=== PATIENT | female | born 1995 | race Hispanic/Latino ===

== ENCOUNTER 2018-02-14 15:29 | Emergency (ER) | payer SELFPAY ==
[2018-02-14 16:11] LABS: Absolute Lymphocytes (CBC) 3.5 K/uL (0.7-4.9); Absolute Monocytes 0.6 K/uL (0.1-1.3); Absolute Neutrophil 9.8 K/uL (1.8-8.0); Basophils % 0.4 % (0-1.3); Hematocrit 41.5 % (36.0-45.0); MCH 28.3 pg (27.0-35.0); MPV 9.9 fL (7.6-11.3); Monocytes % 4.5 % (3.3-12.3); RBC Red Blood Cell Count 4.88 M/uL (3.86-4.86)
[2018-02-14 16:25] LABS: Bicarbonate 25 mEq/L (21-31); Glucose Level 111 mg/dL (65-120); Lipase 24 U/L (22-51); Potassium 3.4 mEq/L (3.6-5.0); Sodium Level 140 mEq/L (135-145)
[2018-02-14 16:27] LABS: Urine Amorphous Sediment 1+ /HPF (NONE SEEN); Urine Bacteria 20-50 /HPF (<20); Urine Culture Reflex Order REFLEXED; Urine RBC <5 /HPF (NONE SEEN)
[2018-02-14 16:31] LABS: ALT/SGPT 18 IU/L (10-60); AST/SGOT 20 IU/L (10-42); Albumin 4.3 g/dL (3.2-5.5); Alkaline Phosphatase 89 IU/L (42-121); Amylase Level 62 U/L (28-100); BUN Blood Urea Nitrogen 16 mg/dL (6-20); Bilirubin Direct 0.1 mg/dL (0-0.2); Bilirubin Total 0.7 mg/dL (0.3-1.2)
[2018-02-14 16:32] LABS: Urine Blood NEGATIVE (NEG); Urine Glucose NEGATIVE (NEG); Urine Protein NEGATIVE (NEG); Urine Specific Gravity >1.030 (1.005-1.030); Urine pH 5.5 (5.0-7.0)
[2018-02-14] MEDS ORDERED: NA CHLORIDE 0.9% 1,000 ML ONE (16:32)
--- NOTE | 2018-02-14 17:04 | RAD REPORT ---
EXAM DESCRIPTION: US - Abdomen Exam Limited - 02/14/2018 4:55 pm CLINICAL HISTORY: Abdominal pain. COMPARISON: None. FINDINGS: The patient was not NPO. The gallbladder is mildly contracted. A 1.8 centimeter stone is present within the gallbladder neck. The gallbladder wall is mildly thicken ed measuring 3.2 millimeters. The biliary tree is normal caliber. IMPRESSION: Cholelithiasis. Mild gallbladder wall thickening may indicate cholecystitis or be secondary to the patient not being NPO resulting in mild contraction of the gallbladder
--- NOTE | 2018-02-14 17:04 | EDPHYS ---
Physician Documentation [facility] Name: Vira Silva Age: 22 yrs Sex: Female : 1995 Arrival Date: 02/14/2018 Time: 15:31 Bed 25 Private MD: ED Physician Sree Armando HPI: 02/14 16:09 This 22 yrs old Female presents to ER via EMS with complaints of Abdominal snw Pain. 16:09 The patient presents with abdominal pain in the right upper quadrant. Onset: The snw symptoms/episode began/occurred gradually, 2 month(s) ago, and became worse today, and became persistent. The symptoms do not radiate. Associated signs and symptoms: Pertinent positives: nausea. The symptoms are described as stabbing. Severity of pain: At its worst the pain was moderate. The patient has experienced similar episodes in the past. The patient has not recently seen a physician. 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 - Social history:: Smoking status: Patient uses tobacco products, smokes one-half pack cigarettes per day, Patient uses alcohol, occasionally. ROS: 16:06 Constitutional: Negative for fever, chills, and weight loss, Eyes: Negative for injury, snw pain, redness, and discharge, ENT: Negative for injury, pain, and discharge, Neck: Negative for injury, pain, and swelling, Cardiovascular: Negative for chest pain, palpitations, and edema, Respiratory: Negative for shortness of breath, cough, wheezing, and pleuritic chest pain, Abdomen/GI: Positive for abdominal pain, nausea, Negative for vomiting, diarrhea, and constipation, Back: Negative for injury and pain, : Negative for injury, bleeding, discharge, and swelling, MS/Extremity: Negative for injury and deformity, Skin: Negative for injury, rash, and discoloration, Neuro: Negative for headache, weakness, numbness, tingling, and seizure. Exam: 16:06 Constitutional: This is a well developed, well nourished patient who is awake, alert, snw and in no acute distress. Head/Face: Normocephalic, atraumatic. Eyes: Pupils equal round and reactive to light, extra-ocular motions intact. Lids and lashes normal. Conjunctiva and sclera are non-icteric and not injected. Cornea within normal limits. Periorbital areas with no swelling, redness, or edema. ENT: Nares patent. No nasal discharge, no septal abnormalities noted. Tympanic membranes are normal and external auditory canals are clear. Oropharynx with no redness, swelling, or masses, exudates, or evidence of obstruction, uvula midline. Mucous membranes moist. Neck: Trachea midline, no thyromegaly or masses palpated, and no cervical lymphadenopathy. Supple, full range of motion without nuchal rigidity, or vertebral point tenderness. No Meningismus. Chest/axilla: Normal chest wall appearance and motion. Nontender with no deformity. No lesions are appreciated. Cardiovascular: Regular rate and rhythm with a normal S1 and S2. No gallops, murmurs, or rubs. Normal PMI, no JVD. No pulse deficits. Respiratory: Lungs have equal breath sounds bilaterally, clear to auscultation and percussion. No rales, rhonchi or wheezes noted. No increased work of breathing, no retractions or nasal flaring. Abdomen/GI: Soft, mildly tender, with hyperactive bowel sounds. No distension or tympany. No guarding or rebound. No evidence of tenderness throughout. Minimal/mild + Sherman's Back: No spinal tenderness. No costovertebral tenderness. Full range of motion. Skin: Warm, dry with normal turgor. Normal color with no rashes, no lesions, and no evidence of cellulitis. MS/ Extremity: Pulses equal, no cyanosis. Neurovascular intact. Full, normal range of motion. Neuro: Awake and alert, GCS 15, oriented to person, place, time, and situation. Cranial nerves II-XII grossly intact. Motor strength 5/5 in all extremities. Sensory grossly intact. Cerebellar exam normal. Normal gait. Vital Signs: 15:34 BP 137 / 111; Pulse 100; Resp 19; Temp 98.4; Pulse Ox 99% on R/A; Weight 79.38 kg; aj Height 5 ft. 1 in. (154.94 cm); Pain 5/10; 16:50 BP 104 / 51; Pulse 91; Resp 16; Pulse Ox 100% on R/A; aj 17:22 BP 98 / 83; Pulse 85; Resp 17; Pulse Ox 99% on R/A; aj 15:34 Body Mass Index 33.07 (79.38 kg, 154.94 cm) aj MDM: 15:32 Patient medically screened. snw 17:09 Data reviewed: vital signs, nurses notes. Data interpreted: Pulse oximetry: on room air snw is 100 %. Interpretation: normal. Counseling: I had a detailed discussion with the patient and/or guardian regarding: the historical points, exam findings, and any diagnostic results supporting the discharge/admit diagnosis, lab results, radiology results, the need for outpatient follow up, to return to the emergency department if symptoms worsen or persist or if there are any questions or concerns that arise at home. Special discussion: Based on the patient's Hx, exam, and Dx evaluation, there is no indication for emergent surgery or inpatient Tx. It is understood by the patient/guardian that if the Sx's persist or worsen they need to return immediately for re-evaluation. Based on the history and exam findings, there is no indication for further emergent testing or inpatient evaluation. I discussed with the patient/guardian the need to see the general surgeon for further evaluation of the symptoms. I discussed with the patient/guardian the need to see the primary care provider for further evaluation of the symptoms. 02/14 15:33 Order name: [facility]rine [facility] 02/14 15:33 Order name: Urine Microscopic Only; Complete Time: 16:38 snw 02/14 15:43 Order name: Amylase, Serum; Complete Time: 16:38 snw 02/14 15:43 Order name: Basic Metabolic Panel; Complete Time: 16:38 snw 02/14 15:43 Order name: CBC with Diff; Complete Time: 16:38 snw 02/14 15:43 Order name: Creatinine for Radiology; Complete Time: 16:38 snw 02/14 15:43 Order name: Hepatic Function; Complete Time: 16:38 snw 02/14 15:43 Order name: Lipase; Complete Time: 16:38 snw 02/14 15:43 Order name: US Abdomen Limited; Complete Time: 17:10 snw 02/14 16:28 Order name: Urine Dipstick--Ancillary (enter results); Complete Time: 16:38 mi 02/14 16:28 Order name: Urine --Ancillary (enter results); Complete Time: 16:38 ms 02/14 15:33 Order name: Urine Test (obtain specimen); Complete Time: 16:17 snw 02/14 15:33 Order name: Urine Dipstick-Ancillary (obtain specimen); Complete Time: 16:17 snw 02/14 15:43 Order name: IV Saline Lock; Complete Time: 16:17 snw 02/14 15:43 Order name: Labs collected and sent; Complete Time: 16:17 snw Administered Medications: 16:12 Not Given (given per EMS prior to arrival): TORadol 30 mg IVP once snw 16:15 Drug: NS 0.9% 1000 ml Route: IV; Rate: 125 ml/hr; Site: right forearm; aj 17:22 Follow up: Response: No adverse reaction; IV Status: Order to discontinue infusion; IV aj Intake: 500ml 17:21 Drug: Mefoxin 1 grams Route: IVPB; Infused Over: 30 mins; Site: right antecubital; aj Disposition: 02/14/18 17:04 Discharged to Home. Impression: Cholelithiasis. - Condition is Stable. - Discharge Instructions: Fat and Cholesterol Restricted Diet, Cholelithiasis. - Prescriptions for cefdinir 300 mg Oral capsule - take 1 capsule by ORAL route every 12 hours; 20 capsule. Bentyl 20 mg Oral Tablet - take 2 tablet by ORAL route every 6 hours As needed; 40 tablet. Tylenol- Codeine #3 300-30 mg Oral Tablet - take 2 tablet by ORAL route every 6 hours As needed; 6 tablet. promethazine 25 mg Oral Tablet - take 1 tablet by ORAL route every 6 hours As needed; 20 tablet. - Work release form, Medication Reconciliation Form, Thank You Letter, Antibiotic Education, Prescription Opioid Use form. - Follow up: Jay Batista MD; When: Tomorrow; Reason: Recheck today's complaints, Continuance of care. Addendum: 03/20/2018 19:39 Co-signature as Attending Physician, Sree Armando MD I agree with the assessment and k dr plan of care. Signatures: Dispatcher [employer] Rylie Monahan RN RN aj Rittger, Kevin, MD MD kdr Therrien, Shelly, FERNANDA-C LIME TRIMMER-Csnw Corrections: (The following items were deleted from the chart) 02/14 17:24 17:04 02/14/2018 17:04 Discharged to Home. Impression: Cholelithiasis. Condition is aj Stable. Forms are Medication Reconciliation Form, Thank You Letter, Antibiotic Education, Prescription Opioid Use. Follow up: Jay Batista; When: Tomorrow; Reason: Recheck today's complaints, Continuance of care. snw
--- NOTE | 2018-02-14 17:04 | ER ---
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 Patient reports aj pain has been intermittent for 2 months and is worse after moving and eating. Patient reports eating just prior to pain starting today. Transition of care: patient was not received from another setting of care. Onset of symptoms was February 14, 2018. Care prior to arrival: Medication(s) given: Toradol 30 mg IV IV initiated. 20 GA, in the right antecubital area. 15:31 Method Of Arrival: EMS: [facility] aj 15:31 Acuity: SERGIO 3 aj Triage Assessment: 15:34 General: Appears in no apparent distress. uncomfortable, Behavior is calm, cooperative, aj appropriate for age. Pain: Complains of pain in epigastric area and right upper quadrant Pain currently is 5 out of 10 on a pain scale. Neuro: Level of Consciousness is awake, alert, obeys commands, Oriented to person, place, time, situation. Respiratory: Airway is patent Respiratory effort is even, unlabored, Respiratory pattern is regular, symmetrical. GI: Abdomen is non-distended, obese, Reports lower abdominal pain, nausea. Derm: Skin is intact, is healthy with good turgor, Skin is pink, warm \T\ dry. normal. 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 - Social history:: Smoking status: Patient uses tobacco products, smokes one-half pack cigarettes per day, Patient uses alcohol, occasionally. Screenin:40 Abuse screen: Denies threats or abuse. Denies injuries from another. Nutritional aj screening: No deficits noted. Tuberculosis screening: No symptoms or risk factors identified. Fall Risk None identified. Assessment: 15:40 Reassessment: See triage. aj 17:22 Reassessment: Patient appears in no apparent distress at this time. No changes from aj previously documented assessment. Patient and/or family updated on plan of care and expected duration. Pain level reassessed. Patient is alert, oriented x 3, equal unlabored respirations, skin warm/dry/pink. Patient states symptoms have improved. 17:24 GI: aj Vital Signs: 15:34 BP 137 / 111; Pulse 100; Resp 19; Temp 98.4; Pulse Ox 99% on R/A; Weight 79.38 kg; aj Height 5 ft. 1 in. (154.94 cm); Pain 5/10; 16:50 BP 104 / 51; Pulse 91; Resp 16; Pulse Ox 100% on R/A; aj 17:22 BP 98 / 83; Pulse 85; Resp 17; Pulse Ox 99% on R/A; aj 15:34 Body Mass Index 33.07 (79.38 kg, 154.94 cm) aj ED Course: 15:31 Patient arrived in ED. aj 15:32 Gladys Garza FNP-C is PHCP. snw 15:32 Sree Armando MD is Attending Physician. snw 15:34 Triage completed. aj 15:34 Arm band placed on left wrist. Patient placed in an exam room, on a stretcher. aj 15:41 Maintain EMS IV. Gauge \T\ site: 20 to Right AC. IV is patent. aj 15:42 Rylie Saunders, RN is Primary Nurse. aj 16:37 Ultrasound completed. Patient tolerated well. Notified CRIMINAL DEFENSE LAWYER/FARZANA atkinson. sg3 16:55 US Abdomen Limited In Process Unspecified. EDMS 17:03 Jay Batista MD is Referral Physician. snw 17:22 Patient has correct armband on for positive identification. aj 17:23 No provider procedures requiring assistance completed. IV discontinued, intact, aj bleeding controlled, No redness/swelling at site. Pressure dressing applied. Administered Medications: 16:12 Not Given (given per EMS prior to arrival): TORadol 30 mg IVP once snw 16:15 Drug: NS 0.9% 1000 ml Route: IV; Rate: 125 ml/hr; Site: right forearm; aj 17:22 Follow up: Response: No adverse reaction; IV Status: Order to discontinue infusion; IV aj Intake: 500ml 17:21 Drug: Mefoxin 1 grams Route: IVPB; Infused Over: 30 mins; Site: right antecubital; rajwinder Intake: 17:22 IV: 500ml; Total: 500ml. rajwinder Outcome: 17:04 Discharge ordered by . kishor 17:22 Discharged to home ambulatory, with family. rajwinder 17:22 Condition: good 17:22 Discharge instructions given to patient, Instructed on discharge instructions, follow up and referral plans. medication usage, Demonstrated understanding of instructions, follow-up care, medications, Prescriptions given X 4. 17:24 Patient left the ED. aj Addendum: 02/18/2018 19:15 Addendum: Culture Results: Positive urine culture. No further action required. Bacteria i w sensitive to prescribed antibiotic. Signatures: Dispatcher [employer] Rylie Monahan, RN RN Gladys Oneill, CIRCLE SHEAR OPERATOR-C CIRCLE SHEAR OPERATOR-Csnw Sabrina Almodovar RN RN iw Godinez, Sarah sg3
[2018-02-14] MEDS ORDERED: CEFOXITIN/SWI 1gm 1 GM/10 ML SYR ONE (17:26)
[2018-02-14 17:27] VITALS: TEMP 98.4
[2018-02-14 17:29] VITALS: BP 98/83; O2SAT 99
== END 2018-02-14 17:24 | disposition home or self-care (01) ==
LOC: ER 15:29
DX: K80.20 Calculus of gallbladder without cholecystitis without obstruction (principal)
CPT/HCPCS: 36415; 76705; 80048; 80076; 81003; 81015; 81025; 82150; 83690; 85025; 87077; 87086; 87088; 87186; 96361; 96374; 99284; J7030

== ENCOUNTER 2019-02-22 00:09 | Emergency (ER) | payer SELFPAY ==
--- NOTE | 2019-02-22 00:35 | ER ---
Nurse's Notes [facility] Name: Vira Silva Age: 23 yrs Sex: Female : 1995 Arrival Date: 02/22/2019 Time: 00:12 Bed 13 Private MD: Diagnosis: Otitis media, unspecified, left ear Presentation: 02/22 00:23 Presenting complaint: Patient states: cough X1 week and bilateral ear pain X1 day. ak1 Transition of care: patient was not received from another setting of care. Onset of symptoms was February 22, 2019. Risk Assessment: Do you want to hurt yourself or someone else? Patient reports no desire to harm self or others. Initial Sepsis Screen: Does the patient meet any 2 criteria? No. Patient's initial sepsis screen is negative. Does the patient have a suspected source of infection? No. Patient's initial sepsis screen is negative. Care prior to arrival: None. 00:23 Acuity: SERGIO 4 ak1 00:23 Method Of Arrival: Ambulatory ak1 Triage Assessment: 00:24 General: Appears in no apparent distress. Behavior is calm, cooperative. Pain: ak1 Complains of pain in right ear and left ear. 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 - Social history:: Smoking status: Patient uses tobacco products, smokes one-half pack cigarettes per day. - Ebola Screening: : No symptoms or risks identified at this time. Screenin:24 Abuse screen: Denies threats or abuse. Denies injuries from another. Nutritional ak1 screening: No deficits noted. Tuberculosis screening: No symptoms or risk factors identified. Fall Risk None identified. Assessment: 00:30 General: Appears in no apparent distress. comfortable, Behavior is calm, cooperative, aa1 appropriate for age. Pain: Complains of pain in left ear and right ear. Neuro: Level of Consciousness is awake, alert, obeys commands, Oriented to person, place, time, situation. Respiratory: Reports cough that is non-productive, Airway is patent Respiratory effort is even, unlabored, Respiratory pattern is regular, symmetrical, Breath sounds are clear bilaterally. GI: No signs and/or symptoms were reported involving the gastrointestinal system. : No signs and/or symptoms were reported regarding the genitourinary system. EENT: Reports pain in left ear and right ear. Derm: Skin is intact, is healthy with good turgor, Skin is pink, warm \T\ dry. Musculoskeletal: Circulation, motion, and sensation intact. Capillary refill < 3 seconds. 00:46 Reassessment: Patient appears in no apparent distress at this time. Patient is alert, aa1 oriented x 3, equal unlabored respirations, skin warm/dry/pink. Discussed d/c \T\ f/u instructions with pt; denies questions or concerns at this time. Vital Signs: 00:21 BP 113 / 72; Pulse 115; Resp 18; Temp 98.1; Pulse Ox 99% on R/A; Weight 90.72 kg (R); ak1 Height 5 ft. 1 in. (154.94 cm) (R); Pain 9/10; 00:46 BP 109 / 73; Pulse 92; Resp 18; Pulse Ox 98% on R/A; aa1 00:21 Body Mass Index 37.79 (90.72 kg, 154.94 cm) ak1 ED Course: 00:12 Patient arrived in ED. am2 00:15 [facility]C [facility] kb 00:15 Jerod Waller MD is Attending Physician. kb 00:21 Arm band placed on Patient placed in an exam room, on a stretcher, Patient notified of ak1 wait time. 00:23 Triage completed. ak1 00:24 Patient has correct armband on for positive identification. ak1 00:46 Mary Archuleta, SCOTTIE is Primary Nurse. aa1 00:46 No provider procedures requiring assistance completed. Patient did not have IV access aa1 during this emergency room visit. Administered Medications: No medications were administered Outcome: 00:34 Discharge ordered by . kb 00:46 Discharged to home ambulatory, with significant other. aa1 00:46 Condition: good 00:46 Discharge instructions given to patient, significant other, Instructed on discharge instructions, follow up and referral plans. medication usage, Demonstrated understanding of instructions, follow-up care, medications, Prescriptions given X 1. 00:53 Patient left the ED. aa1 Signatures: Malu Hansen, FERNANDA-C PLATEMAN-Ckb Mary Archuleta RN RN aa1 Savannah Gandhi RN RN ak1 Rylie Dickinson am2
--- NOTE | 2019-02-22 00:36 | EDPHYS ---
Physician Documentation [facility] Name: Vira Silva Age: 23 yrs Sex: Female : 1995 Arrival Date: 02/22/2019 Time: 00:12 Bed 13 Private MD: ED Physician Jerod Waller HPI: 02/22 00:33 This 23 yrs old Female presents to ER via Ambulatory with complaints of Ear kb Pain, Cough. 00:33 The patient presents with pain, moderate. The complaints affect the left ear. Onset: kb The symptoms/episode began/occurred 4 day(s) ago. Modifying factors: The symptoms are alleviated by nothing, the symptoms are aggravated by nothing. Associated signs and symptoms: Pertinent positives: cough, sinus trouble, Pertinent negatives: fever, lightheadedness, nausea, rhinorrhea, shortness of breath, sore throat, tinnitus, vertigo, vomiting. Severity of symptoms: At their worst the symptoms were moderate in the emergency department the symptoms are unchanged. The patient has not experienced similar symptoms in the past. The patient has not recently seen a physician. Pt reports cough and congestion for one week, ear pain for 3-4 days. 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 - Social history:: Smoking status: Patient uses tobacco products, smokes one-half pack cigarettes per day. - Ebola Screening: : No symptoms or risks identified at this time. ROS: 00:32 Constitutional: Negative for fever, chills, and weight loss, Neck: Negative for injury, kb pain, and swelling, Cardiovascular: Negative for chest pain, palpitations, and edema, Abdomen/GI: Negative for abdominal pain, nausea, vomiting, diarrhea, and constipation, Back: Negative for injury and pain, MS/Extremity: Negative for injury and deformity, Skin: Negative for injury, rash, and discoloration, Neuro: Negative for headache, weakness, numbness, tingling, and seizure. 00:32 ENT: Positive for ear pain, sinus congestion. 00:32 Respiratory: Positive for cough. Exam: 00:32 Constitutional: This is a well developed, well nourished patient who is awake, alert, kb and in no acute distress. Head/Face: Normocephalic, atraumatic. Neck: Trachea midline, no thyromegaly or masses palpated, and no cervical lymphadenopathy. Supple, full range of motion without nuchal rigidity, or vertebral point tenderness. No Meningismus. Chest/axilla: Normal chest wall appearance and motion. Nontender with no deformity. No lesions are appreciated. Cardiovascular: Regular rate and rhythm with a normal S1 and S2. No gallops, murmurs, or rubs. Normal PMI, no JVD. No pulse deficits. Respiratory: Lungs have equal breath sounds bilaterally, clear to auscultation and percussion. No rales, rhonchi or wheezes noted. No increased work of breathing, no retractions or nasal flaring. Abdomen/GI: Soft, non-tender, with normal bowel sounds. No distension or tympany. No guarding or rebound. No evidence of tenderness throughout. Skin: Warm, dry with normal turgor. Normal color with no rashes, no lesions, and no evidence of cellulitis. MS/ Extremity: Pulses equal, no cyanosis. Neurovascular intact. Full, normal range of motion. Neuro: Awake and alert, GCS 15, oriented to person, place, time, and situation. Cranial nerves II-XII grossly intact. Motor strength 5/5 in all extremities. Sensory grossly intact. Cerebellar exam normal. Normal gait. 00:32 ENT: External ear(s): are unremarkable, Ear canal(s): are normal, TM's: fluid levels, on the left, Nose: is normal, Mouth: is normal, Posterior pharynx: is normal. Vital Signs: 00:21 BP 113 / 72; Pulse 115; Resp 18; Temp 98.1; Pulse Ox 99% on R/A; Weight 90.72 kg (R); ak1 Height 5 ft. 1 in. (154.94 cm) (R); Pain 9/10; 00:46 BP 109 / 73; Pulse 92; Resp 18; Pulse Ox 98% on R/A; aa1 00:21 Body Mass Index 37.79 (90.72 kg, 154.94 cm) ak1 MDM: 00:23 Patient medically screened. kb 00:32 Data reviewed: vital signs, nurses notes. Data interpreted: Pulse oximetry: on room air kb is 99 %. Interpretation: normal. Counseling: I had a detailed discussion with the patient and/or guardian regarding: the historical points, exam findings, and any diagnostic results supporting the discharge/admit diagnosis, the need for outpatient follow up, a family practitioner, to return to the emergency department if symptoms worsen or persist or if there are any questions or concerns that arise at home. Administered Medications: No medications were administered Disposition: 02/22/19 00:34 Discharged to Home. Impression: Otitis media, unspecified, left ear. - Condition is Stable. - Discharge Instructions: Otitis Media, Adult, [id number]. - Prescriptions for Amoxicillin 875 mg Oral Tablet - take 1 tablet by ORAL route every 12 hours for 10 days; 20 tablet. - Medication Reconciliation Form, Thank You Letter, Antibiotic Education, Prescription Opioid Use form. - Follow up: Emergency Department; When: As needed; Reason: Worsening of condition. Follow up: Private Physician; When: 2 - 3 days; Reason: Recheck today's complaints, Continuance of care, Re-evaluation by your physician. Signatures: Malu Hansen, ROUTER OPERATOR PIN-C ROUTER OPERATOR PIN-Ckb Mary Archuleta, RN RN aa1 Savannah Gandhi RN RN ak1 Corrections: (The following items were deleted from the chart) 00:53 00:34 02/22/2019 00:34 Discharged to Home. Impression: Otitis media, unspecified, left aa1 ear. Condition is Stable. Forms are Medication Reconciliation Form, Thank You Letter, Antibiotic Education, Prescription Opioid Use. Follow up: Emergency Department; When: As needed; Reason: Worsening of condition. Follow up: Private Physician; When: 2 - 3 days; Reason: Recheck today's complaints, Continuance of care, Re-evaluation by your physician. kb
[2019-02-22 01:20] VITALS: TEMP 98.1
[2019-02-22 01:21] VITALS: BP 109/73; O2SAT 98
== END 2019-02-22 00:53 | disposition home or self-care (01) ==
LOC: ER 00:09
DX: H66.92 Otitis media, unspecified, left ear (principal); F17.210 Nicotine dependence, cigarettes, uncomplicated
CPT/HCPCS: 99282

== ENCOUNTER 2019-02-27 23:53 | Emergency (ER) | payer SELFPAY ==
--- NOTE | 2019-02-28 01:08 | EDPHYS ---
Physician Documentation [facility] Name: Vira Silva Age: 23 yrs Sex: Female : 1995 Arrival Date: 02/27/2019 Time: 23:54 Bed 20 Private MD: ED Physician Balijt Baig HPI: 02/28 00:26 This 23 yrs old Female presents to ER via Ambulatory with complaints of Breast jr8 Lump. 00:26 Onset: The symptoms/episode began/occurred gradually, 1 week(s) ago. Associated signs jr8 and symptoms: Pertinent positives: cough, earache, Pertinent negatives: chest pain, fever. Modifying factors: the patient symptoms are aggravated by pressure to site. The patient has not experienced similar symptoms in the past. The patient has been recently seen at the [facility] Emergency Department, this week, for unrelated complaints. Patient presents with the complaint of a small lump to her left breast that was noticed after her underwire was irritating it. She denies additional breast lumps, family history, any redness to the site or drainage, and fever. Reports she was seen last week in this ER for left ear pain and discharged home with an ear infection. Reports that she never got her antibiotic prescription filled. . 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 - Social history:: Smoking status: Patient uses tobacco products, one pack per week. - Ebola Screening: : Patient negative for fever greater than or equal to 101.5 degrees Fahrenheit, and additional compatible Ebola Virus Disease symptoms Patient denies exposure to infectious person Patient denies travel to an Ebola-affected area in the 21 days before illness onset No symptoms or risks identified at this time. ROS: 00:26 Constitutional: Negative for fever, chills, and weight loss, ENT: Negative for injury, jr8 pain, and discharge, Cardiovascular: Negative for chest pain, palpitations, and edema, Respiratory: Negative for shortness of breath, wheezing, and pleuritic chest pain. Positive for cough Abdomen/GI: Negative for abdominal pain, nausea, vomiting, diarrhea, and constipation, MS/Extremity: Negative for injury and deformity, Skin: Negative for injury, rash, and discoloration, Neuro: Negative for headache, weakness, numbness, tingling, and seizure. Exam: 00:30 Constitutional: This is a well developed, well nourished patient who is awake, alert, jr8 and in no acute distress. Cardiovascular: Regular rate and rhythm with a normal S1 and S2. No gallops, murmurs, or rubs. Normal PMI, no JVD. No pulse deficits. Respiratory: Lungs have equal breath sounds bilaterally, clear to auscultation and percussion. No rales, rhonchi or wheezes noted. No increased work of breathing, no retractions or nasal flaring. Abdomen/GI: Soft, non-tender, with normal bowel sounds. No distension or tympany. No guarding or rebound. No evidence of tenderness throughout. Skin: Warm, dry with normal turgor. Normal color with no rashes, no lesions, and no evidence of cellulitis. MS/ Extremity: Pulses equal, no cyanosis. Neurovascular intact. Full, normal range of motion. Neuro: Awake and alert, GCS 15, oriented to person, place, time, and situation. Cranial nerves II-XII grossly intact. Motor strength 5/5 in all extremities. Sensory grossly intact. Cerebellar exam normal. Normal gait. 00:30 ENT: External ear(s): are unremarkable, Ear canal(s): are normal, TM's: bulging, on the left, erythema, that is mild, on the left, Nose: is normal, Mouth: is normal, Posterior pharynx: is normal. 00:30 Chest/axilla: Inspection: normal, no abscess, no cellulitis, no rash, assymetry, is not appreciated, Palpation: 1 cm sized firm and moveable nodule noted to the medial aspect of the left breast that is tender to palpation, Axilla: are normal, no abscess, no cellulitis, no mass, no palpable nodes, no rash, no acute changes, Breasts: abscess, not appreciated, cellulitis, is not appreciated, mass(es), that is small, in the left breast, that is tender, that is freely movable, nipple discharge, is not appreciated, swelling, is not appreciated, tenderness, is not appreciated. Vital Signs: 00:17 BP 112 / 66; Pulse 110; Resp 20; Temp 98.3; Pulse Ox 100% on R/A; Weight 97.52 kg; ed1 Height 5 ft. 1 in. (154.94 cm); Pain 6/10; 01:00 BP 115 / 71; Pulse 93; Resp 19; Pulse Ox 100% on R/A; Pain 6/10; ed1 00:17 Body Mass Index 40.62 (97.52 kg, 154.94 cm) ed1 MDM: 00:58 Patient medically screened. jr8 01:02 Differential diagnosis: lymphadenopathy, breast fibroadenoma. Data reviewed: vital jr8 signs, nurses notes. Counseling: I had a detailed discussion with the patient and/or guardian regarding: the historical points, exam findings, and any diagnostic results supporting the discharge/admit diagnosis, the need for outpatient follow up, for definitive care, a family practitioner, to return to the emergency department if symptoms worsen or persist or if there are any questions or concerns that arise at home. ED course: Discussed with patient that her findings are consistent with lymphadenopathy, which may be related to a current viral illness or infection. Encouraged patient to fill her Rx for antibiotics that was provided last week, and follow up with her PCP for further evaluation if there is no improvement or a worsening of symptoms. Patient verbalized understanding. . Administered Medications: No medications were administered Disposition: 01:41 Co-signature as Attending Physician, Baljit Baig MD. rn Disposition: 02/28/19 01:08 Discharged to Home. Impression: Localized swelling, mass and lump, trunk - Left breast, lymphadenopathy. - Condition is Stable. - Discharge Instructions: Breast Tenderness, Lymphadenopathy. - Medication Reconciliation Form, Thank You Letter, Antibiotic Education, Prescription Opioid Use form. - Follow up: Private Physician; When: 7 - 10 days; Reason: Worsening of condition, Recheck today's complaints, Re-evaluation by your physician. - Problem is new. - Symptoms are unchanged. Signatures: Baljit Baig MD MD rn Riggs, Erika, RN RN ed1 Michael Fierro PA PA jr8 Corrections: (The following items were deleted from the chart) 01:27 01:08 02/28/2019 01:08 Discharged to Home. Impression: Localized swelling, mass and ed1 lump, trunk - Left breast; lymphadenopathy. Condition is Stable. Forms are Medication Reconciliation Form, Thank You Letter, Antibiotic Education, Prescription Opioid Use. Follow up: Private Physician; When: 7 - 10 days; Reason: Worsening of condition, Recheck today's complaints, Re-evaluation by your physician. Problem is new. Symptoms are unchanged. jr8
--- NOTE | 2019-02-28 01:08 | ER ---
Nurse's Notes [facility] Name: Vira Silva Age: 23 yrs Sex: Female : 1995 Arrival Date: 02/27/2019 Time: 23:54 Bed 20 Private MD: Diagnosis: Localized swelling, mass and lump, trunk-Left breast;lymphadenopathy Presentation: 02/28 00:14 Presenting complaint: Patient states: I noticed a lump on my left breast at the ed1 beginning of last week and if I am not wearing a bra and I lean over it hurts. It also hurts if I lay on my stomach. Transition of care: patient was not received from another setting of care. Onset of symptoms was February 21, 2019. Risk Assessment: Do you want to hurt yourself or someone else? Patient reports no desire to harm self or others. Initial Sepsis Screen: Does the patient meet any 2 criteria? No. Patient's initial sepsis screen is negative. Does the patient have a suspected source of infection? No. Patient's initial sepsis screen is negative. Care prior to arrival: None. 00:14 Method Of Arrival: Ambulatory ed1 00:14 Acuity: SERGIO 5 ed1 Triage Assessment: 00:17 General: Appears in no apparent distress. Behavior is calm, cooperative. Pain: ed1 Complains of pain in left breast Pain currently is 6 out of 10 on a pain scale. Quality of pain is described as aching, Pain began 7 days ago. EENT: No signs and/or symptoms were reported regarding the EENT system. Neuro: Level of Consciousness is awake, alert, obeys commands, Oriented to person, place, time, situation. Cardiovascular: Denies chest pain, Heart tones S1 S2 present. Respiratory: Airway is patent Respiratory effort is even, unlabored, Respiratory pattern is regular, symmetrical, Breath sounds are clear bilaterally. GI: No signs and/or symptoms were reported involving the gastrointestinal system. : No signs and/or symptoms were reported regarding the genitourinary system. Derm: Skin is intact, is healthy with good turgor, Skin is pink, warm \T\ dry. Musculoskeletal: Circulation, motion, and sensation intact. Range of motion: intact in all extremities. 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 - Social history:: Smoking status: Patient uses tobacco products, one pack per week. - Ebola Screening: : Patient negative for fever greater than or equal to 101.5 degrees Fahrenheit, and additional compatible Ebola Virus Disease symptoms Patient denies exposure to infectious person Patient denies travel to an Ebola-affected area in the 21 days before illness onset No symptoms or risks identified at this time. Screenin:19 Abuse screen: Denies threats or abuse. Denies injuries from another. Nutritional ed1 screening: No deficits noted. Tuberculosis screening: No symptoms or risk factors identified. Fall Risk None identified. Assessment: 00:19 General: See triage assessment. ed1 01:00 Reassessment: Patient appears in no apparent distress at this time. No changes from ed1 previously documented assessment. Patient and/or family updated on plan of care and expected duration. Pain level reassessed. Patient is alert, oriented x 3, equal unlabored respirations, skin warm/dry/pink. Vital Signs: 00:17 BP 112 / 66; Pulse 110; Resp 20; Temp 98.3; Pulse Ox 100% on R/A; Weight 97.52 kg; ed1 Height 5 ft. 1 in. (154.94 cm); Pain 6/10; 01:00 BP 115 / 71; Pulse 93; Resp 19; Pulse Ox 100% on R/A; Pain 6/10; ed1 00:17 Body Mass Index 40.62 (97.52 kg, 154.94 cm) ed1 ED Course: 02/27 23:54 Patient arrived in ED. do 02/28 00:06 Michael Fierro PA is PHCP. jr8 00:06 Baljit Baig MD is Attending Physician. jr8 00:14 Kim Quezada, SCOTTIE is Primary Nurse. ed1 00:16 Triage completed. ed1 00:17 Arm band placed on. ed1 00:19 Patient has correct armband on for positive identification. Placed in gown. Bed in low ed1 position. Call light in reach. Side rails up X 1. Pulse ox on. NIBP on. 01:26 No provider procedures requiring assistance completed. Patient did not have IV access ed1 during this emergency room visit. Administered Medications: No medications were administered Outcome: 01:08 Discharge ordered by MD. giraldo 01:26 Discharged to home ambulatory. ed1 01:26 Condition: good 01:26 Discharge instructions given to patient, Instructed on discharge instructions, follow up and referral plans. Demonstrated understanding of instructions, follow-up care. 01:27 Patient left the ED. ed1 Signatures: Kim Quezada RN RN ed1 Michael Fierro PA PA jr8 Virginia Licea do
[2019-02-28 03:21] VITALS: TEMP 98.3; O2SAT 100
[2019-02-28 03:25] VITALS: BP 115/71
== END 2019-02-28 01:27 | disposition home or self-care (01) ==
LOC: ER 23:53
DX: R59.0 Localized enlarged lymph nodes (principal); H92.02 Otalgia, left ear; Z72.0 Tobacco use
CPT/HCPCS: 99283

== ENCOUNTER 2019-03-01 23:27 | Emergency (ER) | payer SELFPAY ==
[2019-03-02 00:20] LABS: Absolute Lymphocytes (CBC) 3.1 K/uL (0.7-4.9); Absolute Monocytes 0.9 K/uL (0.1-1.3); Basophils % 0.3 % (0-1.3); Eosinophils % 3.9 % (0-4.4); Hematocrit 39.2 % (36.0-45.0); Lymphocytes % 18.6 % (15.3-44.8); MPV 9.4 fL (7.6-11.3); Monocytes % 5.2 % (3.3-12.3)
[2019-03-02] MEDS ORDERED: METHYLPREDNISOLONE 125 MG INJ ONE (00:21)
[2019-03-02] MEDS ORDERED: NA CHLORIDE 0.9% 500 ML ONE (00:22)
[2019-03-02] MEDS ORDERED: ALBUTEROL 2.5 MG/3 ML NEB SOL ONE (00:22)
[2019-03-02] MEDS ORDERED: ACETAMINOPHEN 500 MG TAB ONE (00:22)
[2019-03-02] MEDS ORDERED: IPRATROPIUM BROM 0.5MG/2.5ML ONE (00:22)
[2019-03-02 00:30] LABS: BUN Blood Urea Nitrogen 11 mg/dL (7-18); Bicarbonate 25 mmol/L (21-32); Glucose Level 92 mg/dL (74-106); Potassium 3.6 mmol/L (3.5-5.1); Sodium Level 141 mmol/L (136-145)
--- NOTE | 2019-03-02 00:45 | ER ---
Nurse's Notes [facility] Name: Vira Silva Age: 23 yrs Sex: Female : 1995 Arrival Date: 03/01/2019 Time: 23:28 Bed 6 Private MD: Diagnosis: Asthmatic bronchitis. Leukocytosis Presentation: 03/01 23:35 Presenting complaint: Patient states: chest tightness and sharp pain for 2 days non rr5 radiating. pain score 10/10. having some dry cough. they found out I have lump on my chest and I'm having left ear infection for 2 weeks. 23:35 Transition of care: patient was not received from another setting of care. Onset of rr5 symptoms was February 27, 2019. Risk Assessment: Do you want to hurt yourself or someone else? Patient reports no desire to harm self or others. Initial Sepsis Screen: Does the patient meet any 2 criteria? No. Patient's initial sepsis screen is negative. Does the patient have a suspected source of infection? No. Patient's initial sepsis screen is negative. Care prior to arrival: None. 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 - Social history:: Smoking status: Patient uses tobacco products, 4 sticks per day, Patient/guardian denies using alcohol, street drugs. - Ebola Screening: : Patient negative for fever greater than or equal to 101.5 degrees Fahrenheit, and additional compatible Ebola Virus Disease symptoms Patient denies exposure to infectious person Patient denies travel to an Ebola-affected area in the 21 days before illness onset. Screenin:05 Abuse screen: Denies threats or abuse. Denies injuries from another. Nutritional rr5 screening: No deficits noted. Tuberculosis screening: No symptoms or risk factors identified. Fall Risk IV access (20 points). Total Hill Fall Scale indicates No Risk (0-24 pts). Assessment: 03/01 23:40 General: Appears in no apparent distress. uncomfortable, Behavior is calm, cooperative, rr5 appropriate for age. Pain: Complains of pain in head and chest Pain does not radiate. Pain currently is 10 out of 10 on a pain scale. Quality of pain is described as sharp, Pain began 2-3 days ago. Is intermittent. Neuro: Level of Consciousness is awake, alert, obeys commands, Oriented to person, place, time, situation, Appropriate for age. Cardiovascular: Reports chest pain, Capillary refill < 3 seconds Patient's skin is warm and dry. Respiratory: Reports cough that is non-productive, dry, Airway is patent Respiratory effort is even, unlabored, Respiratory pattern is regular, symmetrical. 23:40 GI: No signs and/or symptoms were reported involving the gastrointestinal system. : rr5 No signs and/or symptoms were reported regarding the genitourinary system. EENT: Reports have ear infection for 2 weeks. Derm: Skin is intact, Skin temperature is warm. Musculoskeletal: Circulation, motion, and sensation intact. Range of motion: intact in all extremities. 03/02 00:20 Reassessment: Patient appears in no apparent distress at this time. Patient is alert, rr5 oriented x 3, equal unlabored respirations, skin warm/dry/pink. no complaints made awaiting for result. Patient states symptoms have improved. Reassessment: Patient appears in no apparent distress at this time. 01:10 Reassessment: Patient appears in no apparent distress at this time. Patient is alert, rr5 oriented x 3, equal unlabored respirations, skin warm/dry/pink. discharge instruction given and explained without complaints made. vitally stable. Patient denies pain at this time. Patient states feeling better. Patient states symptoms have improved. Vital Signs: 03/01 23:35 BP 134 / 68; Pulse 114; Resp 19; Temp 98.5; Pulse Ox 100% ; Weight 97.52 kg; Height 5 rr5 ft. 1 in. (154.94 cm); Pain 08/25; 03/02 00:30 BP 125 / 65; Pulse 105; Resp 20; Pulse Ox 99% on R/A; rr5 01:10 BP 126 / 60; Pulse 100; Resp 18; Temp 97.9; Pulse Ox 99% on R/A; Pain 0/10; rr5 03/01 23:35 Body Mass Index 40.62 (97.52 kg, 154.94 cm) rr5 ED Course: 03/01 23:28 Patient arrived in ED. am2 23:31 Huseyin Perdomo MD is Attending Physician. pkl 23:37 Brandyn Adams, SCOTTIE is Primary Nurse. rr5 23:40 Triage completed. rr5 23:50 Patient has correct armband on for positive identification. Placed in gown. Bed in low rr5 position. Call light in reach. Side rails up X2. booster assembler on. Pulse ox on. NIBP on. 03/02 00:00 Arm band placed on. EKG completed in triage. Results shown to MD. rr5 00:00 Inserted saline lock: 20 gauge in right forearm, using aseptic technique. Blood rr5 collected. 00:00 No provider procedures requiring assistance completed. Patient maintains SpO2 rr5 saturation greater than 95% on room air. 00:13 XRAY CXR (1 view) In Process Unspecified. EDMS 01:10 IV discontinued, intact, bleeding controlled, No redness/swelling at site. Pressure rr5 dressing applied. Administered Medications: 00:05 Drug: Albuterol - atroVENT (3:1) (2.5 mg - 0.5 mg) 3 ml Route: Nebulizer; rr5 01:19 Follow up: Response: No adverse reaction rr5 00:08 Drug: NS 0.9% 500 ml Route: IV; Rate: bolus; Site: right forearm; rr5 01:10 Follow up: Response: No adverse reaction; IV Status: Completed infusion; IV Intake: rr5 500ml 00:10 Drug: Tylenol 1000 mg Route: PO; rr5 01:20 Follow up: Response: No adverse reaction rr5 00:11 Drug: SOLU-Medrol 125 mg Route: IVP; Site: right forearm; rr5 01:19 Follow up: Response: No adverse reaction rr5 Intake: 01:10 IV: 500ml; Total: 500ml. rr5 Outcome: 00:45 Discharge ordered by . pkl 01:20 Discharged to home ambulatory. rr5 01:20 Condition: stable 01:20 Discharge instructions given to patient, Instructed on discharge instructions, follow up and referral plans. medication usage, Demonstrated understanding of instructions, follow-up care, medications, Prescriptions given X 3. 01:20 Patient left the ED. rr5 Signatures: Dispatcher [employer] EDHuseyin Santos MD MD pkl Moreno, Amanda am2 Roque, Raymond, RN RN rr5
--- NOTE | 2019-03-02 00:45 | EDPHYS ---
Physician Documentation [facility] Name: Vira Silva Age: 23 yrs Sex: Female : 1995 Arrival Date: 03/01/2019 Time: 23:28 Bed 6 Private MD: ED Physician Huseyin Perdomo HPI: 03/01 23:57 This 23 yrs old Female presents to ER via Ambulatory with complaints of Chest pkl Pain. 23:57 The patient or guardian reports chest pain that is located primarily in the substernal pkl area. The pain does not radiate. Associated signs and symptoms: Pertinent positives: cough, shortness of breath. The chest pain is described as sharp. 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 - Social history:: Smoking status: Patient uses tobacco products, 4 sticks per day, Patient/guardian denies using alcohol, street drugs. - Ebola Screening: : Patient negative for fever greater than or equal to 101.5 degrees Fahrenheit, and additional compatible Ebola Virus Disease symptoms Patient denies exposure to infectious person Patient denies travel to an Ebola-affected area in the 21 days before illness onset. ROS: 03/01 23:57 Eyes: Negative for injury, pain, redness, and discharge, ENT: Negative for injury, pkl pain, and discharge, Neck: Negative for injury, pain, and swelling. Cardiovascular: Positive for chest pain. Respiratory: Positive for cough, with no reported sputum, shortness of breath, wheezing. Abdomen/GI: Negative for abdominal pain, nausea, vomiting, and diarrhea. Back: Negative for acute changes. : Negative for urinary symptoms. MS/extremity: Negative for acute changes. Skin: Negative for rash. Neuro: Negative for altered mental status. Exam: 23:57 Head/Face: Normocephalic, atraumatic. Eyes: Pupils equal round and reactive to light, pkl extra-ocular motions intact. Lids and lashes normal. Conjunctiva and sclera are non-icteric and not injected. Cornea within normal limits. Periorbital areas with no swelling, redness, or edema. ENT: Nares patent. No nasal discharge, no septal abnormalities noted. Tympanic membranes are normal and external auditory canals are clear. Oropharynx with no redness, swelling, or masses, exudates, or evidence of obstruction, uvula midline. Mucous membranes moist. Neck: Trachea midline, no thyromegaly or masses palpated, and no cervical lymphadenopathy. Supple, full range of motion without nuchal rigidity, or vertebral point tenderness. No Meningismus. Chest/axilla: Normal chest wall appearance and motion. Nontender with no deformity. No lesions are appreciated. 23:57 Cardiovascular: Rate: tachycardic, actual rate is 114 bpm, Rhythm: regular. 23:57 Respiratory: the patient does not display signs of respiratory distress, Respirations: normal, Breath sounds: bronchial sounds, that are mild, are scattered. 23:57 Abdomen/GI: Exam negative for acute changes, Bowel sounds: normal, Palpation: abdomen is soft and non-tender, in all quadrants. 23:57 Back: Exam negative for acute changes. 23:57 : Exam negative for acute changes. 23:57 Musculoskeletal/extremity: Exam is negative for acute changes. 23:57 Skin: Exam negative for rash. 23:57 Neuro: Orientation: is normal, Mentation: is normal, Cranial nerves: grossly normal, Motor: is normal. Vital Signs: 23:35 BP 134 / 68; Pulse 114; Resp 19; Temp 98.5; Pulse Ox 100% ; Weight 97.52 kg; Height 5 rr5 ft. 1 in. (154.94 cm); Pain 10/10; 03/02 00:30 BP 125 / 65; Pulse 105; Resp 20; Pulse Ox 99% on R/A; rr5 01:10 BP 126 / 60; Pulse 100; Resp 18; Temp 97.9; Pulse Ox 99% on R/A; Pain 0/10; rr5 03/01 23:35 Body Mass Index 40.62 (97.52 kg, 154.94 cm) rr5 MDM: 03/01 23:31 Patient medically screened. pkl 03/02 00:43 Data reviewed: vital signs, nurses notes, lab test result(s), radiologic studies, plain pkl films. 03/01 23:55 Order name: CBC with Diff; Complete Time: 00:40 pkl 03/01 23:55 Order name: Chem 7; Complete Time: 00:40 pkl 03/01 23:55 Order name: D-Dimer; Complete Time: 00:40 pkl 03/01 23:56 Order name: XRAY CXR (1 view) pkl 03/02 00:02 Order name: Urine Dipstick--Ancillary (enter results) mw2 03/02 00:02 Order name: Urine --Ancillary (enter results) [facility] Administered Medications: 00:05 Drug: Albuterol - atroVENT (3:1) (2.5 mg - 0.5 mg) 3 ml Route: Nebulizer; rr5 01:19 Follow up: Response: No adverse reaction rr5 00:08 Drug: NS 0.9% 500 ml Route: IV; Rate: bolus; Site: right forearm; rr5 01:10 Follow up: Response: No adverse reaction; IV Status: Completed infusion; IV Intake: rr5 500ml 00:10 Drug: Tylenol 1000 mg Route: PO; rr5 01:20 Follow up: Response: No adverse reaction rr5 00:11 Drug: SOLU-Medrol 125 mg Route: IVP; Site: right forearm; rr5 01:19 Follow up: Response: No adverse reaction rr5 Disposition: 03/02/19 00:45 Discharged to Home. Impression: Asthmatic bronchitis. Leukocytosis. - Condition is Stable. - Prescriptions for Zithromax Z- Ramin 250 mg Oral Tablet - take 1 tablet by ORAL route as directed for 5 days Day 1 - take two (2) tablets one time. Day 2, 3, 4 , 5 take one (1) tablet once daily.; 6 tablet. Albuterol Sulfate 90 mcg/actuation - inhale 1-2 puff by INHALATION route every 4-6 hours; 1 Inhaler. Guaifenesin AC 10- 100 mg/5 mL Oral Liquid - take 10 milliliters by ORAL route every 8 hours As needed; 120 milliliter. - Medication Reconciliation Form, Thank You Letter, Antibiotic Education, Prescription Opioid Use form. - Follow up: Private Physician; When: 2 - 3 days; Reason: Re-evaluation by your physician. - Problem is new. - Symptoms have improved. Signatures: Dispatcher [employer] EDSC Huseyin Perdomo MD MD pkl Brandyn Adams RN RN rr5 Corrections: (The following items were deleted from the chart) 01:20 00:45 03/02/2019 00:45 Discharged to Home. Impression: Asthmatic bronchitis. rr5 Leukocytosis. Condition is Stable. Forms are Medication Reconciliation Form, Thank You Letter, Antibiotic Education, Prescription Opioid Use. Follow up: Private Physician; When: 2 - 3 days; Reason: Re-evaluation by your physician. Problem is new. Symptoms have improved. pkl
[2019-03-02 01:32] VITALS: O2SAT 99
[2019-03-02 01:32] LABS: Urine Blood NEGATIVE (NEG); Urine Glucose NEGATIVE (NEG); Urine Protein NEGATIVE (NEG); Urine Specific Gravity >1.030 (1.005-1.030); Urine pH 5.5 (5.0-7.0)
[2019-03-02 01:33] VITALS: BP 126/60; TEMP 97.9
--- NOTE | 2019-03-02 07:33 | EKG ---
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
--- NOTE | 2019-03-02 08:20 | RAD REPORT ---
EXAM DESCRIPTION: RAD - Chest Single View - 03/02/2019 12:10 am CLINICAL HISTORY: Chest pain;Cough Chest pain. COMPARISON: No comparisons FINDINGS: Portable technique limits examination quality. The lungs are underinflated but grossly clear. The heart is normal in size. No displaced fractures.
== END 2019-03-02 01:20 | disposition home or self-care (01) ==
LOC: ER 23:27
DX: J45.909 Unspecified asthma, uncomplicated (principal); D72.829 Elevated white blood cell count, unspecified; Z72.0 Tobacco use
CPT/HCPCS: 36415; 71045; 80048; 81003; 81025; 85025; 85379; 93005; 94640; 96361; 96374; 99285; J2930

== ENCOUNTER 2019-10-14 09:39 | Inpatient (IN) | payer SELFPAY ==
[2019-10-14] MEDS ORDERED: FENTANYL CITR 100 MCG/2 ML ONE (10:31)
[2019-10-14 10:36] LABS: Absolute Lymphocytes (CBC) 3.4 K/uL (0.7-4.9); Basophils % 0.4 % (0-1.3); Hematocrit 38.6 % (36.0-45.0); Lymphocytes % 22.6 % (15.3-44.8); MPV 9.4 fL (7.6-11.3); RBC Red Blood Cell Count 4.64 M/uL (3.86-4.86)
[2019-10-14 10:54] LABS: ALT/SGPT 22 U/L (12-78); AST/SGOT 13 U/L (15-37); Albumin 3.4 g/dL (3.4-5.0); Alkaline Phosphatase 85 U/L (45-117); BUN Blood Urea Nitrogen 15 mg/dL (7-18); Bicarbonate 25 mmol/L (21-32); Bilirubin Direct < 0.1 mg/dL (0-0.2); Bilirubin Total 0.2 mg/dL (0.2-1.0); Glucose Level 95 mg/dL (74-106); Lipase 92 U/L (73-393); Potassium 3.9 mmol/L (3.5-5.1); Protein, Total 7.4 g/dL (6.4-8.2); Sodium Level 142 mmol/L (136-145)
[2019-10-14 13:32] LABS: Urine Blood TRACE (NEG); Urine Glucose NEGATIVE (NEG); Urine Protein NEGATIVE (NEG); Urine Specific Gravity 1.025 (1.005-1.030); Urine pH 6.5 (5.0-7.0)
--- NOTE | 2019-10-14 13:49 | RAD REPORT ---
EXAM DESCRIPTION: CT - Abdomen Pelvis W Contrast - 10/14/2019 1:31 pm CLINICAL HISTORY: ABD PAIN, right upper quadrant pain, history of gallstones COMPARISON: None. TECHNIQUE: Biphasic, helical CT imaging of the abdomen and pelvis was performed following 100 ml non -ionic IV contrast. Oral contrast was given. All CT scans are performed using dose optimization technique as appropriate and may include automated exposure control or mA/KV adjustment according to patient size. FINDINGS: No suspicious findings in the lung bases. Liver is borderline to mildly fatty infiltrated. No focal liver lesions. Spleen and pancreas show no suspicious findings. Patient has at least 3 moderately large gallstones present 1 of which is positio ricarda at the neck of the gallbladder. Gallbladder wall appears slightly thickened and edematous. There is a trace amount of stranding in the pericholecystic fatty tissues. No duct stone or biliary tree di latation seen. Symmetric renal function is seen with no hydronephrosis or suspicious renal mass. No pyelonephritis o r acute parenchymal process. No bladder abnormalities. No acute adrenal finding. Uterus and ovaries s how no suspicious findings. Left ovary contains a 2.5 centimeter cyst. No cyst rupture or hemorrhage findings. No dilated bowel loops or bowel wall thickening. Appendicitis is not suspected. No acute GI process s een. No free air, free fluid or inflammatory stranding. No hernia, mass or bulky lymphadenopathy. No suspicious bony findings. IMPRESSION: Probable acute cholecystitis. Patient has several moderately large gallstones 1 of which is at the neck of the gallbladder. Gallbladder wall appears slightly thickened and edematous. Correlation can be made with clinical presentation. Sonography could be performed as clinical finding s warrant. No biliary tree dilatation. Borderline to mild fatty infiltration of the liver.
[2019-10-14] MEDS ORDERED: NA CHLORIDE 0.9% 50 ML IV ONE (14:32)
[2019-10-14] MEDS ORDERED: CEFOXITIN SODIUM 1 GM/VIAL ONE ×3 (14:32→22:40)
--- NOTE | 2019-10-14 16:07 | ER ---
Nurse's Notes [facility] Name: Vira Silva Age: 24 yrs Sex: Female : 1995 Arrival Date: 10/14/2019 Time: 09:40 Bed 24 Private MD: Diagnosis: Acute cholecystitis Presentation: 10/14 09:59 Presenting complaint: Patient states: RUQ pain that began today at 0900. Denies aa5 nausea/vomiting. Pt states "I know it's my gallbladder". Transition of care: patient was not received from another setting of care. Onset of symptoms was October 14, 2019. Risk Assessment: Do you want to hurt yourself or someone else? Patient reports no desire to harm self or others. Initial Sepsis Screen: Does the patient meet any 2 criteria? No. Patient's initial sepsis screen is negative. Does the patient have a suspected source of infection? No. Patient's initial sepsis screen is negative. Care prior to arrival: None. 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 - Social history:: Smoking status: Patient uses tobacco products, smokes one-half pack cigarettes per day. - Ebola Screening: : No symptoms or risks identified at this time. Screenin:18 Abuse screen: Denies threats or abuse. Denies injuries from another. Nutritional wh screening: No deficits noted. Tuberculosis screening: No symptoms or risk factors identified. Fall Risk None identified. Assessment: 10:20 General: Appears in no apparent distress. Behavior is calm, cooperative, appropriate wh for age. Pain: Complains of pain in right upper quadrant Pain does not radiate. Pain currently is 8 out of 10 on a pain scale. Quality of pain is described as burning, Pain began 2 hours ago. Neuro: Level of Consciousness is awake, alert, obeys commands, Oriented to person, place, time, situation, Appropriate for age. Cardiovascular: Heart tones S1 S2. Respiratory: Airway is patent Respiratory effort is even, unlabored, Respiratory pattern is regular, symmetrical. Respiratory: Breath sounds are clear bilaterally. GI: Abdomen is flat, non-distended, Bowel sounds present X 4 quads. Abd is soft Abdomen is tender to palpation in right upper quadrant. : No signs and/or symptoms were reported regarding the genitourinary system. EENT: No signs and/or symptoms were reported regarding the EENT system. Derm: Skin is intact, is healthy with good turgor, Skin is pink, warm \\T\\ dry. normal. Musculoskeletal: Circulation, motion, and sensation intact. 11:41 Reassessment: Patient appears in no apparent distress at this time. No changes from previously documented assessment. Patient and/or family updated on plan of care and expected duration. Pain level reassessed. Patient is alert, oriented x 3, equal unlabored respirations, skin warm/dry/pink. 13:08 Reassessment: Patient appears in no apparent distress at this time. No changes from previously documented assessment. Patient and/or family updated on plan of care and expected duration. Pain level reassessed. Patient is alert, oriented x 3, equal unlabored respirations, skin warm/dry/pink. Patient states feeling better. Patient states symptoms have improved. 13:36 Reassessment: Pt back from CT scan. 14:38 Reassessment: Patient appears in no apparent distress at this time. No changes from previously documented assessment. Patient and/or family updated on plan of care and expected duration. Pain level reassessed. Patient is alert, oriented x 3, equal unlabored respirations, skin warm/dry/pink. Patient denies pain at this time. 16:01 Reassessment: Patient appears in no apparent distress at this time. No changes from previously documented assessment. Patient and/or family updated on plan of care and expected duration. Pain level reassessed. Patient is alert, oriented x 3, equal unlabored respirations, skin warm/dry/pink. FF up with provider regarding POC Patient denies pain at this time. 16:10 Reassessment: Provider at bedside explaining POC need for admit. Vital Signs: 10:00 BP 106 / 71; Pulse 95; Resp 18 S; Temp 98.6(O); Pulse Ox 99% on R/A; Weight 99.79 kg aa5 (R); Height 5 ft. 1 in. (154.94 cm) (R); Pain 10/10; 11:42 BP 100 / 66; Pulse 75; Resp 18; Pulse Ox 98% on R/A; wh 13:09 BP 94 / 65; Pulse 77; Resp 16; Pulse Ox 100% ; wh 14:37 BP 104 / 57; Pulse 78; Resp 18; Pulse Ox 100% ; wh 16:02 BP 124 / 84; Pulse 81; Resp 18; Pulse Ox 99% ; wh 10:00 Body Mass Index 41.57 (99.79 kg, 154.94 cm) aa5 ED Course: 09:40 Patient arrived in ED. am2 09:46 Gladys Garza FNP-C is PHCP. snw 09:46 Sree Armando MD is Attending Physician. snw 10:00 Triage completed. aa5 10:00 Arm band placed on. aa5 10:05 Day Rasmussen is Primary Nurse. 10:30 Inserted saline lock: 20 gauge in right antecubital area, using aseptic technique. Blood collected. 11:01 Patient has correct armband on for positive identification. Placed in gown. Bed in low wh position. Call light in reach. Side rails up X 1. Pulse ox on. NIBP on. 16:06 Kam Mares MD is Hospitalizing Provider. snw 17:11 No provider procedures requiring assistance completed. Patient admitted, IV remains in place. Administered Medications: 10:32 Drug: fentaNYL (PF) 25 mcg {Note: RASS 0.} Route: IVP; Site: right antecubital; 11:42 Follow up: Response: No adverse reaction; Pain is decreased; RASS: Alert and Calm (0) 14:31 Drug: Mefoxin 1 grams Route: IVPB; Infused Over: 30 mins; Site: right antecubital; 17:12 Follow up: Response: No adverse reaction; IV Status: Completed infusion Outcome: 16:06 Decision to Hospitalize by Provider. snw 17:11 Admitted to Med/surg accompanied by tech, family with patient, via wheelchair, room wh 208, with chart, Report called to Ankit Moy RN 17:11 Condition: stable 17:11 Instructed on the need for admit. 17:13 Patient left the ED. Signatures: Gladys Garza FNP-C PUMP SERVICE SUPERVISOR-Csnw Yeni Frederick RN RN aa5 Rylie Dickinson am2 Day Rasmussen Corrections: (The following items were deleted from the chart) 10:02 10:00 Pulse 95bpm; Resp 18bpm; Spontaneous; Pulse Ox 99% RA; Temp 98.6F Oral; 99.79 kg aa5 Reported; Height 5 ft. 1 in. Reported; BMI: 41.5; Pain 08/25; aa5
--- NOTE | 2019-10-14 16:08 | EDPHYS ---
Physician Documentation [facility] Name: Vira Silva Age: 24 yrs Sex: Female : 1995 Arrival Date: 10/14/2019 Time: 09:40 Bed 24 Private MD: ED Physician Sree Armando HPI: 10/14 10:35 This 24 yrs old Female presents to ER via Ambulatory with complaints of snw gallbladder pain. 10:35 Onset: The symptoms/episode began/occurred suddenly, at 09:00. Associated signs and snw symptoms: Pertinent positives: nausea. The patient has experienced similar episodes in the past. The patient has not recently seen a physician. known cholelithiasis. 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 - Social history:: Smoking status: Patient uses tobacco products, smokes one-half pack cigarettes per day. - Ebola Screening: : No symptoms or risks identified at this time. ROS: 10:35 Constitutional: Negative for fever, chills, and weight loss, Eyes: Negative for injury, snw pain, redness, and discharge, ENT: Negative for injury, pain, and discharge, Neck: Negative for injury, pain, and swelling, Cardiovascular: Negative for chest pain, palpitations, and edema, Respiratory: Negative for shortness of breath, cough, wheezing, and pleuritic chest pain, : Negative for injury, bleeding, discharge, and swelling, MS/Extremity: Negative for injury and deformity, Skin: Negative for injury, rash, and discoloration, Neuro: Negative for headache, weakness, numbness, tingling, and seizure, Psych: Negative for depression, anxiety, suicide ideation, homicidal ideation, and hallucinations. 10:35 Abdomen/GI: Positive for abdominal pain. 10:35 Back: Positive for radiated pain. Exam: 10:32 Constitutional: This is a well developed, well nourished patient who is awake, alert, snw and in no acute distress. Head/Face: Normocephalic, atraumatic. Eyes: Pupils equal round and reactive to light, extra-ocular motions intact. Lids and lashes normal. Conjunctiva and sclera are non-icteric and not injected. Cornea within normal limits. Periorbital areas with no swelling, redness, or edema. ENT: Nares patent. No nasal discharge, no septal abnormalities noted. Tympanic membranes are normal and external auditory canals are clear. Oropharynx with no redness, swelling, or masses, exudates, or evidence of obstruction, uvula midline. Mucous membranes moist. Neck: Trachea midline, no thyromegaly or masses palpated, and no cervical lymphadenopathy. Supple, full range of motion without nuchal rigidity, or vertebral point tenderness. No Meningismus. Chest/axilla: Normal chest wall appearance and motion. Nontender with no deformity. No lesions are appreciated. Cardiovascular: Regular rate and rhythm with a normal S1 and S2. No gallops, murmurs, or rubs. Normal PMI, no JVD. No pulse deficits. Respiratory: Lungs have equal breath sounds bilaterally, clear to auscultation and percussion. No rales, rhonchi or wheezes noted. No increased work of breathing, no retractions or nasal flaring. Back: No spinal tenderness. No costovertebral tenderness. Full range of motion. Skin: Warm, dry with normal turgor. Normal color with no rashes, no lesions, and no evidence of cellulitis. MS/ Extremity: Pulses equal, no cyanosis. Neurovascular intact. Full, normal range of motion. Neuro: Awake and alert, GCS 15, oriented to person, place, time, and situation. Cranial nerves II-XII grossly intact. Motor strength 5/5 in all extremities. Sensory grossly intact. Cerebellar exam normal. Normal gait. Psych: Awake, alert, with orientation to person, place and time. Behavior, mood, and affect are within normal limits. 10:32 Abdomen/GI: Inspection: obese Bowel sounds: normal, Palpation: moderate abdominal tenderness, severe abdominal tenderness, in the right upper quadrant, Indicators: Sherman's sign is positive. Vital Signs: 10:00 BP 106 / 71; Pulse 95; Resp 18 S; Temp 98.6(O); Pulse Ox 99% on R/A; Weight 99.79 kg aa5 (R); Height 5 ft. 1 in. (154.94 cm) (R); Pain 10/10; 11:42 BP 100 / 66; Pulse 75; Resp 18; Pulse Ox 98% on R/A; wh 13:09 BP 94 / 65; Pulse 77; Resp 16; Pulse Ox 100% ; wh 14:37 BP 104 / 57; Pulse 78; Resp 18; Pulse Ox 100% ; wh 16:02 BP 124 / 84; Pulse 81; Resp 18; Pulse Ox 99% ; wh 10:00 Body Mass Index 41.57 (99.79 kg, 154.94 cm) aa5 MDM: 10:08 Patient medically screened. snw 15:28 Data reviewed: vital signs, nurses notes, lab test result(s), radiologic studies, CT snw scan. Data interpreted: Pulse oximetry: on room air is 100 %. Interpretation: normal. Counseling: I had a detailed discussion with the patient and/or guardian regarding: the historical points, exam findings, and any diagnostic results supporting the discharge/admit diagnosis, lab results, radiology results. Physician consultation: Sree Armando MD was called at 14:30, was contacted at 14:30, regarding consult, report to Dr. Mares. 16:04 Counseling: I had a detailed discussion with the patient and/or guardian regarding: snw admit to Dr. Mares, clear liquids until midnight and then NPO, abx, pain meds, nausea meds. 10/14 10:12 Order name: Basic Metabolic Panel [facility] 10/14 10:12 Order name: CBC with Diff [facility] 10/14 10:12 Order name: Creatinine for Radiology [facility] 10/14 10:12 Order name: Hepatic Function [facility] 10/14 10:12 Order name: Lipase [facility] 10/14 10:12 Order name: Urine Culture [facility] 10/14 10:12 Order name: Urine Microscopic Only [facility] 10/14 10:37 Order name: CBC with Automated Diff; Complete Time: 10:38 EDMS 10/14 10:53 Order name: Creatinine (Radiology Only); Complete Time: 10:53 EDMI 10/14 10:55 Order name: Basic Metabolic Panel; Complete Time: 10:55 EDMS 10/14 10:55 Order name: Liver (Hepatic) Function; Complete Time: 10:55 EDMS 10/14 10:55 Order name: Lipase; Complete Time: 10:55 EDMS 10/14 11:31 Order name: Urine Dipstick--Ancillary (enter results) 10/14 11:31 Order name: Urine --Ancillary (enter results) 10/14 10:12 Order name: IV Saline Lock; Complete Time: 10:31 snw 10/14 10:12 Order name: Labs collected and sent; Complete Time: 10:31 snw 10/14 10:12 Order name: Urine Test (obtain specimen); Complete Time: 11:30 snw 10/14 10:12 Order name: Urine Dipstick-Ancillary (obtain specimen); Complete Time: 11:30 snw 10/14 12:36 Order name: CT Abd/Pelvis - IV Contrast Only snw 10/14 13:32 Order name: Urine --Ancillary; Complete Time: 13:33 EDMS 10/14 13:32 Order name: Urine Dipstick-Ancillary; Complete Time: 13:33 EDMS 10/14 13:50 Order name: CT; Complete Time: 13:52 EDMI 10/14 16:08 Order name: Diet Clear Liquid; Complete Time: 16:08 snw Administered Medications: 10:32 Drug: fentaNYL (PF) 25 mcg {Note: RASS 0.} Route: IVP; Site: right antecubital; 11:42 Follow up: Response: No adverse reaction; Pain is decreased; RASS: Alert and Calm (0) 14:31 Drug: Mefoxin 1 grams Route: IVPB; Infused Over: 30 mins; Site: right antecubital; 17:12 Follow up: Response: No adverse reaction; IV Status: Completed infusion Disposition: 10/14/19 16:06 Hospitalization ordered by Kam Mares for Inpatient Admission. Preliminary diagnosis is Acute cholecystitis. - Bed requested for Telemetry/MedSurg (Inpatient). - Status is Inpatient Admission. - Condition is Stable. - Problem is an acute exacerbation. - Symptoms are unchanged. UTI on Admission? No Addendum: 10/17/2019 10:13 Co-signature as Attending Physician, Sree Armando MD I agree with the assessment and k dr plan of care. Signatures: Dispatcher [employer] Sree Rivera MD MD kdr Therrien, Shelly, MUSIC ENGRAVER-C MUSIC ENGRAVER-Csnw Yeni Frederick RN RN aa5 Day Rasmussen Ragini Braun Corrections: (The following items were deleted from the chart) 10/14 16:20 16:06 Hospitalization Ordered by Kam Mares MD for Inpatient Admission. Preliminary eb diagnosis is Acute cholecystitis. Bed requested for Telemetry/MedSurg (Inpatient). Status is Inpatient Admission. Condition is Stable. Problem is an acute exacerbation. Symptoms are unchanged. UTI on Admission? No. snw 16:51 16:20 10/14/2019 16:06 Hospitalization Ordered by Kam Mares MD for Inpatient eb Admission. Preliminary diagnosis is Acute cholecystitis. Bed requested for Telemetry/MedSurg (Inpatient). Status is Inpatient Admission. Condition is Stable. Problem is an acute exacerbation. Symptoms are unchanged. UTI on Admission? No. eb 17:13 16:51 10/14/2019 16:06 Hospitalization Ordered by Kam Mares MD for Inpatient Admission. Preliminary diagnosis is Acute cholecystitis. Bed requested for Telemetry/MedSurg (Inpatient). Status is Inpatient Admission. Condition is Stable. Problem is an acute exacerbation. Symptoms are unchanged. UTI on Admission? No. eb
[2019-10-14] MEDS ORDERED: MORPHINE 4 MG/ML SYR IV PRN (17:18)
[2019-10-14] MEDS ORDERED: ONDANSETRON 4 MG/2 ML VIAL IV PRN (17:18)
[2019-10-14] MEDS ORDERED: ACETAMINOPHEN 500 MG TAB PO PRN (17:18)
[2019-10-14 17:30] VITALS: BMI 41.3
[2019-10-14] MEDS: CEFOXITIN SODIUM 1 GM/VIAL IVPB SCH ×2 (18:00→23:30)
[2019-10-14] MEDS: D5 0.45 NS 1,000 ML IV SCH (18:01)
[2019-10-14] MEDS ORDERED: CEFOXITIN/SWI 1gm 1 GM/10 ML SYR ONE (18:41)
[2019-10-15] MEDS: D5 0.45 NS 1,000 ML IV SCH ×4 (02:02→21:29)
[2019-10-15] MEDS: CEFOXITIN SODIUM 1 GM/VIAL IVPB SCH (05:13)
[2019-10-15 05:51] LABS: Absolute Lymphocytes (CBC) 3.9 K/uL (0.7-4.9); Basophils % 0.5 % (0-1.3); Hematocrit 36.5 % (36.0-45.0); Lymphocytes % 27.9 % (15.3-44.8); MPV 9.8 fL (7.6-11.3); RBC Red Blood Cell Count 4.34 M/uL (3.86-4.86)
[2019-10-15 05:57] LABS: BUN Blood Urea Nitrogen 7 mg/dL (7-18); Bicarbonate 27 mmol/L (21-32); Glucose Level 81 mg/dL (74-106); Potassium 3.2 mmol/L (3.5-5.1); Sodium Level 138 mmol/L (136-145)
[2019-10-15] MEDS ORDERED: BUPIVACAINE 0.5% PF 10 ML VIAL ONE (08:54)
[2019-10-15] MEDS ORDERED: Ringers Lactate 1,000 ML IV ONE (09:36)
[2019-10-15] MEDS ORDERED: SUCCINYLCHOLINE 20 MG/ML (10 ML) IV ONE (09:55)
[2019-10-15] MEDS ORDERED: FENTANYL CITR 100 MCG/2 ML ONE ×3 (09:58→11:09)
[2019-10-15] MEDS ORDERED: ROCURONIUM 50 MG/5 ML VIAL IV ONE (09:58)
[2019-10-15] MEDS ORDERED: MIDAZOLAM HCL 2 MG/2 ML INJ ONE (09:58)
[2019-10-15] MEDS ORDERED: PROPOFOL 200 MG/20 ML VIAL IV ONE (09:58)
[2019-10-15] MEDS ORDERED: NEOSTIGMINE 1 MG/ML -10 ML VIAL ONE (10:53)
[2019-10-15] MEDS ORDERED: GLYCOPYRROLATE 0.2 MG/ML SYR ONE (10:54)
--- NOTE | 2019-10-15 11:01 | P.OP ---
Car Wash Attendant Automatic: Loren HUNTER Preoperative diagnosis: Acute Cholecystitis and Cholelithiasis Postoperative diagnosis: same Primary procedure: Lap Gilda Anesthesia: General Estimated blood loss: min Specimen: gb Findings: as above Complications: None Transferred to: Recovery Room Condition: Good
[2019-10-15] MEDS ORDERED: ONDANSETRON 4 MG/2 ML VIAL IV PRN (11:03)
[2019-10-15] MEDS ORDERED: KETOROLAC 30 MG/ML INJ ONE (11:13)
[2019-10-15] MEDS: MORPHINE 4 MG/ML SYR ONE ×2 (11:23→11:28)
[2019-10-15] MEDS: MEPERIDINE HCL 25 MG/0.5 ML ONE ×2 (11:35→11:40)
[2019-10-15] MEDS ORDERED: PROMETHAZINE 25 MG/ML VIAL ONE (11:47)
--- NOTE | 2019-10-15 12:30 | PREOPHP ---
Date of Admission: 10/14/2019 Chief Complaint: Abdominal pain. History Of Present Illness: The patient is a 24-year-old female, who has had recurrent episodes of b iliary colic over the last year to 2, came to the emergency room with acute onset of epigastric right upper quadrant pain associated with nausea, vomiting, bloating, belching, and heartburn. No diarrhe a or constipation. No blood in her stool. No dysuria or hematuria. No sore throat, runny nose, cou gh, headaches, or dizziness. No chest pain. Review of Systems: Otherwise unremarkable. Past Medical History: Negative. Past Surgical History: Ankle surgery. Allergies: NO ALLERGIES. Social History: Patient does smoke and drink, has been counseled. Family History: Significant for heart disease and diabetes. Physical Examination: Vital Signs: Stable. She is afebrile. General: She is awake, alert, and oriented x3. Head and Neck: Cranial nerves 2 through 12 are grossly within normal limits. No neck masses. No JV D. Throat clear. Neck supple. Chest: Clear. Heart: S1, S2. Abdomen: Soft, nondistended. Positive bowel sounds. Positive right upper quadrant tenderness with minimal rebound. No rigidity or guarding. Extremities: Adequately perfused. Nontender. Neuro: Nonfocal. Diagnostic Data: CT of the abdomen and pelvis reviewed, shows probable acute cholecystitis, several moderately large gallstones, one of which is at the neck of the gallbladder. Gallbladder wall appear s slightly thickened and edematous. Laboratory Data: Reviewed. Her white count on admission was 15,000; today is 14,000. LFTs were nor mal on admission. Lipase was normal. Assessment: Acute cholecystitis and cholelithiasis. Plan: Admit n.p.o., IV fluid, IV antibiotic, to the OR for lap shira, possible open. Patient unders tands the risks, benefits, and alternatives, and agrees to procedure. PEE/SHAYY Voice ID: [id number]
[2019-10-15] MEDS: HYDROMORPHONE HCL 1 MG/ML INJ IV PRN ×2 (13:32→21:30)
[2019-10-15] MEDS: CEFOXITIN/SWI 1gm 1 GM/10 ML SYR IVP SCH ×3 (13:34→23:26)
[2019-10-15] MEDS ORDERED: POTASSIUM 25 MEQ EFFERV TAB PO ONE (17:00)
[2019-10-15] MEDS: HYDROCODONE/APAP 7.5/325 MG TAB PO PRN (17:15)
--- NOTE | 2019-10-15 22:02 | OP ---
Date of Procedure: 10/15/2019 Surgeon: Kam Mares MD Program Management Specialist: DALE Natarajan Preoperative Diagnosis: Acute cholecystitis and cholelithiasis. Postoperative Diagnosis: Acute cholecystitis and cholelithiasis. Procedure: Laparoscopic cholecystectomy. Estimated Blood Loss: Minimal. Specimen: Gallbladder. Findings: As above. Anesthesia: General. Complications: None. Disposition: The patient tolerated the procedure in stable condition, taken to Recovery in good gene ral condition. Procedure In Detail: Patient was brought to the OR and placed in supine position. General anesthesi a was begun. Patient was prepped and draped in usual sterile fashion. Marcaine 0.5% was infiltrated locally. A 15-blade was used to make a 1 cm infraumbilical midline incision. Subcutaneous tissue d ivided. The fascia was identified and divided. A #1 Vicryl stay suture was placed. Peritoneal cavi ty was entered with a sharp and blunt dissection. A 12 mm trocar was placed into the peritoneal cavi ty under direct vision. Pneumoperitoneum was established and then three 5 mm trocars were placed, 1 in the epigastrium to just right of midline and 2 in the right subcostal region. Laparoscopy reveale d inflamed gallbladder. Fundus retracted superiorly. Infundibulum was identified and retracted infe rolaterally. Cystic duct and cystic artery were clearly identified with blunt dissection. Clips mendoza margaret. Both structures were divided. Cautery was used to remove the gallbladder from the liver bed. Bleeding on the liver bed was controlled with cautery. The gallbladder was retrieved through the umb ilicus via an EndoCatch bag. Right upper quadrant was irrigated. Effluent was clear. No evidence o f bleeding or bile leakage appreciated. Subsequently, all trocars were removed under direct vision. Stay sutures were tied to each other to reapproximate the fascial defect. Subcutaneous wounds were irrigated. Bleeding controlled with cautery. A 3-0 chromic used for subcutaneous tissue and christina were used to close the skin. Sterile dressing was applied. Patient was awakened and taken to [facility] in good general condition. /MODL Voice ID: [id number] Report ID: [id number]
[2019-10-15 23:53] LABS: Potassium 3.9 mmol/L (3.5-5.1)
[2019-10-16] MEDS: D5 0.45 NS 1,000 ML IV SCH ×3 (00:30→08:25)
[2019-10-16] MEDS: HYDROCODONE/APAP 7.5/325 MG TAB PO PRN ×2 (00:46→08:23)
[2019-10-16] MEDS: HYDROMORPHONE HCL 1 MG/ML INJ IV PRN ×2 (02:08→05:05)
[2019-10-16] MEDS: CEFOXITIN/SWI 1gm 1 GM/10 ML SYR IVP SCH (05:05)
[2019-10-16 06:55] LABS: Phosphorus 3.1 mg/dL (2.5-4.9); Potassium 3.8 mmol/L (3.5-5.1)
[2019-10-16] MEDS ORDERED: POTASSIUM CL SA 10 MEQ TAB PO ONE ×2 (06:58→09:00)
[2019-10-16 09:15] VITALS: O2SAT 98
[2019-10-16 10:53] VITALS: BP 122/78; TEMP 98
--- NOTE | 2019-10-17 06:07 | DS ---
Date of Discharge: 10/16/2019 Admitting Diagnosis: Acute cholecystitis and cholelithiasis. Discharge Diagnosis: Acute cholecystitis and cholelithiasis. Procedure Performed: Laparoscopic cholecystectomy. Hospital Course: Patient is a 24-year-old female who underwent a laparoscopic cholecystectomy yester day. Postoperatively, she is tolerating that, ambulating, pain controlled on p.o. pain medication, a febrile. Therefore, patient will be discharged to home. Disposition: Home. Condition: Stable. Discharge Instructions: Resume home medications and diet. Activity as tolerated. No heavy lifting. Remove outer dressing in 2 days. Shower. Keep wound clean and dry. Follow up in my office in 1 w [place]. Call for appointment. Tylenol No. 3 one tablet p.o. q.4 p.r.n. pain. /MODL Voice ID: [id number] Report ID: [id number]
== END 2019-10-16 11:03 | disposition home or self-care (01) | DRG 419 ==
LOC: ER 09:39 → ERHOLD 16:19 → 2ND 17:08
PROVIDERS: ADMIT Surgery; ATTEND Surgery
PROC: 0FT44ZZ Resection of Gallbladder, Percutaneous Endoscopic Approach (ICD-10-PCS; principal; 2019-10-15 09:00)
DX: K80.00 Calculus of gallbladder with acute cholecystitis without obstruction (principal); F17.210 Nicotine dependence, cigarettes, uncomplicated
CPT/HCPCS: 36415; 74177; 80048; 80076; 81003; 81025; 83690; 83735; 84100; 84132; 85025; 88304; 96365; 96366; 96375; 99285; J0330; J0694; J1170; J2175; J2250; J2550; J2704; J2710; J3010; J7120; J7799; Q9967

== ENCOUNTER 2020-05-11 04:37 | Emergency (ER) | payer OTHER, SELFPAY ==
[2020-05-11 05:04] LABS: Urine Blood 2+ (NEG); Urine Glucose NEGATIVE (NEG); Urine Protein NEGATIVE (NEG); Urine Specific Gravity >1.030 (1.005-1.030)
[2020-05-11 05:37] LABS: Urine Bacteria >50 /HPF (<20); Urine Culture Reflex Order REFLEXED; Urine Mucus 1+ /HPF (NONE SEEN); Urine RBC 20-50 /HPF (NONE SEEN)
--- NOTE | 2020-05-11 05:54 | ER ---
Nurse's Notes 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 Coronavirus screen: Proceed with normal triage. Ebola Screen: No symptoms or risks identified at this time. Initial Sepsis Screen: Does the patient meet any 2 criteria? No. Patient's initial sepsis screen is negative. Does the patient have a suspected source of infection? No. Patient's initial sepsis screen is negative. Risk Assessment: Do you want to hurt yourself or someone else? Patient reports no desire to harm self or others. Onset of symptoms was May 11, 2020. 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 - Social history:: Smoking status: Patient reports the use of cigarette tobacco products, smokes two packs cigarettes per day. Screenin:50 Abuse screen: Denies threats or abuse. Denies injuries from another. Nutritional lp1 screening: No deficits noted. Tuberculosis screening: No symptoms or risk factors identified. Fall Risk None identified. Assessment: 05:13 General: Appears comfortable, Behavior is calm, cooperative. Pain: Complains of pain in rv abdomen. Neuro: Level of Consciousness is awake, alert, obeys commands, Oriented to person, place, time, situation. Cardiovascular: Patient's skin is warm and dry. Respiratory: Airway is patent. GI: Abdomen is round non-distended, Reports lower abdominal pain. : Urine is clear, Reports vaginal bleeding that is heavy flow. Derm: Skin is intact. Vital Signs: 04:48 BP 117 / 71; Pulse 100; Resp 18; Temp 98.6; Pulse Ox 100% on R/A; Weight 97.52 kg (R); lp1 Height 5 ft. 1 in. (154.94 cm); 06:11 BP 101 / 78; Pulse 91; Resp 17; Temp 98.5(O); Pulse Ox 99% ; rv 04:48 Body Mass Index 40.62 (97.52 kg, 154.94 cm) lp1 ED Course: 04:39 Patient arrived in ED. cl3 04:40 Jack Loza, RN is Primary Nurse. rv 04:42 Steve Wasserman MD is Attending Physician. tw4 04:50 Triage completed. lp1 04:50 Arm band placed on. lp1 04:51 Patient has correct armband on for positive identification. lp1 04:55 Inserted saline lock: 20 gauge in right antecubital area, using aseptic technique. rv Blood collected. 04:55 Initial lab(s) drawn, by ok, sent to lab. rv 06:11 No provider procedures requiring assistance completed. IV discontinued, intact, rv bleeding controlled, No redness/swelling at site. Pressure dressing applied. Administered Medications: No medications were administered Outcome: 05:54 Discharge ordered by . tw4 06:11 Discharged to home ambulatory. rv 06:11 Condition: good 06:11 Discharge instructions given to patient, Instructed on discharge instructions, follow up and referral plans. Demonstrated understanding of instructions, follow-up care. 06:12 Patient left the ED. rv Signatures: Una Lizarraga RN RN lp1 Steve Wasserman MD MD tw4 Jack Loza, SCOTTIE RN rv Ellyn Griffith cl3 Corrections: (The following items were deleted from the chart) 05:05 04:51 LMP 03/16/2020, Verified, EDC 12/21/2020, Gestational age from LMP: 8 weeks lp1 0 days lp1
--- NOTE | 2020-05-11 05:55 | EDPHYS ---
Physician Documentation [facility] Name: Vira Silva Age: 24 yrs Sex: Female : 1995 Arrival Date: 05/11/2020 Time: 04:39 Bed 5 Private MD: ED Physician Steve Wasserman HPI: 05/11 05:52 This 24 yrs old Female presents to ER via Ambulatory with complaints of tw4 Vaginal Bleeding. 05:52 The patient presents with vaginal bleeding that is. Onset: The symptoms/episode tw4 began/occurred 4 hour(s) ago. Modifying factors: The symptoms are alleviated by nothing, the symptoms are aggravated by nothing. Associated signs and symptoms: Pertinent positives: cramping. The patient has not experienced similar symptoms in the past. 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 - Social history:: Smoking status: Patient reports the use of cigarette tobacco products, smokes two packs cigarettes per day. ROS: 05:52 Constitutional: Negative for fever, chills, and weight loss, Eyes: Negative for injury, tw4 pain, redness, and discharge, Cardiovascular: Negative for chest pain, palpitations, and edema, Respiratory: Negative for shortness of breath, cough, wheezing, and pleuritic chest pain, Abdomen/GI: Negative for abdominal pain, nausea, vomiting, diarrhea, and constipation, Back: Negative for injury and pain. 05:52 MS/Extremity: Negative for injury and deformity, Skin: Negative for injury, rash, and discoloration, Neuro: Negative for headache, weakness, numbness, tingling, and seizure. 05:52 : Positive for vaginal bleeding. Exam: 05:52 Constitutional: This is a well developed, well nourished patient who is awake, alert, tw4 and in no acute distress. Head/Face: Normocephalic, atraumatic. Chest/axilla: Normal chest wall appearance and motion. Nontender with no deformity. No lesions are appreciated. Cardiovascular: Regular rate and rhythm with a normal S1 and S2. No gallops, murmurs, or rubs. Normal PMI, no JVD. No pulse deficits. Respiratory: Lungs have equal breath sounds bilaterally, clear to auscultation and percussion. No rales, rhonchi or wheezes noted. No increased work of breathing, no retractions or nasal flaring. Abdomen/GI: Soft, non-tender, with normal bowel sounds. No distension or tympany. No guarding or rebound. No evidence of tenderness throughout. MS/ Extremity: Pulses equal, no cyanosis. Neurovascular intact. Full, normal range of motion. Neuro: Awake and alert, GCS 15, oriented to person, place, time, and situation. Cranial nerves II-XII grossly intact. Motor strength 5/5 in all extremities. Sensory grossly intact. Cerebellar exam normal. Normal gait. Vital Signs: 04:48 BP 117 / 71; Pulse 100; Resp 18; Temp 98.6; Pulse Ox 100% on R/A; Weight 97.52 kg (R); lp1 Height 5 ft. 1 in. (154.94 cm); 06:11 BP 101 / 78; Pulse 91; Resp 17; Temp 98.5(O); Pulse Ox 99% ; rv 04:48 Body Mass Index 40.62 (97.52 kg, 154.94 cm) lp1 MDM: 04:42 Patient medically screened. 05/11 05:01 Order name: Urine Dipstick--Ancillary (enter results) ok 05/11 05:01 Order name: Urine --Ancillary (enter results) ok 05/11 04:45 Order name: Urine Test (obtain specimen); Complete Time: 05:03 05/11 04:45 Order name: IV Saline Lock; Complete Time: 05:12 05/11 04:45 Order name: Labs collected and sent; Complete Time: 05:12 05/11 04:45 Order name: NPO; Complete Time: 05:13 05/11 04:45 Order name: Urine Dipstick-Ancillary (obtain specimen); Complete Time: 05:01 [facility] 05/11 05:05 Order name: Urine Microscopic Only [facility] 05/11 05:39 Order name: Urine Culture EDMS Administered Medications: No medications were administered Disposition: 05/11/20 05:54 Discharged to Home. Impression: Dysmenorrhea, unspecified. - Condition is Stable. - Discharge Instructions: Dysmenorrhea, Menorrhagia. - Medication Reconciliation Form, Thank You Letter, Antibiotic Education, Prescription Opioid Use form. - Follow up: Private Physician; When: Upon discharge from the Emergency Department; Reason: Recheck today's complaints, Continuance of care, Re-evaluation by your physician. - Problem is new. - Symptoms have improved. Signatures: Dispatcher [employer] EDAK Una Lizarraga, RN RN lp1 Steve Wasserman MD MD tw4 Jack Loza RN RN rv Corrections: (The following items were deleted from the chart) 04:51 04:45 Urine Dipstick-Ancillary ordered. tw4 lp1 05:04 04:45 QUANTITATIVE HCG+C.LAB.BRZ ordered. EDAK EDAK 05:04 04:45 ABO/RH TYPING+BB.LAB.BRZ ordered. EDAK EDAK 05:04 04:45 BASIC METABOLIC PANEL+C.LAB.BRZ ordered. EDAK EDMS 05:04 04:45 CBC+H.LAB.BRZ ordered. EDAK EDMS 05:38 05:05 URINALYSIS+U.LAB.BRZ ordered. [facility] EDAK 06:12 05:54 05/11/2020 05:54 Discharged to Home. Impression: Dysmenorrhea, unspecified. rv Condition is Stable. Forms are Medication Reconciliation Form, Thank You Letter, Antibiotic Education, Prescription Opioid Use. Follow up: Private Physician; When: Upon discharge from the Emergency Department; Reason: Recheck today's complaints, Continuance of care, Re-evaluation by your physician. Problem is new. Symptoms have improved. tw4
[2020-05-11 06:26] VITALS: BP 101/78; TEMP 98.5; O2SAT 99
== END 2020-05-11 06:12 | disposition home or self-care (01) ==
LOC: ER 04:37
DX: N94.6 Dysmenorrhea, unspecified (principal); F17.210 Nicotine dependence, cigarettes, uncomplicated
CPT/HCPCS: 81003; 81015; 81025; 87086; 87088; 99283

== ENCOUNTER 2020-08-02 12:43 | Emergency (ER) | payer OTHER, SELFPAY ==
[2020-08-02 14:29] LABS: Absolute Lymphocytes (CBC) 3.1 K/uL (0.7-4.9); Basophils % 0.5 % (0-1.3); Lymphocytes % 20.1 % (15.3-44.8); MPV 10.1 fL (7.6-11.3); RBC Red Blood Cell Count 4.59 M/uL (3.86-4.86)
[2020-08-02 14:46] LABS: BUN Blood Urea Nitrogen 15 mg/dL (7-18); Bicarbonate 26 mmol/L (21-32); Glucose Level 84 mg/dL (74-106); HCG, Quantitative 388 mIU/mL (1-3); Sodium Level 140 mmol/L (136-145)
[2020-08-02 15:28] LABS: Urine Blood NEGATIVE (NEG); Urine Glucose NEGATIVE (NEG); Urine Protein NEGATIVE (NEG); Urine Specific Gravity >1.030 (1.005-1.030)
--- NOTE | 2020-08-02 15:48 | ER ---
Nurse's Notes [facility] Name: Vira Silva Age: 24 yrs Sex: Female : 1995 Arrival Date: 08/02/2020 Time: 12:47 Bed 24 Private MD: Diagnosis: state;Lower abdominal pain, unspecified Presentation: 08/02 12:56 Chief complaint: Patient states: c/o adrian. lower abd pain that started today, described em as cramping, took a test and is 4 weeks , denies vaginal bleeding, N/V. Coronavirus screen: Client denies travel out of the [place] in the last 14 days. Ebola Screen: Patient negative for fever greater than or equal to 101.5 degrees Fahrenheit, and additional compatible Ebola Virus Disease symptoms Patient denies exposure to infectious person. Patient denies travel to an Ebola-affected area in the 21 days before illness onset. No symptoms or risks identified at this time. Initial Sepsis Screen: Does the patient meet any 2 criteria? No. Patient's initial sepsis screen is negative. Does the patient have a suspected source of infection? No. Patient's initial sepsis screen is negative. Risk Assessment: Do you want to hurt yourself or someone else? Patient reports no desire to harm self or others. Onset of symptoms was August 02, 2020. 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 - Social history:: Smoking status: Patient denies any tobacco usage or history of. Screenin:14 Abuse screen: Denies threats or abuse. Nutritional screening: No deficits noted. tw2 Tuberculosis screening: No symptoms or risk factors identified. Fall Risk None identified. Assessment: 14:20 General: Appears in no apparent distress. slender, well groomed, Behavior is calm, tw2 cooperative, appropriate for age. Pain: Denies pain. Neuro: Level of Consciousness is awake, alert, obeys commands, Oriented to person, place, time, situation. Cardiovascular: Heart tones S1 S2 Patient's skin is warm and dry. Respiratory: Airway is patent Respiratory effort is even, unlabored, Respiratory pattern is regular, symmetrical, Breath sounds are clear bilaterally. GI: No signs and/or symptoms were reported involving the gastrointestinal system. Abdomen is round non-distended, obese, Bowel sounds present X 4 quads. Abd is soft X 4 quads Reports "i was having pain during a heated family discussion but i dont have pain now". : No signs and/or symptoms were reported regarding the genitourinary system. EENT: No signs and/or symptoms were reported regarding the EENT system. Derm: No signs and/or symptoms reported regarding the dermatologic system. Musculoskeletal: Circulation, motion, and sensation intact. Range of motion: intact in all extremities. 15:03 Reassessment: Patient appears in no apparent distress at this time. No changes from tw2 previously documented assessment. Patient and/or family updated on plan of care and expected duration. Pain level reassessed. Patient is alert, oriented x 3, equal unlabored respirations, skin warm/dry/pink. 15:34 Reassessment: US at bedside at this time. tw2 15:53 Reassessment: Patient appears in no apparent distress at this time. No changes from tw2 previously documented assessment. Patient and/or family updated on plan of care and expected duration. Pain level reassessed. Patient is alert, oriented x 3, equal unlabored respirations, skin warm/dry/pink. Vital Signs: 12:56 BP 114 / 71; Pulse 78; Resp 17; Temp 98.5(O); Pulse Ox 99% on R/A; Weight 95.25 kg; em Height 5 ft. 1 in. (154.94 cm); Pain 6/10; 14:14 BP 130 / 81; Pulse 88; Resp 17; Pulse Ox 100% on R/A; tw2 15:03 BP 131 / 84; Pulse 74; Resp 17; Pulse Ox 100% on R/A; tw2 15:53 BP 131 / 86; Pulse 76; Resp 17; Pulse Ox 100% on R/A; tw2 12:56 Body Mass Index 39.68 (95.25 kg, 154.94 cm) em ED Course: 12:47 Patient arrived in ED. mr 12:54 [facility]C [facility] kb 12:54 Sree Armando MD is Attending Physician. kb 12:59 Triage completed. em 12:59 Arm band placed on. em 13:58 Ritu Blair, RN is Primary Nurse. tw2 14:00 Placed in gown. Bed in low position. tw2 14:13 Inserted saline lock: 20 gauge in right antecubital area, using aseptic technique. tw2 Blood collected. 14:20 Pulse ox on. NIBP on. tw2 15:55 No provider procedures requiring assistance completed. IV discontinued, intact, tw2 bleeding controlled, No redness/swelling at site. Pressure dressing applied. 15:56 US Transvaginal Ob In Process Unspecified. EDMS Administered Medications: No medications were administered Outcome: 15:47 Discharge ordered by . kb 15:55 Discharged to home ambulatory. tw2 15:55 Condition: stable 15:55 Discharge instructions given to patient, Instructed on discharge instructions, follow up and referral plans. Demonstrated understanding of instructions, follow-up care, medications. 15:56 Patient left the ED. tw2 Signatures: Dispatcher [employer] EDMS Malu Hansen FNP-C FNP-Ralph TarunJil mr QuinonesSantino, RN RN em Ritu Blair, RN RN tw2
--- NOTE | 2020-08-02 15:48 | EDPHYS ---
Physician Documentation [facility] Name: Vira Silva Age: 24 yrs Sex: Female : 1995 Arrival Date: 08/02/2020 Time: 12:47 Bed 24 Private MD: ED Physician Sree Armnado HPI: 08/02 14:14 This 24 yrs old Female presents to ER via Ambulatory with complaints of 4 wks kb , Abdominal Pain. 14:14 The patient presents to the emergency department with abdominal pain. The estimated kb gestational age is 4 weeks. course: care: none, Leakage of Fluid: none appreciated, Ultrasound: the patient has not had an ultrasound, Risk/complications: no obvious risks or complications are appreciated. Previous pregnancies: in previous pregnancies patient has had. Associated signs and symptoms: Pertinent positives: abdominal pain. The patient has not experienced similar symptoms in the past. The patient has not recently seen a physician. PT reports she was arguing with her family and started having lower abd pain. States the pain lasted more than an hour so she was concerned . 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 - Social history:: Smoking status: Patient denies any tobacco usage or history of. ROS: 14:14 Constitutional: Negative for fever, chills, and weight loss, Cardiovascular: Negative kb for chest pain, palpitations, and edema, Respiratory: Negative for shortness of breath, cough, wheezing, and pleuritic chest pain, Back: Negative for injury and pain, : Negative for injury, bleeding, discharge, and swelling, MS/Extremity: Negative for injury and deformity, Skin: Negative for injury, rash, and discoloration, Neuro: Negative for headache, weakness, numbness, tingling, and seizure. 14:14 Abdomen/GI: Positive for abdominal pain, Negative for nausea, vomiting, and diarrhea. Exam: 14:14 Constitutional: This is a well developed, well nourished patient who is awake, alert, kb and in no acute distress. Head/Face: Normocephalic, atraumatic. Neck: Trachea midline, no thyromegaly or masses palpated, and no cervical lymphadenopathy. Supple, full range of motion without nuchal rigidity, or vertebral point tenderness. No Meningismus. Chest/axilla: Normal chest wall appearance and motion. Nontender with no deformity. No lesions are appreciated. Cardiovascular: Regular rate and rhythm with a normal S1 and S2. No gallops, murmurs, or rubs. Normal PMI, no JVD. No pulse deficits. Respiratory: Lungs have equal breath sounds bilaterally, clear to auscultation and percussion. No rales, rhonchi or wheezes noted. No increased work of breathing, no retractions or nasal flaring. Abdomen/GI: Soft, non-tender, with normal bowel sounds. No distension or tympany. No guarding or rebound. No evidence of tenderness throughout. Skin: Warm, dry with normal turgor. Normal color with no rashes, no lesions, and no evidence of cellulitis. MS/ Extremity: Pulses equal, no cyanosis. Neurovascular intact. Full, normal range of motion. Neuro: Awake and alert, GCS 15, oriented to person, place, time, and situation. Cranial nerves II-XII grossly intact. Motor strength 5/5 in all extremities. Sensory grossly intact. Cerebellar exam normal. Normal gait. Vital Signs: 12:56 BP 114 / 71; Pulse 78; Resp 17; Temp 98.5(O); Pulse Ox 99% on R/A; Weight 95.25 kg; em Height 5 ft. 1 in. (154.94 cm); Pain 6/10; 14:14 BP 130 / 81; Pulse 88; Resp 17; Pulse Ox 100% on R/A; tw2 15:03 BP 131 / 84; Pulse 74; Resp 17; Pulse Ox 100% on R/A; tw2 15:53 BP 131 / 86; Pulse 76; Resp 17; Pulse Ox 100% on R/A; tw2 12:56 Body Mass Index 39.68 (95.25 kg, 154.94 cm) em MDM: 13:52 Patient medically screened. kb 14:14 Data reviewed: vital signs, nurses notes. Data interpreted: Pulse oximetry: on room air kb is 99 %. Interpretation: normal. 15:46 Counseling: I had a detailed discussion with the patient and/or guardian regarding: the kb historical points, exam findings, and any diagnostic results supporting the discharge/admit diagnosis, lab results, radiology results, the need for outpatient follow up, an OB/Gyne specialist, to return to the emergency department if symptoms worsen or persist or if there are any questions or concerns that arise at home. 08/02 12:54 Order name: Quantitative Hcg; Complete Time: 14:47 kb 08/02 12:54 Order name: Abo/rh Typing; Complete Time: 15:06 kb 08/02 12:54 Order name: Basic Metabolic Panel; Complete Time: 14:47 kb 08/02 12:54 Order name: CBC with Diff; Complete Time: 14:33 kb 08/02 14:48 Order name: Urine Dipstick--Ancillary (enter results); Complete Time: 15:31 em1 08/02 14:48 Order name: Urine --Ancillary (enter results); Complete Time: 15:31 em1 08/02 12:54 Order name: Urine Test (obtain specimen); Complete Time: 15:12 kb 08/02 12:54 Order name: IV Saline Lock; Complete Time: 14:13 kb 08/02 12:54 Order name: Labs collected and sent; Complete Time: 14:13 kb 08/02 12:54 Order name: NPO; Complete Time: 15:09 kb 08/02 12:54 Order name: Urine Dipstick-Ancillary (obtain specimen); Complete Time: 15:09 kb 08/02 14:48 Order name: US Transvaginal Ob kb Administered Medications: No medications were administered Disposition: 08/03 14:02 Co-signature as Attending Physician, Sree Armando MD I agree with the assessment and kdr plan of care. Disposition: 08/02/20 15:47 Discharged to Home. Impression: state, Lower abdominal pain, unspecified. - Condition is Stable. - Discharge Instructions: First Trimester of , [id number], Abdominal Pain During , Erwd-fo-Fobz. - Medication Reconciliation Form, Thank You Letter, Antibiotic Education, Prescription Opioid Use, Work release form form. - Follow up: Emergency Department; When: As needed; Reason: Worsening of condition. Follow up: Private Physician; When: 2 - 3 days; Reason: Recheck today's complaints, Continuance of care, Re-evaluation by your physician. Signatures: Dispatcher [employer] Malu Jones, ANALYSIS LEAD-C ANALYSIS LEAD-CkSree Alcaraz MD MD kdr Munoz, Edgar, SCOTTIE RN Ritu Mondragon RN RN tw2 Corrections: (The following items were deleted from the chart) 08/02 15:56 15:47 08/02/2020 15:47 Discharged to Home. Impression: state; Lower abdominal tw2 pain, unspecified. Condition is Stable. Forms are Work release form, Medication Reconciliation Form, Thank You Letter, Antibiotic Education, Prescription Opioid Use. Follow up: Emergency Department; When: As needed; Reason: Worsening of condition. Follow up: Private Physician; When: 2 - 3 days; Reason: Recheck today's complaints, Continuance of care, Re-evaluation by your physician. kb
[2020-08-02 16:31] VITALS: TEMP 98.5
--- NOTE | 2020-08-02 16:31 | RAD REPORT ---
EXAM DESCRIPTION: US - Transvaginal OB - 08/02/2020 3:55 pm CLINICAL HISTORY: ABD CRAMPING, COMPARISON: OB Complete dated 10/02/2016; Abdomen Pelvis W Contrast dated 10/14/2019 FINDINGS: Endometrial stripe is approximately 4-5 mm. No gestational sac or sac remnant identifiable . No hematoma, mass or other finding in the endometrial cavity. No myometrial mass. Uterus is normal size. Right ovary and right adnexa are unremarkable. Left ovary is unremarkable. There is an 18 millimeter cyst adjacent to the left ovary that could be a paraovarian cyst or exophytic ovarian cyst. This is n ot suspected to be ectopic . No blood or fluid in the cul de sac. IMPRESSION: No intrauterine gestational sac or sac remnant. No endometrial cavity abnormality. Small 18 millimeter exophytic ovarian cyst or paraovarian cyst. No evidence for an adnexal ectopic .
[2020-08-02 16:32] VITALS: O2SAT 100
[2020-08-02 16:34] VITALS: BP 131/86
== END 2020-08-02 15:56 | disposition home or self-care (01) ==
LOC: ER 12:43
DX: O26.891 Other specified pregnancy related conditions, first trimester (principal); Z3A.01 Less than 8 weeks gestation of pregnancy
CPT/HCPCS: 36415; 76817; 80048; 81003; 81025; 84702; 85025; 86900; 86901; 99284

== ENCOUNTER 2021-02-28 20:00 | Emergency (ER) | payer OTHER ==
--- OUTSIDE RECORDS SUMMARY | 2021-02-28 20:03 | XMS REPORT | Continuity of Care Document ---
:1995 Author Organization [facility] t Address [address] [place] [address] Care Team Providers Name Role Phone Terence Urrutia Attending Clinician Problems This patient has no known problems. Allergies, Adverse Reactions, Alerts This patient has no known allergies or adverse reactions. Medications This patient has no known medications. Procedures This patient has no known procedures. 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
[2021-02-28 22:59] LABS: Absolute Lymphocytes (CBC) 2.4 K/uL (0.7-4.9); Basophils % 0.2 % (0-1.3); Hematocrit 34.5 % (36.0-45.0); Lymphocytes % 17.4 % (15.3-44.8); MPV 9.9 fL (7.6-11.3); RBC Red Blood Cell Count 4.28 M/uL (3.86-4.86)
[2021-02-28 23:11] LABS: ALT/SGPT 17 U/L (12-78); AST/SGOT 10 U/L (15-37); Albumin 2.7 g/dL (3.4-5.0); Alkaline Phosphatase 135 U/L (45-117); BUN Blood Urea Nitrogen 6 mg/dL (7-18); Bicarbonate 22 mmol/L (21-32); Bilirubin Direct 0.1 mg/dL (0-0.2); Bilirubin Total 0.3 mg/dL (0.2-1.0); Glucose Level 75 mg/dL (74-106); Lipase 79 U/L (73-393); Potassium 3.8 mmol/L (3.5-5.1); Sodium Level 138 mmol/L (136-145)
--- NOTE | 2021-02-28 23:55 | EDPHYS ---
Physician Documentation [facility] Name: Vira Silva Age: 25 yrs Sex: Female : 1995 Arrival Date: 02/28/2021 Time: 20:01 Bed 6 Private MD: ED Physician Baljit Baig HPI: 02/28 23:49 This 25 yrs old Female presents to ER via Ambulatory with complaints of abd rn pain, diarrhea. 23:49 The patient presents with abdominal pain in the right upper quadrant. Onset: The rn symptoms/episode began/occurred 2 week(s) ago. The symptoms do not radiate. Associated signs and symptoms: Pertinent positives: diarrhea, nausea, Pertinent negatives: blood in stools, chest pain, dysuria, fever, shortness of breath, vaginal discharge. The symptoms are described as achy. Modifying factors: The symptoms are alleviated by nothing, the symptoms are aggravated by deep breath. Severity of pain: At its worst the pain was moderate in the emergency department the pain has improved. The patient has experienced similar episodes in the past. Reports 2 weeks of right upper quadrant pain, states feels similar to tamiko had gallstones but had gallbladder removed last year. No fever, no cough/sob. Reports abdomen hurts more with deep breath. No hx of dvt/pe. No trauma. + diarrhea. No blood in stool. No related complaints. . 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 - Social history:: Smoking status: Patient denies any tobacco usage or history of. - Family history:: not pertinent. - Hospitalizations: : No recent hospitalization is reported. ROS: 23:49 Constitutional: Negative for fever, chills, and weight loss, Eyes: Negative for injury, rn pain, redness, and discharge, Neck: Negative for injury, pain, and swelling, Cardiovascular: Negative for chest pain, palpitations, and edema, Respiratory: Negative for shortness of breath, cough, wheezing Abdomen/GI: + RUQ pain and nausea, + diarrhea Back: Negative for injury and pain, : Negative for injury, bleeding, discharge, and swelling, MS/Extremity: Negative for injury and deformity, Skin: Negative for injury, rash, and discoloration, Neuro: Negative for headache, weakness, numbness, tingling, and seizure. Exam: 23:49 Constitutional: This is a well developed, well nourished patient who is awake, alert, rn and in no acute distress. Head/Face: Normocephalic, atraumatic. Cardiovascular: Regular rate and rhythm. No pulse deficits. Respiratory: No increased work of breathing, no retractions or nasal flaring. Speaking full sentences. No pain with deep inspiration. Abdomen/GI: soft, non-tender, neg forbes, no masses, + gravid uterus up to epigastric region. Skin: Warm, dry with normal turgor. Normal color with no rashes, no lesions, and no evidence of cellulitis. MS/ Extremity: Pulses equal, no cyanosis. Neurovascular intact. Full, normal range of motion. Equal circumference. Neuro: Awake and alert, GCS 15, oriented to person, place, time, and situation. Cranial nerves II-XII grossly intact. Motor strength 5/5 in all extremities. Sensory grossly intact. Cerebellar exam normal. Normal gait. Vital Signs: 20:20 BP 117 / 73; Pulse 97; Resp 18; Temp 98.7; Pulse Ox 95% ; Weight 104.33 kg; Height 5 ll1 ft. 1 in. (154.94 cm); Pain 8/10; 03/01 00:11 BP 110 / 68; Pulse 80; Resp 18; Temp 98; Pulse Ox 100% on R/A; mg2 02/28 20:20 Body Mass Index 43.46 (104.33 kg, 154.94 cm) ll1 MDM: 02/28 21:58 Patient medically screened. rn 22:27 ED course: Pt refused xray chest, and states "not my chest", so xray chest and ddimer rn canceled as she refuses subsequent imaging. . 23:49 Differential diagnosis: gastritis, gastroesophageal reflux disease, Hepatitis, rn non-specific abd pain, pancreatitis, Peptic Ulcer Disease. Data reviewed: vital signs, nurses notes, lab test result(s), radiologic studies, ultrasound, and as a result, I will discharge patient. Counseling: I had a detailed discussion with the patient and/or guardian regarding: the historical points, exam findings, and any diagnostic results supporting the discharge/admit diagnosis, lab results, radiology results, the need for outpatient follow up, to return to the emergency department if symptoms worsen or persist or if there are any questions or concerns that arise at home. Special discussion: I discussed with the patient/guardian in detail that at this point there is no indication for admission to the hospital. It is understood, however, that if the symptoms persist or worsen the patient needs to return immediately for re-evaluation. Based on the history and exam findings, there is no indication for further emergent testing or inpatient evaluation. I discussed with the patient/guardian the need to see the laboratory animal caretaker for further evaluation of the symptoms. I discussed with the patient/guardian the need to see the OB Gyne specialist for further evaluation of the symptoms. ED course: U/S without acute abnormality, has already had gallbladder removed, afebrile, pain for 2 weeks and 34 weeks . No signs of retained stones on ultrasound. May be related pain vs viral illness with diarrhea vs gastritis given late in . Will dc home with OB f/u and GI f/u. Pt insists no pain in chest or sob.. 02/28 22:06 Order name: Basic Metabolic Panel 02/28 22:06 Order name: CBC with Diff rn 02/28 22:06 Order name: Hepatic Function 02/28 22:06 Order name: Lipase rn 02/28 23:09 Order name: CBC with Automated Diff; Complete Time: 23:46 EDMS 02/28 22:06 Order name: US Abdomen Limited 02/28 22:06 Order name: IV Saline Lock; Complete Time: 22:40 rn 02/28 22:06 Order name: Labs collected and sent; Complete Time: 22:40 rn 02/28 22:07 Order name: XRAY Chest (1 view) rn 02/28 23:11 Order name: Basic Metabolic Panel; Complete Time: 23:46 EDMS 02/28 23:11 Order name: Liver (Hepatic) Function; Complete Time: 23:46 EDMS 02/28 23:11 Order name: Lipase; Complete Time: 23:46 EDMS Administered Medications: No medications were administered Disposition: 02/28/21 23:54 Discharged to Home. Impression: Upper abdominal pain, unspecified. - Condition is Stable. - Discharge Instructions: Abdominal Pain, Adult, Abdominal Pain During , Pain Without a Known Cause. - Medication Reconciliation Form, Thank You Letter, Antibiotic Education, Prescription Opioid Use form. - Follow up: Private Physician; When: As needed; Reason: Recheck today's complaints, Re-evaluation by your physician. - Problem is an ongoing problem. - Symptoms have improved. Signatures: Dispatcher [employer] EDMS Baljit Baig MD MD rn Nir Moreno RN RN mg2 Mark Griffith RN RN ll1 Corrections: (The following items were deleted from the chart) 03/01 00:12 02/28 23:54 02/28/2021 23:54 Discharged to Home. Impression: Upper abdominal pain, mg2 unspecified. Condition is Stable. Forms are Medication Reconciliation Form, Thank You Letter, Antibiotic Education, Prescription Opioid Use. Follow up: Private Physician; When: As needed; Reason: Recheck today's complaints, Re-evaluation by your physician. Problem is an ongoing problem. Symptoms have improved. rn
--- NOTE | 2021-02-28 23:55 | ER ---
Nurse's Notes [facility] Name: Vira Silva Age: 25 yrs Sex: Female : 1995 Arrival Date: 02/28/2021 Time: 20:01 Bed 6 Private MD: Diagnosis: Upper abdominal pain, unspecified Presentation: 02/28 20:20 Chief complaint: Patient states: RUQ abd pain for 1 week with slight diarrhea. No ll1 fever. 37 weeks . G3, P2. No vaginal bleeding, + movement. Coronavirus screen: Client denies travel out of the [place] in the last 14 days. At this time, the client does not indicate any symptoms associated with coronavirus-19. Ebola Screen: Patient denies travel to an Ebola-affected area in the 21 days before illness onset. Initial Sepsis Screen: Does the patient meet any 2 criteria? HR > 90 bpm. No. Patient's initial sepsis screen is negative. Does the patient have a suspected source of infection? Yes: Acute abdominal pain. Risk Assessment: Do you want to hurt yourself or someone else? Patient reports no desire to harm self or others. Onset of symptoms was February 21, 2021. 20:20 Method Of Arrival: Ambulatory ll1 20:20 Acuity: SERGIO 3 ll1 Triage Assessment: 23:23 General: Behavior is calm. General: Appears in no apparent distress. comfortable. mg2 Respiratory: Reports shortness of breath the patient has mild shortness of breath. Respiratory: Onset: The symptoms/episode began/occurred gradually. 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 - Social history:: Smoking status: Patient denies any tobacco usage or history of. - Family history:: not pertinent. - Hospitalizations: : No recent hospitalization is reported. Screenin:22 Abuse screen: Denies threats or abuse. Denies injuries from another. Nutritional mg2 screening: No deficits noted. Tuberculosis screening: No symptoms or risk factors identified. Fall Risk IV access (20 points). Assessment: 22:40 General: Appears in no apparent distress. comfortable. mg2 22:40 Pain: Complains of pain in abdomen Pain radiates to back. mg2 22:40 Neuro: Level of Consciousness is awake, alert, obeys commands, Oriented to person, mg2 place, time, situation. 22:40 Cardiovascular: Capillary refill < 3 seconds. Respiratory: Airway is patent Respiratory mg2 effort is even, unlabored, Respiratory pattern is regular, symmetrical. GI: No signs and/or symptoms were reported involving the gastrointestinal system. : No signs and/or symptoms were reported regarding the genitourinary system. EENT: No signs and/or symptoms were reported regarding the EENT system. Derm: Skin is intact, is healthy with good turgor, Skin is pink, warm \T\ dry. normal. Musculoskeletal: Circulation, motion, and sensation intact. Capillary refill < 3 seconds. 23:24 Cardiovascular: Rhythm is regular. Respiratory: Breath sounds are clear. mg2 03/01 00:12 Reassessment: Patient appears in no apparent distress at this time. Patient and/or mg2 family updated on plan of care and expected duration. Pain level reassessed. Vital Signs: 02/28 20:20 BP 117 / 73; Pulse 97; Resp 18; Temp 98.7; Pulse Ox 95% ; Weight 104.33 kg; Height 5 ll1 ft. 1 in. (154.94 cm); Pain 8/10; 03/01 00:11 BP 110 / 68; Pulse 80; Resp 18; Temp 98; Pulse Ox 100% on R/A; mg2 02/28 20:20 Body Mass Index 43.46 (104.33 kg, 154.94 cm) ll1 ED Course: 02/28 20:01 Patient arrived in ED. cl3 20:22 Triage completed. ll1 20:23 Arm band placed on. ll1 21:58 Baljit Baig MD is Attending Physician. rn 22:13 Kevyn Garza, RN is Primary Nurse. jb4 22:38 Nir Moreno, SCOTTIE is Primary Nurse. mg2 22:40 No provider procedures requiring assistance completed. Inserted saline lock: 20 gauge mg2 in right antecubital area, using aseptic technique. Blood collected. 23:23 Patient has correct armband on for positive identification. Pulse ox on. NIBP on. mg2 03/01 00:12 IV discontinued, intact, bleeding controlled, No redness/swelling at site. Pressure mg2 dressing applied. Administered Medications: No medications were administered Outcome: 02/28 23:54 Discharge ordered by . rn 03/01 00:12 Discharged to home ambulatory. mg2 Condition: stable Discharge instructions given to patient, Instructed on discharge instructions, follow up and referral plans. Demonstrated understanding of instructions, follow-up care. 00:12 Patient left the ED. mg2 Signatures: Baljit Baig MD MD rn Bryson, James RN RN jb4 Nir Moreno RN RN mg2 Ellyn Griffith cl3 Mark Griffith RN RN ll1 Corrections: (The following items were deleted from the chart) 02/28 20:23 20:20 Chief complaint: Patient states: RUQ abd pain for 1 week with slight diarrhea. No ll1 fever. ll1 23:22 23:20 General: Appears in no apparent distress. comfortable, mg2 mg2
[2021-03-01 01:02] VITALS: BP 110/68; TEMP 98; O2SAT 100
--- NOTE | 2021-03-01 08:23 | RAD REPORT ---
EXAM DESCRIPTION: US - Abdomen Exam Limited - 02/28/2021 10:23 pm CLINICAL HISTORY: eval biliary ducts, s/p cholecystectomy 1 year ago Abdominal pain COMPARISON: Abdomen Exam Limited dated 02/14/2018 FINDINGS: The gallbladder is surgically absent. The common bile duct is normal measuring 4 mm. The liver demonstrates no findings of intrahepatic biliary dilatation. IMPRESSION: Cholecystectomy. No pathologic biliary dilatation.
== END 2021-03-01 00:12 | disposition home or self-care (01) ==
LOC: ER 20:00
DX: O26.893 Other specified pregnancy related conditions, third trimester (principal); Z3A.34 34 weeks gestation of pregnancy
CPT/HCPCS: 36415; 76705; 80048; 80076; 83690; 85025; 99283

== ENCOUNTER 2021-04-25 12:52 | Emergency (ER) | payer OTHER ==
--- OUTSIDE RECORDS SUMMARY | 2021-04-25 12:56 | XMS REPORT | Continuity of Care Document ---
:[address] [facility] t Address [address] [place] [address] Care Team Providers Name Role Phone Terence Urrutia Attending Clinician Problems This patient has no known problems. Allergies, Adverse Reactions, Alerts This patient has no known allergies or adverse reactions. Medications This patient has no known medications. Procedures This patient has no known procedures. Encounters Start End Encounter Admission Attending Care Care Encounter Source Date/Time Date/Time Type Type Clinicians Facility Department ID 2021-03-29 2021-03-29 Routine CHARLENE Bacon [id number] 12:56:20 13:26:57 [employer]ER [id number] Visit REGIONAL [id number] MATERNAL [id number] & CHILD [address] [facility] [place] 2021-03-15 2021-03-15 Routine CHARLENE Bacon [id number] 0000 13:06:32 13:45:27 [employer] [id number] Visit REGIONAL [id number] MATERNAL [id number] & CHILD 107 [facility] [place] 2021-03-15 2021-03-15 Telephone CHARLENE Bacon [id number] 00:00:00 00:00:00 [employer] [id number] REGIONAL [id number] MATERNAL [id number] & CHILD 107 [facility] [place] Results This patient has no known results.
[2021-04-25 13:38] LABS: Urine Blood 2+ (Negative); Urine Glucose Negative (Negative); Urine Protein Trace (Negative); Urine Specific Gravity 1.025 (1.005-1.030); Urine pH 5.5 (5.0-7.0)
[2021-04-25 14:29] LABS: Urine Specific Gravity/Preg 1.025 (1.005-1.030)
[2021-04-25 14:45] LABS: Absolute Lymphocytes (CBC) 2.4 K/uL (0.7-4.9); Basophils % 0.6 % (0-1.3); Hematocrit 36.2 % (36.0-45.0); Lymphocytes % 19.8 % (15.3-44.8); MPV 9.7 fL (7.6-11.3); RBC Red Blood Cell Count 4.47 M/uL (3.86-4.86)
--- NOTE | 2021-04-25 15:13 | RAD REPORT ---
EXAM DESCRIPTION: CT - Abdomen Pelvis W Contrast - 04/25/2021 2:39 pm CLINICAL HISTORY: Abdominal pain COMPARISON: 2019 TECHNIQUE Computed axial tomography of the abdomen pelvis was obtained. 100 cc Isovue-300 was admini stered intravenously. Oral contrast was not requested which limits evaluation of bowel. All CT scans are performed using dose optimization technique as appropriate and may include automated exposure control or mA/KV adjustment according to patient size. FINDINGS: The liver, spleen, pancreas, adrenal and kidneys appear unremarkable. Normal appendix. No evidence of diverticulitis. A 4 centimeter low-density mass left adnexa with small amount of ill-defined fluid extending superior ly and stranding within the adjacent fat. Couple of air bubbles are present within the vagina and cervix IMPRESSION: 4 centimeter low-density left adnexal mass suspicious for a tubo-ovarian abscess. This s hould be correlated clinically and with appropriate lab values Couple of air bubbles within the vagina and cervix may infection
[2021-04-25] MEDS ORDERED: PIPER/TAZO/NS 3.375gm 3.375 GM/100 ML BAG ONE (15:45)
[2021-04-25] MEDS ORDERED: ONDANSETRON 4 MG/2 ML VIAL ONE ×3 (15:45→18:59)
[2021-04-25] MEDS ORDERED: MORPHINE 4 MG/ML SYR ONE ×3 (15:45→18:59)
[2021-04-25 16:06] LABS: Urine Bacteria <20 /HPF (<20)
[2021-04-25 16:23] LABS: ALT/SGPT 24 U/L (12-78); AST/SGOT 15 U/L (15-37); Albumin 3.2 g/dL (3.4-5.0); Alkaline Phosphatase 113 U/L (45-117); BUN Blood Urea Nitrogen 12 mg/dL (7-18); Bicarbonate 28 mmol/L (21-32); Bilirubin Direct 0.1 mg/dL (0-0.2); Bilirubin Total 0.4 mg/dL (0.2-1.0); Glucose Level 86 mg/dL (74-106); Lipase 73 U/L (73-393); Protein, Total 8.4 g/dL (6.4-8.2); Sodium Level 138 mmol/L (136-145)
--- NOTE | 2021-04-25 16:26 | RAD REPORT ---
EXAM DESCRIPTION: US - Transvaginal Study Probe - 04/25/2021 4:02 pm CLINICAL HISTORY: Pelvic COMPARISON: April 25, 2021 CT FINDINGS: The uterus measures 9 x 5 x 7cm. A fibroid is not seen. The endometrial stripe is normal t hickness. The right ovary is normal in size and echotexture. Left ovary appears normal in size and echotexture. Within the left adnexa is a 4 centimeter hypoechoic mass. Right adnexal unremarkable. No significant free fluid is seen. IMPRESSION: A 4 centimeter hypoechoic mass left adnexal suspicious for a tubo-ovarian abscess
--- NOTE | 2021-04-25 17:15 | ER ---
Nurse's Notes [facility] Name: Vira Silva Age: 25 yrs Sex: Female : 1995 Arrival Date: 04/25/2021 Time: 12:57 Bed 18 Private MD: out of town, doctor Diagnosis: Tubo Ovarian Abscess Presentation: 04/25 13:16 Chief complaint: Patient states: i went into labor the 06 of april, i had a uterus tw2 infection but they sent me home, i was on antibiotics. i have had pain on my LEFT side and if feels like a cramp, like a meera horse. i went to [facility] and said i have an infection so they prescribed my antibiotics. my whole vaginal area hurts and i am having a yellow mucous draining, and pain with urination, last night i felt chills and cold but i havent had a fever. Coronavirus screen: At this time, the client does not indicate any symptoms associated with coronavirus-19. Ebola Screen: Patient denies travel to an Ebola-affected area in the 21 days before illness onset. Initial Sepsis Screen: Does the patient meet any 2 criteria? HR > 90 bpm. Does the patient have a suspected source of infection? No. Patient's initial sepsis screen is negative. Risk Assessment: Do you want to hurt yourself or someone else? Patient reports no desire to harm self or others. Onset of symptoms was April 25, 2021. 13:16 Method Of Arrival: Ambulatory tw2 13:16 Acuity: SERGIO 3 tw2 Triage Assessment: 13:20 General: Appears uncomfortable, Behavior is calm, cooperative, appropriate for age. tw2 Pain: Complains of pain in pelvis. GI: Reports lower abdominal pain, cramping. : Reports burning with urination. 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 - Social history:: Smoking status: . Screenin:48 Abuse screen: Denies threats or abuse. Denies injuries from another. Nutritional kg screening: No deficits noted. Tuberculosis screening: No symptoms or risk factors identified. Fall Risk None identified. No fall in past 12 months (0 pts). No secondary diagnosis (0 pts). No IV (0 pts). Ambulatory Aid- None/Bed Rest/Nurse Assist (0 pts). Gait- Normal/Bed Rest/Wheelchair (0 pts) Mental Status- Oriented to own ability (0 pts). Total Hill Fall Scale indicates No Risk (0-24 pts). Assessment: 13:38 General: Appears uncomfortable, Behavior is calm, cooperative, appropriate for age, kg quiet. Pain: Complains of pain in left lower quadrant Pain radiates to left low back and left mid back Pain currently is 9 out of 10 on a pain scale. at worst was 10 out of 10 on a pain scale. level that patient reports is acceptable is 3 out of 10 on a pain scale. Quality of pain is described as aching, crampy, sharp, stabbing, Pain began gradually, "since I left the hospital in March after having my baby". Is continuous. Neuro: No deficits noted. Neuro: Level of Consciousness is awake, alert, obeys commands, Oriented to person, place, time, situation, Appropriate for age. Cardiovascular: No deficits noted. Respiratory: No deficits noted. GI: Bowel sounds present X 4 quads. Abd is soft X 4 quads Abdomen is tender to palpation in suprapubic area, left upper quadrant and left lower quadrant Reports cramping, Pain is 8 out of 10 on a pain scale. : Reports pain in left in suprapubic area lower quadrant(s). EENT: No deficits noted. Derm: No deficits noted. Musculoskeletal: No deficits noted. Vital Signs: 13:16 BP 120 / 74; Pulse 106; Resp 17; Temp 98.6(TE); Pulse Ox 98% on R/A; Weight 90.72 kg tw2 (R); Pain 8/10; 14:30 BP 107 / 78; Pulse 98; Resp 20; Pulse Ox 98% ; kg 15:30 BP 115 / 78; Pulse 99; Resp 20; Pulse Ox 98% on R/A; kg 16:30 BP 111 / 67; Pulse 99; Resp 20; Pulse Ox 98% on R/A; kg 17:45 BP 112 / 75; Pulse 105; Resp 20; Pulse Ox 98% on R/A; kg ED Course: 12:57 Patient arrived in ED. hh 12:57 out of town, doctor is Private Physician. hh 13:19 Triage completed. tw2 13:20 Arm band placed on. tw2 13:23 Ritu Blair RN is Primary Nurse. tw2 13:28 Michael Fierro PA is PHCP. jr8 13:28 Sree Armando MD is Attending Physician. jr8 13:49 Patient has correct armband on for positive identification. Bed in low position. Call kg light in reach. Side rails up X 1. 13:55 Inserted saline lock: 20 gauge in right antecubital area, using aseptic technique. kg 14:10 Inserted saline lock: 20 gauge in left antecubital area, using aseptic technique. kg 14:39 CT Abd/Pelvis - IV Contrast Only In Process Unspecified. EDMS 15:52 US Transvaginal Study (Probe) In Process Unspecified. EDMS 18:47 No provider procedures requiring assistance completed. kg 18:48 Patient transferred, IV remains in place. kg Administered Medications: 15:15 Drug: morphine 4 mg Route: IVP; Site: left antecubital; kg 16:15 Follow up: Response: No adverse reaction; Marked relief of symptoms; Pain is decreased kg 15:15 Drug: Zofran (Ondansetron) 4 mg Route: IVP; Site: left antecubital; kg 17:00 Follow up: Response: No adverse reaction; Marked relief of symptoms; Pain is decreased kg 16:11 Drug: Zosyn (piperacillin-tazobactam) 3.375 grams Route: IVPB; Infused Over: 60 mins; kg Site: left antecubital; 16:15 Follow up: IV Status: Completed infusion; IV Intake: 100ml kg 18:52 Follow up: Response: No adverse reaction kg 16:41 Drug: morphine 4 mg Route: IVP; Site: right antecubital; kg 18:51 Follow up: Response: No adverse reaction; Marked relief of symptoms; Pain is decreased kg 16:41 Drug: Zofran (Ondansetron) 4 mg Route: IVP; Site: right antecubital; kg 18:51 Follow up: Response: No adverse reaction; Marked relief of symptoms kg 18:40 Drug: morphine 4 mg Route: IVP; Site: left antecubital; kg 18:53 Follow up: Response: No adverse reaction; Marked relief of symptoms kg 18:40 Drug: Zofran (Ondansetron) 4 mg Route: IVP; Site: left antecubital; kg 18:52 Follow up: Response: No adverse reaction; Marked relief of symptoms kg Intake: 16:15 IV: 100ml; Total: 100ml. kg Outcome: 17:14 ER care complete, transfer ordered by MD. giraldo 18:47 Transferred by ground EMS to [facility], Transfer form kg completed. 18:47 Condition: stable 18:47 Instructed on the need for transfer, Demonstrated understanding of instructions. 18:53 Patient left the ED. kg Signatures: Dispatcher [employer] EDMS Michael Fierro PA PA jr8 Ritu Blair RN RN tw2 Maria G Xiong RN RN kg [facility]
--- NOTE | 2021-04-25 17:15 | EDPHYS ---
Physician Documentation [facility] Name: Vira Silva Age: 25 yrs Sex: Female : 1995 Arrival Date: 04/25/2021 Time: 12:57 Bed 18 Private MD: out of town, doctor ED Physician Sree Armando HPI: 04/25 15:29 This 25 yrs old Female presents to ER via Ambulatory with complaints of jr8 Abdominal Pain. 15:29 The patient presents with abdominal pain in the left lower quadrant. Onset: The jr8 symptoms/episode began/occurred gradually, 2 week(s) ago. The symptoms radiate to the left flank. Associated signs and symptoms: none. The symptoms are described as stabbing. Modifying factors: The symptoms are alleviated by nothing, the symptoms are aggravated by movement. Severity of pain: At its worst the pain was moderate in the emergency department the pain is unchanged. The patient has not experienced similar symptoms in the past. The patient has been recently seen by a physician:. Patient stated that she had vaginal delivery about 2 weeks ago. Stated that she had some complications involving infection of uterus and possibly bladder. Stated that she is pending cultures right now but continues to have pain that is now getting worse . 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 - Social history:: Smoking status: . ROS: 15:43 Eyes: Negative for injury, pain, redness, and discharge, ENT: Negative for injury, jr8 pain, and discharge, Neck: Negative for injury, pain, and swelling, Cardiovascular: Negative for chest pain, palpitations, and edema, Respiratory: Negative for shortness of breath, cough, wheezing, and pleuritic chest pain, Back: Negative for injury and pain, MS/Extremity: Negative for injury and deformity, Skin: Negative for injury, rash, and discoloration, Neuro: Negative for headache, weakness, numbness, tingling, and seizure. 15:43 Abdomen/GI: Positive for abdominal pain, nausea, Negative for vomiting, diarrhea, constipation, abdominal cramps, abdominal distension. Exam: 15:43 Cardiovascular: Regular rate and rhythm with a normal S1 and S2. No gallops, murmurs, jr8 or rubs. Normal PMI, no JVD. No pulse deficits. Respiratory: Lungs have equal breath sounds bilaterally, clear to auscultation and percussion. No rales, rhonchi or wheezes noted. No increased work of breathing, no retractions or nasal flaring. Back: No spinal tenderness. No costovertebral tenderness. Full range of motion. Skin: Warm, dry with normal turgor. Normal color with no rashes, no lesions, and no evidence of cellulitis. MS/ Extremity: Pulses equal, no cyanosis. Neurovascular intact. Full, normal range of motion. Neuro: Awake and alert, GCS 15, oriented to person, place, time, and situation. Motor strength 5/5 in all extremities. Sensory grossly intact. 15:43 Constitutional: The patient appears alert, awake, uncomfortable. 15:43 Abdomen/GI: Inspection: obese Bowel sounds: active, all quadrants, Palpation: soft, in all quadrants, moderate abdominal tenderness, in the anterior aspect of left lateral abdomen and left lower quadrant, voluntary guarding, is not appreciated, involuntary guarding, is elicited in the left lower quadrant, no appreciated organomegaly, Indicators: McBurney's point is not tender, Sherman's sign is negative, Liver: tenderness, is not appreciated. Vital Signs: 13:16 BP 120 / 74; Pulse 106; Resp 17; Temp 98.6(TE); Pulse Ox 98% on R/A; Weight 90.72 kg tw2 (R); Pain 8/10; 14:30 BP 107 / 78; Pulse 98; Resp 20; Pulse Ox 98% ; kg 15:30 BP 115 / 78; Pulse 99; Resp 20; Pulse Ox 98% on R/A; kg 16:30 BP 111 / 67; Pulse 99; Resp 20; Pulse Ox 98% on R/A; kg 17:45 BP 112 / 75; Pulse 105; Resp 20; Pulse Ox 98% on R/A; kg MDM: 13:29 Patient medically screened. jr8 17:12 Data reviewed: vital signs, nurses notes, lab test result(s), radiologic studies, [facility] scan, ultrasound. Data interpreted: Pulse oximetry: on room air is 98 %. Interpretation: normal. Counseling: I had a detailed discussion with the patient and/or guardian regarding: the historical points, exam findings, and any diagnostic results supporting the discharge/admit diagnosis, lab results, radiology results, the need to transfer to another facility, [facility] does not immediately have the required specialist. 04/25 13:38 Order name: Urine Dipstick-Ancillary; Complete Time: 13:42 [facility] 04/25 13:43 Order name: Urine Microscopic Only; Complete Time: 16:24 [facility] 04/25 13:48 Order name: Basic Metabolic Panel; Complete Time: 16:25 [facility] 04/25 13:48 Order name: CBC with Diff; Complete Time: 15:15 [facility] 04/25 13:48 Order name: Hepatic Function; Complete Time: 16:25 [facility] 04/25 13:48 Order name: Lipase; Complete Time: 16:25 [facility] 04/25 13:48 Order name: Blood Culture Adult (2) [facility] 04/25 13:48 Order name: CT Abd/Pelvis - IV Contrast Only; Complete Time: 15:15 [facility] 04/25 13:49 Order name: Urine --Ancillary (enter results); Complete Time: 15:15 04/25 14:48 Order name: CREATININE WHOLE BLOOD; Complete Time: 15:15 [facility] 04/25 15:16 Order name: US Transvaginal Study (Probe); Complete Time: 16:28 [facility] 04/25 16:07 Order name: Urine Culture [facility] 04/25 17:39 Order name: SARS-COV-2 RT PCR; Complete Time: 17:39 [facility] 04/25 13:48 Order name: IV Saline Lock; Complete Time: 15:51 [facility] 04/25 13:48 Order name: Labs collected and sent; Complete Time: 15:51 [facility] Administered Medications: 15:15 Drug: morphine 4 mg Route: IVP; Site: left antecubital; kg 16:15 Follow up: Response: No adverse reaction; Marked relief of symptoms; Pain is decreased kg 15:15 Drug: Zofran (Ondansetron) 4 mg Route: IVP; Site: left antecubital; kg 17:00 Follow up: Response: No adverse reaction; Marked relief of symptoms; Pain is decreased kg 16:11 Drug: Zosyn (piperacillin-tazobactam) 3.375 grams Route: IVPB; Infused Over: 60 mins; kg Site: left antecubital; 16:15 Follow up: IV Status: Completed infusion; IV Intake: 100ml kg 18:52 Follow up: Response: No adverse reaction kg 16:41 Drug: morphine 4 mg Route: IVP; Site: right antecubital; kg 18:51 Follow up: Response: No adverse reaction; Marked relief of symptoms; Pain is decreased kg 16:41 Drug: Zofran (Ondansetron) 4 mg Route: IVP; Site: right antecubital; kg 18:51 Follow up: Response: No adverse reaction; Marked relief of symptoms kg 18:40 Drug: morphine 4 mg Route: IVP; Site: left antecubital; kg 18:53 Follow up: Response: No adverse reaction; Marked relief of symptoms kg 18:40 Drug: Zofran (Ondansetron) 4 mg Route: IVP; Site: left antecubital; kg 18:52 Follow up: Response: No adverse reaction; Marked relief of symptoms kg Disposition: 04/26 07:02 Co-signature as Attending Physician, Sree Armando MD I agree with the assessment and kdr plan of care. Disposition: 04/25/21 17:14 Transfer ordered to [facility]. Diagnosis is Tubo Ovarian Abscess . - Reason for transfer: Higher level of care. - Accepting physician is Dr. Mcwilliams . - Condition is Stable. - Problem is new. - Symptoms have improved. Signatures: Dispatcher [employer] EDVA Sree Armando MD MD [facility] Michael Fierro PA PA jr8 Ritu Blair RN RN tw2 Maria G Xiong RN RN kg Corrections: (The following items were deleted from the chart) 04/25 15:21 15:17 Transvaginal Study (Probe)+US.RAD.BRZ ordered. EDVA EDMS 15:44 15:29 Patient stated that she had vaginal delivery . jr8 jr8 16:42 16:11 CORONAVIRUS+MR.LAB.BRZ ordered. EDMS EDMS 18:53 17:14 04/25/2021 17:14 Transfer ordered to [facility]. Diagnosis is Tubo Ovarian kg Abscess . Reason for transfer: Higher level of care. Accepting physician is Dr. Mcwilliams . Condition is Stable. Problem is new. Symptoms have improved. jr8
[2021-04-25 19:17] VITALS: TEMP 98.6; O2SAT 98
[2021-04-25 19:34] VITALS: BP 112/75
== END 2021-04-25 18:53 | disposition short-term general hospital (02) ==
LOC: ER 12:52
DX: N70.93 Salpingitis and oophoritis, unspecified (principal); Z20.822 Contact with and (suspected) exposure to COVID-19
CPT/HCPCS: 87040 ×2; 87088; 85025; 87086; 80048; 36415; 81025; 82565; 80076; 83690; 74177; 76830; 99285; U0003; Q9967; J2543; J2405 ×3; 81003; 81015

== ENCOUNTER 2021-05-19 23:03 | Emergency (ER) | payer OTHER ==
--- OUTSIDE RECORDS SUMMARY | 2021-05-19 23:10 | XMS REPORT | Continuity of Care Document ---
:1995 Author Organization [facility] t Address [address] [place] [address] Care Team Providers Name Role Phone Doctor Unassigned, Name Attending Clinician Unavailable Cathy Leonard Attending Clinician Doug RUBIN, L Attending Clinician Unavailable Mathew Martins MD Attending Clinician Marshall DURAN M Attending Clinician AkinsiTerence Sloan Attending Clinician Marshall DURAN, M Admitting Clinician Problems This patient has no known problems. Allergies, Adverse Reactions, Alerts This patient has no known allergies or adverse reactions. Medications This patient has no known medications. Procedures This patient has no known procedures. Encounters Start End Encounter Admission Attending Care Care Encounter Source Date/Time Date/Time Type Type Clinicians Facility Department ID 2021-05-15 2021-05-15 Orders Doctor FER [id number] 00:00:00 00:00:00 Only UnassignedSUZY [id number] [place] [facility] [id number] 2021-05-08 2021-05-08 Routine CHARLENE Green [id number] 15:10:42 15:39:26 Roshundalon R DEVELOPMENT SYSTEM EFFICIENCY MANAGER [id number] Visit REGIONAL [id number] MATERNAL [id number] & CHILD 107 [facility] 2021-05-06 2021-05-06 Transition Royal Camacho [id number] 00:00:00 00:00:00 of Care Supriya Mckeon [id number] [place] [id number] 2021-04-25 2021-05-03 [facility] MartinsDrake REPLACED BY [facility] [id number] 20:06:00 10:30:00 Encounter Maria Isabel Olivares [id number]686 [id number] 2021-03-29 2021-03-29 Routine Akinsipe, [facility] [id number] 12:56:20 13:26:57 Libertad C DEVELOPMENT SYSTEM EFFICIENCY MANAGER [id number] Visit REGIONAL [id number] MATERNAL [id number] & CHILD 107 [facility] 2021-03-15 2021-03-15 Routine Akinsipe, [facility] [id number] 13:06:32 13:45:27 Libertad C DEVELOPMENT SYSTEM EFFICIENCY MANAGER [id number] Visit REGIONAL [id number] MATERNAL [id number] & CHILD 107 [facility] 2021-03-15 2021-03-15 Telephone Akinsipe, [facility] [id number] 00:00:00 00:00:00 Libertad C DEVELOPMENT SYSTEM EFFICIENCY MANAGER [id number] REGIONAL [id number] MATERNAL [id number] & CHILD 107 [facility] Results This patient has no known results.
[2021-05-19 23:36] LABS: Urine Blood 3+ (Negative); Urine Glucose Negative (Negative); Urine Protein 1+ (Negative); Urine Specific Gravity >=1.030 (1.005-1.030)
[2021-05-19 23:41] LABS: Urine Specific Gravity/Preg >1.030 (1.005-1.030)
[2021-05-20 01:36] LABS: Absolute Lymphocytes (CBC) 3.2 K/uL (0.7-4.9); Basophils % 0.5 % (0-1.3); Hematocrit 32.4 % (36.0-45.0); Lymphocytes % 33.2 % (15.3-44.8); MPV 9.5 fL (7.6-11.3); RBC Red Blood Cell Count 3.93 M/uL (3.86-4.86)
[2021-05-20 01:45] LABS: ALT/SGPT 24 U/L (12-78); AST/SGOT 13 U/L (15-37); Albumin 3.4 g/dL (3.4-5.0); Alkaline Phosphatase 94 U/L (45-117); BUN Blood Urea Nitrogen 18 mg/dL (7-18); Bicarbonate 27 mmol/L (21-32); Bilirubin Direct < 0.1 mg/dL (0-0.2); Bilirubin Total 0.3 mg/dL (0.2-1.0); Glucose Level 87 mg/dL (74-106); Lipase 104 U/L (73-393); Protein, Total 7.4 g/dL (6.4-8.2); Sodium Level 146 mmol/L (136-145)
[2021-05-20] MEDS ORDERED: ONDANSETRON 4 MG/2 ML VIAL ONE (01:59)
[2021-05-20] MEDS ORDERED: MORPHINE 4 MG/ML SYR ONE (01:59)
[2021-05-20] MEDS ORDERED: NA CHLORIDE 0.9% 1,000 ML ONE (02:00)
--- NOTE | 2021-05-20 02:49 | EDPHYS ---
Physician Documentation [facility] Name: Vira Silva Age: 25 yrs Sex: Female : 1995 Arrival Date: 05/19/2021 Time: 23:08 Bed 20 Private MD: ED Physician Huseyin Perdomo HPI: 05/20 01:45 This 25 yrs old Female presents to ER via Ambulatory with complaints of pkl Abdominal Pain, Abscess. 01:45 The patient presents with abdominal pain in the lower abdomen. Patient had ovarian tube pkl abscess drained on 05/02/21 at [facility]. Now still having lower pain. 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 - Social history:: Smoking status: Patient denies any tobacco usage or history of. ROS: 05/20 01:45 Eyes: Negative for injury, pain, redness, and discharge, ENT: Negative for injury, pkl pain, and discharge, Neck: Negative for injury, pain, and swelling, Cardiovascular: Negative for chest pain, palpitations, and edema, Respiratory: Negative for shortness of breath, cough, wheezing, and pleuritic chest pain. Abdomen/GI: Positive for abdominal pain, of the right lower quadrant and left lower quadrant. Back: Negative for acute changes. : Negative for urinary symptoms. MS/extremity: Negative for acute changes. Skin: Negative for rash. Neuro: Negative for altered mental status, loss of consciousness. Exam: 01:45 Head/Face: Normocephalic, atraumatic. Eyes: Pupils equal round and reactive to light, pkl extra-ocular motions intact. Lids and lashes normal. Conjunctiva and sclera are non-icteric and not injected. Cornea within normal limits. Periorbital areas with no swelling, redness, or edema. ENT: Nares patent. No nasal discharge, no septal abnormalities noted. Tympanic membranes are normal and external auditory canals are clear. Oropharynx with no redness, swelling, or masses, exudates, or evidence of obstruction, uvula midline. Mucous membranes moist. Neck: Trachea midline, no thyromegaly or masses palpated, and no cervical lymphadenopathy. Supple, full range of motion without nuchal rigidity, or vertebral point tenderness. No Meningismus. Chest/axilla: Normal chest wall appearance and motion. Nontender with no deformity. No lesions are appreciated. Cardiovascular: Regular rate and rhythm with a normal S1 and S2. No gallops, murmurs, or rubs. Normal PMI, no JVD. No pulse deficits. Respiratory: Lungs have equal breath sounds bilaterally, clear to auscultation and percussion. No rales, rhonchi or wheezes noted. No increased work of breathing, no retractions or nasal flaring. 01:45 Abdomen/GI: Bowel sounds: normal, Palpation: soft, moderate abdominal tenderness, in the right lower quadrant and left lower quadrant. 01:45 Back: Exam negative for acute changes. 01:45 Musculoskeletal/extremity: Exam is negative for acute changes. 01:45 Skin: Exam negative for rash. 01:45 Neuro: Orientation: is normal, Mentation: is normal, Cranial nerves: grossly normal, Motor: is normal. Vital Signs: 05/19 23:17 BP 109 / 71; Pulse 73; Resp 18; Temp 97.3; Pulse Ox 99% on R/A; Weight 94.35 kg; Height ca1 5 ft. 1 in. (154.94 cm); Pain 6/10; 05/20 01:00 BP 116 / 68; Pulse 74; Resp 16; Pulse Ox 98% on R/A; ak2 02:34 BP 123 / 64; Pulse 68; Resp 16; Pulse Ox 100% on R/A; ak2 05/19 23:17 Body Mass Index 39.30 (94.35 kg, 154.94 cm) ca1 MDM: 05/19 23:31 Patient medically screened. pkl 05/20 02:44 Data reviewed: vital signs, nurses notes, lab test result(s), radiologic studies, CT pkl scan. ED course: Patient feeling better. Discussed lab and CT Scan results with patient. Advised to follow up with Section Hand in 2 to 3 days, Patient understood instructions. 02:49 Patient medically screened. pkl 05/19 23:36 Order name: Urine Dipstick-Ancillary; Complete Time: 02:01 EDMS 05/19 23:37 Order name: Urine --Ancillary (enter results); Complete Time: 02:01 tt3 05/20 01:10 Order name: Basic Metabolic Panel; Complete Time: 02:01 pkl 05/20 01:10 Order name: CBC with Diff; Complete Time: 02:01 pkl 05/20 01:10 Order name: Hepatic Function; Complete Time: 02:01 pkl 05/20 01:10 Order name: Lipase; Complete Time: 02:01 pkl 05/19 23:37 Order name: Urine Test (obtain specimen); Complete Time: 23:37 tt3 05/20 01:10 Order name: IV Saline Lock pkl 05/20 01:10 Order name: Labs collected and sent pkl 05/20 01:10 Order name: CT Abd/Pelvis - IV Contrast Only pkl Administered Medications: 01:42 Drug: morphine 4 mg Route: IVP; Site: right antecubital; ak2 01:42 Drug: Zofran (Ondansetron) 4 mg Route: IVP; Site: right antecubital; ak2 01:43 Drug: NS 0.9% 1000 ml Route: IV; Rate: 1000 ml; Site: right antecubital; ak2 Disposition Summary: 05/20/21 02:49 Discharge Ordered Location: Home pkl Problem: new pkl Symptoms: have improved pkl Condition: Stable pkl Diagnosis - Pelvic pain. S/P Tubo - Ovarian abscess Drainage, Left ovarian cyst pkl Followup: pkl - With: Nancy Wade MD - When: 2 - 3 days - Reason: Re-evaluation by your physician Discharge Instructions: - Discharge Summary Sheet pkl Forms: - Medication Reconciliation Form pkl - Thank You Letter pkl - Antibiotic Education pkl - Prescription Opioid Use pkl Prescriptions: - Ultram 50 mg Oral Tablet - take 1 tablet by ORAL route every 6 hours As needed; 12 tablet; Refills: 0, pkl Product Selection Permitted Signatures: Dispatcher [employer] Huseyin Dangelo MD MD pkl Celine Kunz RN RN ca1 Christopher Medina tt3 Russ Erickson2
--- NOTE | 2021-05-20 02:49 | ER ---
Nurse's Notes [facility] Name: Vira Silva Age: 25 yrs Sex: Female : 1995 Arrival Date: 05/19/2021 Time: 23:08 Bed 20 Private MD: Diagnosis: Pelvic pain. S/P Tubo - Ovarian abscess Drainage, Left ovarian cyst Presentation: 05/19 23:17 Chief complaint: Patient states: was transferred to [facility] and had an ovarian ca1 tube abscess drained on 05/02, had some pain but was able to manage, yesterday noticed pain came back, also heavy vaginal bleeding since yesterday, denies N/V or fever. Coronavirus screen: Client denies travel out of the [place] in the last 14 days. Ebola Screen: Patient negative for fever greater than or equal to 101.5 degrees Fahrenheit, and additional compatible Ebola Virus Disease symptoms Patient denies exposure to infectious person. Patient denies travel to an Ebola-affected area in the 21 days before illness onset. No symptoms or risks identified at this time. Initial Sepsis Screen: Does the patient meet any 2 criteria? No. Patient's initial sepsis screen is negative. Does the patient have a suspected source of infection? No. Patient's initial sepsis screen is negative. Risk Assessment: Do you want to hurt yourself or someone else? Patient reports no desire to harm self or others. Onset of symptoms was May 19, 2021. 23:17 Method Of Arrival: Ambulatory ca1 23:17 Acuity: SERGIO 3 ca1 Triage Assessment: 23:37 General: Appears in no apparent distress. Behavior is calm, cooperative. Pain: Denies ak2 pain. GI: No deficits noted. 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 - Social history:: Smoking status: Patient denies any tobacco usage or history of. Screenin:26 Abuse screen: Denies threats or abuse. Nutritional screening: No deficits noted. ea Tuberculosis screening: No symptoms or risk factors identified. Fall Risk None identified. Assessment: 23:37 General: Appears in no apparent distress. Neuro: No deficits noted. Cardiovascular: No ak2 deficits noted. Respiratory: No deficits noted. 05/20 01:08 Reassessment: Patient and/or family updated on plan of care and expected duration. Pain ea level reassessed. Provider at bedside updating pt on plan of care. 02:34 Reassessment: Patient and/or family updated on plan of care and expected duration. Pain ak2 level reassessed. Vital Signs: 05/19 23:17 BP 109 / 71; Pulse 73; Resp 18; Temp 97.3; Pulse Ox 99% on R/A; Weight 94.35 kg; Height ca1 5 ft. 1 in. (154.94 cm); Pain 6/10; 05/20 01:00 BP 116 / 68; Pulse 74; Resp 16; Pulse Ox 98% on R/A; ak2 02:34 BP 123 / 64; Pulse 68; Resp 16; Pulse Ox 100% on R/A; ak2 05/19 23:17 Body Mass Index 39.30 (94.35 kg, 154.94 cm) ca1 ED Course: 05/19 23:08 Patient arrived in ED. bp1 23:20 Triage completed. ca1 23:21 Arm band placed on. ca1 23:26 Patient has correct armband on for positive identification. Bed in low position. Call ea light in reach. Side rails up X 1. 23:31 Huseyin Perdomo MD is Attending Physician. pkl 23:32 Russ Erickson is Primary Nurse. ak2 05/20 01:55 CT Abd/Pelvis - IV Contrast Only In Process Unspecified. EDMS 02:46 Nancy Wade MD is Referral Physician. pkl Administered Medications: 01:42 Drug: morphine 4 mg Route: IVP; Site: right antecubital; ak2 01:42 Drug: Zofran (Ondansetron) 4 mg Route: IVP; Site: right antecubital; ak2 01:43 Drug: NS 0.9% 1000 ml Route: IV; Rate: 1000 ml; Site: right antecubital; ak2 Outcome: 02:49 Discharge ordered by . pkl 02:54 Discharged to home ambulatory. ak2 02:54 Condition: good 02:54 Discharge instructions given to patient. 02:54 Patient left the ED. ak2 Signatures: Dispatcher [employer] EDMS Huseyin Perdomo, MD MD pkl Rocha, Court, RN RN kush Kunz, SCOTTIE Berger RN Lisa Catherine Anthony ak2
[2021-05-20 03:09] VITALS: TEMP 97.3
[2021-05-20 03:21] VITALS: BP 123/64; O2SAT 100
--- NOTE | 2021-05-20 12:08 | RAD REPORT ---
EXAM DESCRIPTION: CT - Abdomen Pelvis W Contrast - 05/20/2021 2:42 am CLINICAL HISTORY: The patient is 25 years old and is Female; ABD PAIN TECHNIQUE: Axial computed tomography images of the abdomen and pelvis with intravenous contrast. S agittal and coronal reformatted images were created and reviewed. This CT exam was performed using one or more of the following dose reduction techniques: automated exposure control, adjustment of t he mA and/or kV according to patient size, and/or use of iterative reconstruction technique. COMPARISON: CT abdomen and pelvis April 25, 2021. FINDINGS: Lung bases: Unremarkable. No mass. No consolidation. ABDOMEN: Liver: Unremarkable. No mass. Gallbladder and bile ducts: The gallbladder is surgically absent. No ductal dilation. Pancreas: Unremarkable. No mass. No ductal dilation. Spleen: Unremarkable. No splenomegaly. Adrenals: Unremarkable. No mass. Kidneys and ureters: Unremarkable. No solid mass. No hydronephrosis. Stomach and bowel: Scattered colonic diverticula. No obstruction. No mucosal thickening. PELVIS: Appendix: No findings to suggest acute appendicitis. Bladder: Unremarkable. No mass. Reproductive: The irregular 4 cm low density left adnexal mass seen on the prior exam is no long er visualized. There is some residual fat stranding in the left adnexal region and left paracolic gut ter. There is a 4.2 x 3.2 x 4.2 cm simple left ovarian/adnexal cyst which is new compared to the prior exam. ABDOMEN and PELVIS: Intraperitoneal space: Unremarkable. No free air. No significant fluid collection. Bones/joints: No acute fracture. No dislocation. Soft tissues: Unremarkable. Vasculature: Unremarkable. No abdominal aortic aneurysm. Lymph nodes: Unremarkable. No enlarged lymph nodes. IMPRESSION: 1. The irregular 4 cm low density left adnexal mass seen on the prior exam is no longe r visualized. There is some residual fat stranding in the left adnexal region and left paracolic gutt er. 2. There is a 4.2 x 3.2 x 4.2 cm simple left ovarian/adnexal cyst which is new compared to the prio r exam. Electronically signed by: Pablo Dudley MD 05/20/2021 2:34 AM CDT Due to temporary technical issues with the PACS/Fluency reporting system, reports are being signed by the in house radiologist without review as a courtesy to ensure prompt reporting. The interpreting r adiologist is fully responsible for the content of the report.
== END 2021-05-20 02:54 | disposition home or self-care (01) ==
LOC: ER 23:03
DX: R10.2 Pelvic and perineal pain (principal); Z98.890 Other specified postprocedural states
CPT/HCPCS: 85025; 80048; 36415; 81025; 80076; 81003; 83690; 74177; 96375; 96374; 99283; Q9967; J7030; J2405

== ENCOUNTER 2022-07-23 21:01 | Emergency (ER) | payer OTHER ==
--- OUTSIDE RECORDS SUMMARY | 2022-07-23 21:05 | XMS REPORT | Continuity of Care Document ---
:1995 Author Organization [facility] t Address [address] [place] [address] Care Team Providers Name Role Phone LIBERTAD ANDERSON Primary Care Physician Unavailable JAN YATES Attending Clinician Unavailable KO KELLEY Attending Clinician Unavailable Jan Yates MD Attending Clinician Doctor Unassigned, [place] Attending Clinician Unavailable Uziel Leonard Attending Clinician Doug RUBIN, Supriya Mayes Attending Clinician Unavailable Drake Martins MD Attending Clinician Maria Isabel Olivares MD Attending Clinician Libertad Urrutia Attending Clinician [phone] Maria Isabel Olivares MD Admitting Clinician Payers Payer Name Policy Type Policy Number Effective Date Expiration Date [facility] [id number] 2016 CHOICE MEDICAID 00:00:00 Problems Condition Condition Condition Status Onset Resolution Last Treating Co mments Source Name Details Category Date Date Treatment Clinician Date Morbid Morbid Disease Active Univers obesity obesity 6-15 ity of with [place] mass index 00 Me dical of of [place] 40.0-49.9 40.0-49.9 Rubella Rubella Disease Active 2019-11 Overview: Univ ers non-immune non-immune 0-30 Formattin ity of status, status, 00:00: g of this [place] antepartum antepartum 00 note Me dical might be Branch different from the original. Address pp Maternal Maternal Disease Active 2019-11 Overview: Un fortunato varicella, varicella, 0-30 Formattin ity of non-immune non-immune 00:00: g of this [place] 00 note Medical might be Branch different from the original. Address pp Multiparit Multiparit Disease Active 2019-11 U nivers y y 0-29 ity of 00:00: [address] Allergies, Adverse Reactions, Alerts Allergy Allergy Status Severity Reaction(s) Onset Inactive Treating Comm ents Source Name Type Date Date Clinician NO KNOWN Drug Active Univers ALLERGIE Class ity of S [facility] Social History Social Habit Start Date Stop Date Quantity Comments Source Alcohol intake 2021-09-20 2021-09-20 Current [facility] 00:00:00 00:00:00 non-drinker of [facility] alcohol Hope (finding) Tobacco use and 2015-05-16 2015-05-16 Never used Universit y of exposure 00:00:00 00:00:00 [facility] Sex Assigned At [birth year] Universit y of 00:00:00 00:00:00 [facility] Smoking Status Start Date Stop Date Source Never smoker [facility] Medications Ordered Filled Start Stop Current Ordering Indication Dosage Frequency Signature Comments Components Source Medication Medication Date Date Medication? Clinician (SIG) Name Name &lt 0 No 500 06-21 00:00: 00 TAKE 1 0 No 500 TABLET BY 8- MOUTH TWICE 00:00: DAILY 00 &lt 2021-0 No 8-06 00:00: 00 &lt 2021-0 No 150 8- 00:00: 00 TAKE 1 2021-0 No 150 TABLET BY 8-06 MOUTH ON 00:00: DAY ONE 00 THEN REPEAT DOSE IN 3 DAYS Diflucan 2020-11 No 1mg 150 mg 2-13 tablet 00:00: 00 metronidazo 2020-11 No 1mg le 500 mg 2-13 tablet 00:00: 00 Augmentin 2020-11 No 1mg 875 mg-125 1-11 mg tablet 00:00: 00 No known 2020-11 No Univers medications 11-20 ity of 09:05: [address] Nexplanon 0 No 1mg 68 mg 7-23 subdermal 00:00: implant 00 Flagyl 500 2020-0 No 1mg mg tablet 04-24 00:00: 00 Augmentin 2020-0 No 1mg 875 mg-125 6-04 mg tablet 00:00: 00 pantoprazol 2017-0 No 1mg e 40 mg 9-12 tablet,rocael 00:00: yed release 00 dicyclomine 2017-0 No 1mg 10 mg 9-12 capsule 00:00: 00 Immunizations Ordered Filled Immunization Date Status Comments Sourc e Immunization Name Name TDAP 2021-01-25 Completed [facility] 00:00:00 [facility] Td 2013-06-16 Completed [facility] 00:00:00 [facility] Vital Signs Vital Name Observation Time Observation Value Comments Source Systolic blood 2021-09-20 13:32:00 98 mm[Hg] Univer sity [facility] Diastolic blood 2021-09-20 13:32:00 67 [facility]Hg[facility] rate 2021-09-20 13:32:00 92 /min [facility] Respiratory rate 2021-09-20 13:32:00 18 /min [facility] Body height 2021-09-20 13:32:[address] [facility] Body weight 2021-09-20 13:32:[address] [facility] BMI 2021-09-20 13:32:00 42.76 kg/m2 [facility] BP Systolic 2022-06-21 11:47:00 117 mm[Hg] BP Diastolic 2022-06-21 11:47:00 79 mm[Hg] Weight Measured 2022-06-21 11:47:00 215.40 pounds Height Measured 2022-06-21 11:47:00 61.00 inches Body Temperature 2022-06-21 11:47:00 98.70 degrees Heart Rate 2022-06-21 11:47:00 81.00 /min Respiratory Rate 2022-06-21 11:47:00 21.00 /min BP Systolic 2021-11-13 09:39:00 BP Diastolic 2021-11-13 09:39:00 Weight Measured 2021-11-13 09:39:00 230.00 pounds Height Measured 2021-11-13 09:39:00 61.00 inches Body Temperature 2021-11-13 09:39:00 Heart Rate 2021-11-13 09:39:00 Respiratory Rate 2021-11-13 09:39:00 BP Systolic 2021-10-28 09:35:00 107 mm[Hg] BP Diastolic 2021-10-28 09:35:00 67 mm[Hg] Weight Measured 2021-10-28 09:35:00 218.60 pounds Height Measured 2021-10-28 09:35:00 61.00 inches Body Temperature 2021-10-28 09:35:00 98.20 degrees Heart Rate 2021-10-28 09:35:00 87.00 /min Respiratory Rate 2021-10-28 09:35:00 21.00 /min BP Systolic 2021-06-14 14:07:00 115 mm[Hg] BP Diastolic 2021-06-14 14:07:00 75 mm[Hg] Weight Measured 2021-06-14 14:07:00 211.80 pounds Height Measured 2021-06-14 14:07:00 61.00 inches Body Temperature 2021-06-14 14:07:00 98.20 degrees Heart Rate 2021-06-14 14:07:00 90.00 /min Respiratory Rate 2021-06-14 14:07:00 BP Systolic 2021-06-07 14:30:00 107 mm[Hg] BP Diastolic 2021-06-07 14:30:00 69 mm[Hg] Weight Measured 2021-06-07 14:30:00 211.60 pounds Height Measured 2021-06-07 14:30:00 61.00 inches Body Temperature 2021-06-07 14:30:00 98.10 degrees Heart Rate 2021-06-07 14:30:00 94.00 /min Respiratory Rate 2021-06-07 14:30:00 BP Systolic 2021-05-21 15:46:00 107 mm[Hg] BP Diastolic 2021-05-21 15:46:00 72 mm[Hg] Weight Measured 2021-05-21 15:46:00 213.60 pounds Height Measured 2021-05-21 15:46:00 61.00 inches Body Temperature 2021-05-21 15:46:00 98.40 degrees Heart Rate 2021-05-21 15:46:00 72.00 /min Respiratory Rate 2021-05-21 15:46:00 16.00 /min BP Systolic 2021-04-19 15:18:00 106 mm[Hg] BP Diastolic 2021-04-19 15:18:00 64 mm[Hg] Weight Measured 2021-04-19 15:18:00 208.20 pounds Height Measured 2021-04-19 15:18:00 61.00 inches Body Temperature 2021-04-19 15:18:00 98.90 degrees Heart Rate 2021-04-19 15:18:00 74.00 /min Respiratory Rate 2021-04-19 15:18:00 18.00 /min BP Systolic 2020-03-08 13:01:00 119 mm[Hg] BP Diastolic 2020-03-08 13:01:00 82 mm[Hg] Weight Measured 2020-03-08 13:01:00 221.80 pounds Height Measured 2020-03-08 13:01:00 61.00 inches Body Temperature 2020-03-08 13:01:00 98.10 degrees Heart Rate 2020-03-08 13:01:00 102.00 /min Respiratory Rate 2020-03-08 13:01:00 17.00 /min BP Systolic 2020-03-07 13:17:00 142 mm[Hg] BP Diastolic 2020-03-07 13:17:00 85 mm[Hg] Weight Measured 2020-03-07 13:17:00 223.20 pounds Height Measured 2020-03-07 13:17:00 61.00 inches Body Temperature 2020-03-07 13:17:00 98.40 degrees Heart Rate 2020-03-07 13:17:00 101.00 /min Respiratory Rate 2020-03-07 13:17:00 17.00 /min Height Measured 2018-07-28 14:47:00 61.00 inches Body Temperature 2018-07-28 14:47:00 98.40 degrees Heart Rate 2018-07-28 14:47:00 100.00 /min Respiratory Rate 2018-07-28 14:47:00 16.00 /min BP Systolic 2018-07-28 14:47:00 115 mm[Hg] BP Diastolic 2018-07-28 14:47:00 75 mm[Hg] Weight Measured 2018-07-28 14:47:00 209.60 pounds Procedures This patient has no known procedures. Plan of Care Planned Activity Planned Date Details Comments Source Goal Plan of Care Note [code = 48340-0] Goal Plan of Care Note [code = 94552-2] Goal Plan of Care Note [code = 37143-5] Goal Plan of Care Note [code = 70458-0] Goal Plan of Care Note [code = 61968-8] Goal Plan of Care Note [code = 17704-1] Goal Plan of Care Note [code = 13058-4] Goal Plan of Care Note [code = 58292-1] Goal Plan of Care Note [code = 03642-4] Goal Plan of Care Note [code = 01440-4] Goal Plan of Care Note [code = 94070-7] Goal Plan of Care Note [code = 13322-7] Goal Plan of Care Note [code = 10607-5] Goal Plan of Care Note [code = 29789-6] Goal Plan of Care Note [code = 15033-7] Goal Plan of Care Note [code = 93067-4] Goal Plan of Care Note [code = 03830-9] Goal Plan of Care Note [code = 84854-1] Goal Plan of Care Note [code = 04198-5] Goal Plan of Care Note [code = 31596-2] Goal Plan of Care Note [code = 27832-8] Goal Plan of Care Note [code = 34773-2] Goal Plan of Care Note [code = 46616-0] Goal Plan of Care Note [code = 87823-6] Goal Plan of Care Note [code = 45881-8] Goal Plan of Care Note [code = 34046-1] Goal Plan of Care Note [code = 31182-3] Goal Plan of Care Note [code = 43592-3] Goal Plan of Care Note [code = 35875-4] Goal Plan of Care Note [code = 07249-6] Goal Plan of Care Note [code = 80142-5] Goal Plan of Care Note [code = 51344-6] Goal Plan of Care Note [code = 18214-6] Encounters Start End Encounter Admission Attending Care Care Encounter Source Date/Time Date/Time Type Type Clinicians Facility Department ID 2022-06-21 2022-06-21 Outpatient [id number] 00:00:00 00:00:00 Visit [id number] 2022-03-21 2022-03-21 Outpatient JAN MCLEAN [facility] [id number] Univers 09:30:00 09:30:00 ity [facility] 2021-12-11 2021-12-11 Outpatient R ALLIE [facility] [id number] Univers 10:45:00 10:45:00 KO [id number] ity o f [facility] 2021-12-11 2021-12-11 Outpatient Cathy KELLEY [facility] [id number] Univers 10:45:00 10:45:00 KO ity o f [facility] 2021-09-20 2021-09-20 Outpatient R JAN YATES [facility] [id number] Univers 08:30:00 09:07:04 ity [facility] 2021-09-20 2021-09-20 Office Jan Yates [facility] [id number] Univers 08:23:27 09:07:04 Visit Orion QURESHI 350.1.13.10 it y of WOMEN'S 4.2.7.2.686 [facility] [id number] [place] [address] [place] 2021-05-15 2021-05-15 Orders Doctor FER [id number] 00:00:00 00:00:00 Only Unassigned, SUZY 350.1.13.10 [place] [facility] 4.2.7.2.686 [id number] 2021-05-08 2021-05-08 [facility] [id number] 15:10:42 15:39:26 Roshunda R JUKEBOX ROUTEMAN 350.1.13.10 Visit [facility] 4.2.7.2.686 MATERNAL [id number] & CHILD 107 [facility] 2021-05-06 2021-05-06 Transition Royal Camacho [id number] 00:00:00 00:00:00 of Care Supriya Mckeon 350.1.13.10 [place] 4.2.7.2.686 [id number] 2021-04-25 2021-05-03 [facility] MaritnsDrake FER 1.2.8 [id number] 20:06:00 10:30:00 Encounter Maria Isabel Olivares 350[address].13.[address] [id number] 2021-03-29 2021-03-29 Routine [place], [facility] [id number] 12:56:20 13:26:57 Libertad C [employer] 350.1.13.10 Visit [facility] 4.2.7.2.686 MATERNAL [id number] & CHILD 107 [facility] 2021-03-15 2021-03-15 Routine [place], [facility] [id number] 0000 13:06:32 13:45:27 Libertad C [employer] ROUTEMAN 350.1.13.10 Visit [facility] 4.2.7.2.686 MATERNAL [id number] & CHILD 107 [facility] 2021-03-15 2021-03-15 Telephone [place], [facility] 1.2.840.114 [id number] 00:00:00 00:00:00 Libertad C [employer] ROUTEMAN 350.1.13.10 [facility] 4.2.7.2.686 MATERNAL [id number] & CHILD 107 [facility] Results Test Description Test Time Test Comments Results Result Comments Source CT/NG, NAAT, URINE 2022-06-24 12:53:39 Test Item Value Reference Range Interpretation Comme nts GONORRHEA, NAAT NEGATIVE NEGATIVE IMPORTA NT NOTICE: SEE ANNOUNCEMENT AT (test code = [email or web address] Note: 97767) Assay methodolo gy is nucleic acid amplification by transcriptio n mediated amplification (TMA) utilizing the A ptima Combo 2 Assay. CHLAMYDIA, NAAT NEGATIVE NEGATIVE IMPORTA NT NOTICE: SEE ANNOUNCEMENT AT (test code = [email or web address]/RocheCobasUrineKit Note: 11293) Assay methodolo gy is nucleic acid amplification by transcriptio n mediated amplification (TMA) utilizing the A ptima Combo 2 Assay. UNLESS OTHERWISE INDIC ATED, ALL TESTING PERFORMED [facility] PATH [facility] CITYPrime [employer] Services, [employer] [address] [place] [address] SOFTWARE VALIDATION TECHNICIAN: ELLE HERNANDEZ M.D. [place] NUMBER [id number] [place] [id number] CULTURE, [id number] 11:51:43SPECIMEN NUMBER: [id number] CULTURE, URINE SPECIMEN NUMBER: [id number] SPECIMEN COMMENT: URINE SOURCE:URINE REPORT STATUS: FINAL ISOLATE NUMBER 1: ORGANISM: 06/23/2022 >100,000 CFU/ML GRAM NEGATIVE BA CILLI IDENTIFICATION: 06/24/2022 ESCHERICHIA COLI E. COLI AMOXICILLIN/CA SENSITIVE <=8/4AMPICILLIN SENSITIVE <=8CEFAZOLIN SENSITIVE <=2CEFTRIAXONE SENSITIVE <=1CIPROFLOXACIN SENSITIVE <=1LEVOFLOXACIN SENSITIVE <=2NITROFURANTOIN SENSITIVE <=32PIP/TAZOBAC SENSITIVE <=16TETRACYCLINE SENSITIVE <=4TOBRAMYCIN SENSITIVE <=4TRIMETH/SULFA SENSITIVE <=2/38 NOTE: NUMBERS DISPLAYED REPRESENT MINIMUM INHIBITORY CONCENTRATION (ALEXA) WHICH IS EXPRESSED IN MCG/ML. SARS-CoV-2 (COVID-19), RT-PCR/[id number] 16:30:16 Test Item Value Reference Interpretation Comments Range SARS-CoV-2 POSITIVE SEE NOTE A SARS-CoV-2 RNA INTERPRETATION DETECTEDPosit oscar results (test code = [place] indicative of the [address]) presence of FRANKIE S-CoV-2 RNA;clinical co rrelation with patient hi story and other diagnosticinfor mation is necessary to de termine patient infecti on status.Positive results do not rule out bacterial infec tion or co-infectionwit h other viruses. Positi ve and negative predic tive values oftestin g are highly dependen t on prevalence. SOURCE (test code NASOPHARYNGEAL Note: M ethodology is = 22277) Jessica Michael [place] l-Time RT-PCR. The exp ected result or refer ence range is NEGATI VE (Not Detected). For more information reg arding COVID-19 testin g to include clinicalinforma tion, methodology det ail, intended use, F DA authorization andrecommended fact sheets for greta ents or healthcare prov iders, see [employer] Announcement: S ARS-CoV-2 (COVID-19) by N AAT at URL below (note ,fact sheets are prov ided by method given in report:https:// www.IdenIvecom/clinicia ns/client -communications / Alternatively, see downloadable PD F fact sheet at:https://www. SwipeToSpin om/MIVGM-80-ST- PCR UNLESS OTHERWIS E INDICATED, ALL TESTING PERFORMED [facility]ENTERMob[facility] Communications Ltd, INC[employer] [address] [place] [address] 4 LABORATORY DIRE CTOR: ELLE HERNANDEZ M.D. CLIA NUMBER [id number] [place] [id number] SARS-CoV-2 (COVID-19) by RT-PCR (HIGH RISK)2021-11-24 00:00:00 Test Item Value Reference Range Interpretation Comments SARS-CoV-2 INTERPRETATION POSITIVE (test code = 42291) SOURCE (test code = 83040) NASOPHARYNGEAL [id number] 00:00:00 Test Item Value Reference Range Interpretation Comments RPR RESULT (test code = NON-REACTIVE 3501) RPR TITER (test code = 3500) NOT INDIC. TITER ACUTE HEPATITIS [id number] 00:00:00 Test Item Value Reference Range Interpretation Comments HEPATITIS A IgM (test code = NON-REACTIVE 25494) HEPATITIS B CORE IgM (test code NON-REACTIVE = 4944) HEPATITIS B SURF AG (test code = NON-REACTIVE 6779) HEPATITIS C ANTIBODY (test code NON-REACTIVE = 0878) INTERPRETATION HEPATITIS A: (NOTE) (test code = 2552) INTERPRETATION HEPATITIS B: (NOTE) (test code = 82038) INTERPRETATION HEPATITIS C: (NOTE) (test code = 28610) VAGINAL PATHOGENS DNA [id number] 00:00:00 Test Item Value Reference Range Interpretation Comments THALIA SPECIES (test code = ) POSITIVE G. VAGINALIS (test code = ) POSITIVE T. VAGINALIS (test code = ) NEGATIVE GC AND CHLAMYDIA, AMPLIFIED, [id number] 00:00:00 Test Item Value Reference Range Interpretation Comments GONORRHEA, NAAT (test code = 71240) NEGATIVE CHLAMYDIA, NAAT (test code = 83643) NEGATIVE HIV AB/AG COMBO RFLX [id number] 00:00:00 Test Item Value Reference Range Interpretation Comments HIV 1/2 4TH GEN, RFLX CONF (test NON-REACTIVE code = 3514) [id number] 00:00:00 Test Item Value Reference Range Interpretation Comments RPR RESULT (test code = NON-REACTIVE 3501) RPR TITER (test code = 3500) NOT INDIC. TITER CULTURE, [id number] 00:00:00 Test Item Value Reference Range Interpretation Comments CULTURE, URINE (test SPECIMEN NUMBER: code = 14722) [id number] VAGINAL PATHOGENS DNA [id number] 00:00:00 Test Item Value Reference Range Interpretation Comments THALIA SPECIES (test code = ) NEGATIVE G. VAGINALIS (test code = ) POSITIVE T. VAGINALIS (test code = ) NEGATIVE CULTURE, [id number] 00:00:00 Test Item Value Reference Range Interpretation Comments CULTURE, URINE (test SPECIMEN NUMBER: code = 06000) [id number] COMPREHENSIVE METABOLIC [id number] 00:00:00 Test Item Value Reference Range Interpretation Comments GLUCOSE (test code = 2217) 93 MG/DL BUN (test code = 2208) 21 MG/DL CREATININE (test code = 2214) 0.78 MG/DL eGFR AMER. (test code 123 ML/MIN/1.73 = 38585) eGFR NON- AMER. (test 106 ML/MIN/1.73 code = 21098) CALC BUN/CREAT (test code = 27 RATIO 2235) SODIUM (test code = 2231) 144 MEQ/L POTASSIUM (test code = 2228) 4.4 MEQ/L CHLORIDE (test code = 2215) 104 MEQ/L CARBON DIOXIDE (test code = 24 MEQ/L 2205) CALCIUM (test code = 2209) 9.6 MG/DL PROTEIN, TOTAL (test code = 8.2 G/DL 2228) ALBUMIN (test code = 2201) 4.4 G/DL CALC GLOBULIN (test code = 3.8 G/DL 0) CALC A/G RATIO (test code = 1.2 RATIO 2233) BILIRUBIN, TOTAL (test code = 0.3 MG/DL 2206) ALKALINE PHOSPHATASE (test 130 U/L code = 2204) AST (test code = 2218) 17 U/L ALT (test code = 2219) 21 U/L CBC W/AUTO [id number] 00:00:00 Test Item Value Reference Range Interpretation Comments WBC (test code = 1001) 12.5 K/UL RBC (test code = 1002) 5.10 M/UL HEMOGLOBIN (test code = 1003) 13.6 G/DL HEMATOCRIT (test code = 1004) 41.5 % MCV (test code = 1005) 81.4 fL MCH (test code = 1006) 26.7 PG MCHC (test code = 1007) 32.8 G/DL RDW (test code = 1038) 13.1 % NEUTROPHILS (test code = 1008) 72.8 % LYMPHOCYTES (test code = 1010) 22.2 % MONOCYTES (test code = 1011) 3.3 % EOSINOPHILS (test code = 1012) 1.0 % BASOPHILS (test code = 1013) 0.3 % IMMATURE GRANULOCYTES (test 0.4 % code = 1036) NUCLEATED RBCS (test code = 0.0 /100WBC'S 1065) PLATELET COUNT (test code = 450 K/UL 1015) ABSOLUTE NEUTROPHILS (test code 9.13 K/UL = 1066) ABSOLUTE LYMPHOCYTES (test code 2.78 K/UL = 1067) ABSOLUTE MONOCYTES (test code = 0.41 K/UL 1068) ABSOLUTE EOSINOPHILS (test code 0.13 K/UL = 1040) ABSOLUTE BASOPHILS (test code = 0.04 K/UL 1069) ABS IMMATURE GRANULOCYTES (test 0.05 K/UL code = 1020) ABS NUCLEATED RBCS (test code = 0.00 K/UL 51258) CBC W/AUTO [id number] 00:00:00 Test Item Value Reference Range Interpretation Comments WBC (test code = 1001) 12.5 K/UL RBC (test code = 1002) 5.10 M/UL HEMOGLOBIN (test code = 1003) 13.6 G/DL HEMATOCRIT (test code = 1004) 41.5 % MCV (test code = 1005) 81.4 fL MCH (test code = 1006) 26.7 PG MCHC (test code = 1007) 32.8 G/DL RDW (test code = 1038) 13.1 % NEUTROPHILS (test code = 1008) 72.8 % LYMPHOCYTES (test code = 1010) 22.2 % MONOCYTES (test code = 1011) 3.3 % EOSINOPHILS (test code = 1012) 1.0 % BASOPHILS (test code = 1013) 0.3 % IMMATURE GRANULOCYTES (test 0.4 % code = 1036) NUCLEATED RBCS (test code = 0.0 /100WBC'S 1065) PLATELET COUNT (test code = 450 K/UL 1015) ABSOLUTE NEUTROPHILS (test code 9.13 K/UL = 1066) ABSOLUTE LYMPHOCYTES (test code 2.78 K/UL = 1067) ABSOLUTE MONOCYTES (test code = 0.41 K/UL 1068) ABSOLUTE EOSINOPHILS (test code 0.13 K/UL = 1040) ABSOLUTE BASOPHILS (test code = 0.04 K/UL 1069) ABS IMMATURE GRANULOCYTES (test 0.05 K/UL code = 1020) ABS NUCLEATED RBCS (test code = 0.00 K/UL 92190) [id number] 00:00:00 Test Item Value Reference Range Interpretation Comments LIPASE (test code = 8) 21 U/L [id number] 00:00:00 Test Item Value Reference Range Interpretation Comments LIPASE (test code = 2058) 21 U/L [id number] 00:00:00 Test Item Value Reference Range Interpretation Comments AMYLASE (test code = 2205) 53 U/L COMPREHENSIVE METABOLIC [id number] 00:00:00 Test Item Value Reference Range Interpretation Comments GLUCOSE (test code = 2217) 75 MG/DL BUN (test code = 2208) 12 MG/DL CREATININE (test code = 2214) 0.56 MG/DL eGFR AMER. (test code 154 ML/MIN/1.73 = 26280) eGFR NON- AMER. (test 133 ML/MIN/1.73 code = 67554) CALC BUN/CREAT (test code = 21 RATIO 2235) SODIUM (test code = 2231) 141 MEQ/L POTASSIUM (test code = 2228) 4.3 MEQ/L CHLORIDE (test code = 2215) 103 MEQ/L CARBON DIOXIDE (test code = 23 MEQ/L 2205) CALCIUM (test code = 2209) 10.1 MG/DL PROTEIN, TOTAL (test code = 7.9 G/DL 2228) ALBUMIN (test code = 220) 4.6 G/DL CALC GLOBULIN (test code = 3.3 G/DL 2239) CALC A/G RATIO (test code = 1.4 RATIO 2233) BILIRUBIN, TOTAL (test code = 0.4 MG/DL 2206) ALKALINE PHOSPHATASE (test 92 U/L code = 2204) AST (test code = 2218) 15 U/L ALT (test code = 2219) 14 U/L LIPID [id number] 00:00:00 Test Item Value Reference Range Interpretation Comments CHOLESTEROL (test code = 2210) 152 MG/DL TRIGLYCERIDES (test code = 2232) 86 MG/DL HDL CHOLESTEROL (test code = 2220) 37 MG/DL CALC LDL CHOL (test code = 2237) 98 MG/DL RISK RATIO LDL/HDL (test code = 2.64 RATIO 2238)
--- NOTE | 2022-07-24 00:46 | EDPHYS ---
Physician Documentation [facility] Name: Vira Silva Age: 26 yrs Sex: Female : 1995 Arrival Date: 07/23/2022 Time: 21:04 Bed 9 Private MD: ED Physician Baljit Baig HPI: 07/24 00:44 This 26 yrs old Female presents to ER via Ambulatory with complaints of pm1 Headache, Congestion, Nausea. 00:44 The patient or guardian reports cough, flu symptoms. Onset: The symptoms/episode pm1 began/occurred today. Severity of symptoms: in the emergency department the symptoms are unchanged. Modifying factors: The symptoms are alleviated by nothing, the symptoms are aggravated by nothing. Associated signs and symptoms: Pertinent positives: fever, rhinorrhea, sore throat, Pertinent negatives: chest pain, ear ache, shortness of breath. The patient has not experienced similar symptoms in the past. The patient has not recently seen a physician. her children with similar symptoms for the past week. They tested negative for covid, flu and strep. 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 - Social history:: Smoking status: Reported history of juuling and/or vaping. ROS: 07/24 00:44 Eyes: Negative for injury, pain, redness, and discharge. pm1 Cardiovascular: Negative for chest pain, palpitations, and edema. Abdomen/GI: Negative for abdominal pain, nausea, vomiting, diarrhea, and constipation, Back: Negative for injury and pain, MS/Extremity: Negative for injury and deformity, Skin: Negative for injury, rash, and discoloration. Constitutional: Positive for fever. ENT: Positive for rhinorrhea, sore throat, Negative for ear pain. Respiratory: Positive for cough, Negative for shortness of breath. Neuro: Positive for headache, Negative for dizziness, numbness, tingling. All other systems are negative. Exam: 00:44 Constitutional: This is a well developed, well nourished patient who is awake, alert, pm1 and in no acute distress. Head/Face: Normocephalic, atraumatic. 00:44 Back: No spinal tenderness. No costovertebral tenderness. Full range of motion. Skin: Warm, dry with normal turgor. Normal color with no rashes, no lesions, and no evidence of cellulitis. MS/ Extremity: Pulses equal, no cyanosis. Neurovascular intact. Full, normal range of motion. 00:44 ENT: Exam is negative for acute changes, External ear(s): are unremarkable, Ear canal(s): are normal, TM's: are normal, Mouth: no acute changes, Lips: normal, moist, Oral mucosa: normal, pink and intact, moist. 00:44 Cardiovascular: Exam negative for acute changes, Rate: normal, Rhythm: regular, Pulses: no pulse deficits are appreciated, Heart sounds: normal. 00:44 Respiratory: Exam negative for acute changes, respiratory distress, shortness of breath, Breath sounds: are clear throughout. 00:44 Neuro: Exam negative for acute changes, Orientation: is normal, Mentation: is normal, Motor: is normal, moves all fours. Vital Signs: 07/23 21:16 BP 124 / 80; Pulse 115; Resp 20; Temp 98.5; Pulse Ox 100% ; Weight 97.52 kg; Height 5 kb3 ft. 1 in. (154.94 cm); Pain 8/10; 07/24 00:20 BP 124 / 69; Pulse 88; Resp 18; Pulse Ox 98% on R/A; oe 07/23 21:16 Body Mass Index 40.62 (97.52 kg, 154.94 cm) kb3 MDM: 07/23 21:21 Patient medically screened. pm1 07/24 00:44 Data reviewed: vital signs. Data interpreted: Pulse oximetry: on room air is 98 %. pm1 Interpretation: normal. Counseling: I had a detailed discussion with the patient and/or guardian regarding: the historical points, exam findings, and any diagnostic results supporting the discharge/admit diagnosis, lab results, the need for outpatient follow up, to return to the emergency department if symptoms worsen or persist or if there are any questions or concerns that arise at home. 07/23 21:31 Order name: Flu; Complete Time: 00:52 pm1 07/23 21:31 Order name: Strep; Complete Time: 00:06 pm1 07/23 21:33 Order name: Influenza Screen (A ; Complete Time: 00:06 EDMS 07/23 23:37 Order name: Throat Culture EDMS Administered Medications: 01:20 CANCELLED (Physician Discretion): Ketorolac 60 mg IM once pm1 01:21 Drug: Decadron (dexamethasone) 10 mg Route: IM; Site: left deltoid; vc1 01:21 Drug: Ketorolac 30 mg Route: IM; Site: right deltoid; vc1 Disposition: 03:19 Co-signature as Attending Physician, Baljit Baig MD. rn Disposition Summary: 07/24/22 00:45 Discharge Ordered Location: Home pm1 Problem: new pm1 Symptoms: have improved pm1 Condition: Stable pm1 Diagnosis - Acute upper respiratory infection, unspecified pm1 Followup: pm1 - With: Emergency Department - When: As needed - Reason: Worsening of condition Followup: pm1 - With: Private Physician - When: 2 - 3 days - Reason: Recheck today's complaints, Continuance of care, Re-evaluation by your physician Discharge Instructions: - Discharge Summary Sheet pm1 - Upper Respiratory Infection, Adult pm1 Forms: - Medication Reconciliation Form pm1 - Thank You Letter pm1 - Antibiotic Education pm1 - Prescription Opioid Use pm1 Prescriptions: - Guaifenesin AC 10-100 mg/5 mL Oral Liquid - take 10 milliliters by ORAL route every 4 hours As needed; 240 milliliter; pm1 Refills: 0, Product Selection Permitted Signatures: Dispatcher [employer] EDVA Baljit Baig MD MD rn Marinas, Patrick, PHYSICAL SCIENCE TECHNICIAN PHYSICAL SCIENCE TECHNICIAN pm1 Vira Kirk RN RN vc1 Shasta Crystal, RN RN kb3 Corrections: (The following items were deleted from the chart) 07/23 21:18 21:18 Home Meds: Amoxicillin Oral; kb3 kb3 21:18 21:18 Home Meds: ibuprofen 200 mg Oral cap 1 cap every 4-6 hours; kb3 kb3 07/24 01:20 01:20 Ketorolac 60 mg IM once ordered. pm1 pm1
--- NOTE | 2022-07-24 00:46 | ER ---
Nurse's Notes [facility] Name: Vira Silva Age: 26 yrs Sex: Female : 1995 Arrival Date: 07/23/2022 Time: 21:04 Bed 9 Private MD: Diagnosis: Acute upper respiratory infection, unspecified Presentation: 07/23 21:16 Chief complaint: Patient states: PT reports general malaise, PRICE, congestion, cough, kb3 sore throat since last night. Denies fever. Coronavirus screen: Vaccine status: Patient reports receiving the 2nd dose of the covid vaccine. Client denies travel out of the [place] in the last 14 days. Ebola Screen: Patient negative for fever greater than or equal to 101.5 degrees Fahrenheit, and additional compatible Ebola Virus Disease symptoms Patient denies exposure to infectious person. Patient denies travel to an Ebola-affected area in the 21 days before illness onset. Initial Sepsis Screen: Does the patient meet any 2 criteria? No. Patient's initial sepsis screen is negative. Does the patient have a suspected source of infection? No. Patient's initial sepsis screen is negative. Risk Assessment: Do you want to hurt yourself or someone else? Patient reports no desire to harm self or others. Onset of symptoms was July 22, 2022. 21:16 Method Of Arrival: Ambulatory 3 21:16 Acuity: SERGIO 4 kb3 Triage Assessment: 21:18 Headache History: Denies prior headaches. General: Appears in no apparent distress. kb3 uncomfortable, ill, Behavior is calm, cooperative. Pain: Complains of pain in forehead Pain currently is 8 out of 10 on a pain scale. Pain began gradually, 1 day ago. Also complains of decreased appetite, nausea. Neuro: No deficits noted. 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 - Social history:: Smoking status: Reported history of juuling and/or vaping. Screenin/08 01:58 Abuse screen: Denies threats or abuse. Nutritional screening: No deficits noted. vc1 Tuberculosis screening: No symptoms or risk factors identified. Fall Risk None identified. Assessment: 07/23 23:00 Reassessment: Patient and/or family updated on plan of care and expected duration. Pain vc1 level reassessed. Patient states symptoms have not improved. 07/24 01:00 Reassessment: No changes from previously documented assessment. Patient and/or family vc1 updated on plan of care and expected duration. Pain level reassessed. Vital Signs: 07/23 21:16 BP 124 / 80; Pulse 115; Resp 20; Temp 98.5; Pulse Ox 100% ; Weight 97.52 kg; Height 5 kb3 ft. 1 in. (154.94 cm); Pain 8/10; 07/24 00:20 BP 124 / 69; Pulse 88; Resp 18; Pulse Ox 98% on R/A; oe 07/23 21:16 Body Mass Index 40.62 (97.52 kg, 154.94 cm) kb3 ED Course: 07/23 21:04 Patient arrived in ED. mr 21:06 Derek Amaya, TIMBER ESTIMATOR is PHCP. pm1 21:06 Baljit Baig MD is Attending Physician. pm1 21:18 Triage completed. kb3 21:18 Arm band placed on left wrist. kb3 07/24 01:58 Vira Kirk, SCOTTIE is Primary Nurse. vc1 01:59 No provider procedures requiring assistance completed. Patient did not have IV access vc1 during this emergency room visit. Administered Medications: 01:20 CANCELLED (Physician Discretion): Ketorolac 60 mg IM once pm1 01:21 Drug: Decadron (dexamethasone) 10 mg Route: IM; Site: left deltoid; vc1 01:21 Drug: Ketorolac 30 mg Route: IM; Site: right deltoid; vc1 Medication: 01:59 VIS not applicable for this client. vc1 Outcome: 00:45 Discharge ordered by . pm1 01:59 Discharged to home ambulatory, with significant other. vc1 01:59 Condition: good 01:59 Discharge instructions given to patient, Instructed on discharge instructions, follow up and referral plans. medication usage, Demonstrated understanding of instructions, follow-up care, medications, Prescriptions given X 1. 02:00 Patient left the ED. vc1 Signatures: McneilJil chi mr MoniqueDerek, TIMBER ESTIMATOR TIMBER ESTIMATOR pm1 Brennan Ly Vanessa, RN RN vc1 Shasta Crystal RN RN kb3 Corrections: (The following items were deleted from the chart) 07/23 21:18 21:18 Home Meds: Amoxicillin Oral; kb3 kb3 21:18 21:18 Home Meds: ibuprofen 200 mg Oral cap 1 cap every 4-6 hours; kb3 kb3
[2022-07-24] MEDS ORDERED: KETOROLAC 30 MG/ML INJ ONE (01:25)
[2022-07-24] MEDS ORDERED: dexAMETHasone 10 MG/ML VIAL ONE (01:25)
== END 2022-07-24 02:00 | disposition home or self-care (01) ==
LOC: ER 21:01
DX: J06.9 Acute upper respiratory infection, unspecified (principal); Z20.822 Contact with and (suspected) exposure to COVID-19
CPT/HCPCS: 87070; 87081; 87804 ×2; 96372; 99283; U0003; J1100

== ENCOUNTER 2022-11-18 04:08 | Emergency (ER) | payer OTHER ==
--- OUTSIDE RECORDS SUMMARY | 2022-11-18 04:13 | XMS REPORT | Continuity of Care Document ---
:1995 Author Organization [facility] t Address [address] [place] [address] Care Team Providers Name Role Phone LIBERTAD BACON Primary Care Physician Unavailable JAN YATES Attending Clinician Unavailable KO KELLEY Attending Clinician Unavailable Jan Yates MD Attending Clinician Jada Caballero LMSW Attending Clinician Unavailable Jeanette Maher PA-C Attending Clinician LIBERTAD BACON Attending Clinician Unavailable Doctor Unassigned, [place] Attending Clinician Unavailable Uziel Leonard Attending Clinician UZIEL DICKEY Attending Clinician Unavailable Doug RUBIN, Supriya Mayes Attending Clinician Unavailable Drake Sanders MD Attending Clinician Maria Isabel Laureano MD Attending Clinician Agustin Gillette MD Attending Clinician Autumn DURAN, Archie Sanchez Attending Clinician Albaro Khan DO Attending Clinician Arleen [facility] Attending Clinician [phone] Ultrasound, Ang-Mfm Attending Clinician Unavailable Nolberto Sandoval MD Attending Clinician Lab, Uhc-Rmchp Attending Clinician Unavailable 3, [facility] U[facility] Room Attending Clinician Unavailable 1, [facility] Room Attending Clinician Unavailable Ranjith Krause MD Attending Clinician MARIA ISABEL LAUREANO Admitting Clinician Unavailable SANDERS DRAKE RENE Admitting Clinician Unavailable Maria Isabel Laureano MD Admitting Clinician Payers Payer Name Policy Type Policy Number Effective Date Expiration Date Zia french REPLACED BY [facility] [id number] 2016 CHOICE MEDICAID 00:00:00 Problems Condition Condition [...] of status, status, 00:00: g of this [place] antepartum antepartum 00 note Me dical might be Branch different from the original. Address pp Maternal Maternal Disease Active 2019-11 Overview: Un fortunato varicella, varicella, 0-30 Formattin ity of non-immune non-immune 00:00: g of this [place] 00 note Medical might be Branch different from the original. Address pp Multiparit Multiparit Disease Active 2019-11 U nivers y y 0-29 ity of 00:00: [place] [address] Medical Branch Allergies, Adverse Reactions, Alerts Allergy Allergy Status Severity Reaction(s) Onset Inactive Treating Comm ents Source Name Type Date Date Clinician NO KNOWN Drug Active Univers ALLERGIE Class ity of S [facility] Social History Social Habit Start Date Stop Date Quantity Comments Source Alcohol intake 2021-09-20 2021-09-20 Current [facility] 00:00:00 00:00:00 non-drinker of [facility] alcohol Branch (finding) Tobacco use and 2015-05-16 2015-05-16 Never used Universit y of exposure 00:00:00 00:00:00 [facility] Sex Assigned At [birth year] Universit y of 00:00:00 00:00:00 [facility] Smoking Status Start Date Stop Date Source Never smoker [facility] [place] [facility] Medications Ordered Filled Start Stop Current Ordering Indication Dosage Frequency Signature Comments Components Source Medication Medication Date Date Medication? Clinician (SIG) Name Name TAKE 10ML 2-0 No BY MOUTH 9-17 EVERY 4 00:00: HOURS 00 NEEDED FOR COUGH AND CONGESTION TAKE 10ML 2022-0 No BY MOUTH 9-17 EVERY 4 00:00: HOURS 00 NEEDED FOR COUGH AND CONGESTION &lt 2022-0 No 100 06-26 00:00: 00 &lt 2022-0 No 100 06-26 00:00: 00 &lt 2022-0 No 500 06-21 00:00: 00 TAKE 1 2021-0 No 500 TABLET BY 8 MOUTH TWICE 00:00: DAILY 00 &lt 2022-0 No 06-21 00:00: 00 &lt 2022-0 No 150 06-21 00:00: 00 METRONIDAZO 2022-0 No L TAB 500MG 06-21 00:00: 00 TAKE 1 2-0 No 500 TABLET BY 06-21 MOUTH TWICE 00:00: DAILY 00 &lt 2022-0 No 06-21 00:00: 00 TAKE 1 2-0 No 150 TABLET BY 8-06 MOUTH ON 00:00: 00 THEN REPEAT DOSE IN 3 DAYS FLUCONAZOLE 2-0 No TAB 150MG 06-21 00:00: 00 TAKE 1 2-0 No 150 TABLET BY 8-06 MOUTH ON 00:00: THEN REPEAT DOSE IN 3 DAYS METRONIDAZO 2-0 No L TAB 500MG 06-21 00:00: 00 TAKE 1 2-0 No 500 TABLET BY 806 MOUTH TWICE 00:00: DAILY 00 &lt 2022-0 No 06-21 00:00: 00 FLUCONAZOLE 2-0 No TAB 150MG 06-21 00:00: 00 TAKE 1 2-0 No 150 TABLET BY 8-06 MOUTH ON 00:: THEN REPEAT DOSE IN 3 DAYS Diflucan 2020-1 No 1mg 150 mg 2-13 tablet 00:00: 00 metronidazo 2020-1 No 1mg le 500 mg 2-13 tablet 00:00: 00 Diflucan 2020-1 No 1mg 150 mg 2-13 tablet 00:00: 00 metronidazo 2020-1 No 1mg le 500 mg 2-13 tablet 00:00: 00 Diflucan 1-1 No 1mg 150 mg 2-13 tablet 00:00: 00 metronidazo 1-1 No 1mg le 500 mg 2-13 tablet 00:00: 00 Augmentin 1-1 No 1mg 875 mg-125 1-11 mg tablet 00:00: 00 Augmentin 2021-1 No 1mg 875 mg-125 1-11 mg tablet 00:00: 00 Augmentin 1-1 No 1mg 875 mg-125 1-11 mg tablet 00:00: 00 No known 1-1 No Univers medications 1-05 ity of 09:05: [address] Nexplanon 2021-0 No 1mg 68 mg 7-23 subdermal 00:00: implant 00 Nexplanon 2021-0 No 1mg 68 mg 7-23 subdermal 00:00: implant 00 Nexplanon 2021-0 No 1mg 68 mg 7-23 subdermal 00:00: implant 00 Flagyl 500 2021-0 No 1mg mg tablet 04-24 00:00: 00 Flagyl 500 2021-0 No 1mg mg tablet 04-24 00:00: 00 Flagyl 500 2021-0 No 1mg mg tablet 04-24 00:00: 00 Augmentin 2021-0 No 1mg 875 mg-125 6-04 mg tablet 00:00: 00 Augmentin 2021-0 No 1mg 875 mg-125 6-04 mg tablet 00:00: 00 Augmentin 2021-0 No 1mg 875 mg-125 6-04 mg tablet 00:00: 00 pantoprazol 2018-0 No 1mg e 40 mg 9-12 tablet,rocael 00:00: yed release 00 dicyclomine 2018-0 No 1mg 10 mg 9-12 capsule 00:00: 00 pantoprazol 2018-0 No 1mg e 40 mg 9-12 tablet,rocael 00:00: yed release 00 dicyclomine 2018-0 No 1mg 10 mg 9-12 capsule 00:00: 00 pantoprazol 2018-0 No 1mg e 40 mg 9-12 tablet,rocael 00:00: yed release 00 dicyclomine 2018-0 No 1mg 10 mg 9-12 capsule 00:00: 00 Immunizations Ordered Filled Immunization Date Status Comments Sourc e Immunization Name Name TDAP 2021-01-25 Completed University 00:00:00 [facility] Td 2013-06-16 Completed University 00:00:00 [facility] Vital Signs Vital Name Observation Time Observation Value Comments Source Systolic blood 2021-09-20 13:32:00 98 mm[Hg] Univer sity of pressure [facility] Diastolic blood 2021-09-20 13:32:00 67 mm[Hg] Unive rsity of pressure [facility] Heart rate 2021-09-20 13:32:00 92 /min Universi ty [facility] Respiratory rate 2021-09-20 13:32:00 18 /min Univ ersity of [facility] Body height 2021-09-20 13:32:00 154.9 cm [facility] Body weight 2021-09-20 13:32:00 102.655 kg [facility] BMI 2021-09-20 13:32:00 42.76 kg/m2 [facility] BP Systolic 2022-10-27 11:35:00 116 mm[Hg] BP Diastolic 2022-10-27 11:35:00 75 mm[Hg] Weight Measured 2022-10-27 11:35:00 208.80 pounds Height Measured 2022-10-27 11:35:00 61.00 inches Body Temperature 2022-10-27 11:35:00 98.20 degrees Heart Rate 2022-10-27 11:35:00 90.00 /min Respiratory Rate 2022-10-27 11:35:00 18.00 /min BP Systolic 2022-06-21 11:47:00 117 mm[Hg] BP [...] Goal Plan of Care Note [code = 95717-0] Goal Plan of Care Note [code = 76427-6] Goal Plan of Care Note [code = 93698-0] Goal Plan of Care Note [code = 47718-7] Goal Plan of Care Note [code = 31292-5] Goal Plan of Care Note [code = 49232-0] Goal Plan of Care Note [code = 73127-7] Goal Plan of Care Note [code = 49520-0] Goal Plan of Care Note [code = 42676-7] Goal Plan of Care Note [code = 28358-0] Goal Plan of Care Note [code = 27330-0] Goal Plan of Care Note [code = 24005-8] Goal Plan of Care Note [code = 06967-8] Goal Plan of Care Note [code = 05792-5] Goal Plan of Care Note [code = 31295-0] Goal Plan of Care Note [code = 44305-3] Goal Plan of Care Note [code = 38388-5] Goal Plan of Care Note [code = 55189-3] Goal Plan of Care Note [code = 20495-1] Goal Plan of Care Note [code = 25579-9] Goal Plan of Care Note [code = 36713-0] Goal Plan of Care Note [code = 71865-8] Goal Plan of Care Note [code = 14509-0] Goal Plan of Care Note [code = 72269-7] Goal Plan of Care Note [code = 53096-6] Goal Plan of Care Note [code = 12539-1] Goal Plan of Care Note [code = 50965-3] Goal Plan of Care Note [code = 53856-7] Goal Plan of Care Note [code = 74296-3] Goal Plan of Care Note [code = 20285-3] Goal Plan of Care Note [code = 35992-5] Goal Plan of Care Note [code = 20498-8] Goal Plan of Care Note [code = 86339-3] Goal Plan of Care Note [code = 30700-9] Goal Plan of Care Note [code = 94826-0] Goal Plan of Care Note [code = 83560-5] Goal Plan of Care Note [code = 80377-8] Goal Plan of Care Note [code = 82390-8] Goal Plan of Care Note [code = 71138-0] Goal Plan of Care Note [code = 01579-8] Goal Plan of Care Note [code = 10729-3] Goal Plan of Care Note [code = 85844-5] Goal Plan of Care Note [code = 91131-4] Goal Plan of Care Note [code = 79505-8] Goal Plan of Care Note [code = 72400-3] Goal Plan of Care Note [code = 09915-3] Goal Plan of Care Note [code = 96013-8] Goal Plan of Care Note [code = 55317-7] Goal Plan of Care Note [code = 87813-1] Goal Plan of Care Note [code = 92010-5] Goal Plan of Care Note [code = 45429-7] Goal Plan of Care Note [code = 03807-1] Goal Plan of Care Note [code = 31042-8] Goal Plan of Care Note [code = 70352-3] Goal Plan of Care Note [code = 59271-8] Goal Plan of Care Note [code = 91011-8] Goal Plan of Care Note [code = 48374-9] Goal Plan of Care Note [code = 54322-2] Goal Plan of Care Note [code = 74442-6] Goal Plan of Care Note [code = 45897-0] Goal Plan of Care Note [code = 52741-3] Goal Plan of Care Note [code = 52589-9] Goal Plan of Care Note [code = 72640-1] Goal Plan of Care Note [code = 80171-7] Goal Plan of Care Note [code = 76980-3] Goal Plan of Care Note [code = 57417-7] Goal Plan of Care Note [code = 98738-3] Goal Plan of Care Note [code = 26877-9] Goal Plan of Care Note [code = 24537-6] Goal Plan of Care Note [code = 86354-3] Goal Plan of Care Note [code = 70348-6] Goal Plan of Care Note [code = 56735-3] Goal Plan of Care Note [code = 00106-6] Goal Plan of Care Note [code = 72690-9] Goal Plan of Care Note [code = 94904-0] Goal Plan of Care Note [code = 19698-8] Goal Plan of Care Note [code = 12521-8] Goal Plan of Care Note [code = 72440-7] Goal Plan of Care Note [code = 27635-6] Goal Plan of Care Note [code = 69052-5] Goal Plan of Care Note [code = 65235-2] Goal Plan of Care Note [code = 80438-1] Goal Plan of Care Note [code = 79100-9] Goal Plan of Care Note [code = 20502-2] Goal Plan of Care Note [code = 16926-9] Goal Plan of Care Note [code = 93711-8] Goal Plan of Care Note [code = 54189-9] Goal Plan of Care Note [code = 26056-1] Goal Plan of Care Note [code = 81535-2] Goal Plan of Care Note [code = 49624-6] Goal Plan of Care Note [code = 22011-5] Goal Plan of Care Note [code = 37027-2] Goal Plan of Care Note [code = 41769-6] Goal Plan of Care Note [code = 98684-6] Goal Plan of Care Note [code = 42460-7] Goal Plan of Care Note [code = 79124-7] Goal Plan of Care Note [code = 39498-5] Goal Plan of Care Note [code = 69322-6] Goal Plan of Care Note [code = 58959-1] Goal Plan of Care Note [code = 25982-8] Goal Plan of Care Note [code = 73682-4] Goal Plan of Care Note [code = 95248-2] Encounters Start End Encounter Admission Attending Care Care Encounter Source Date/Time Date/Time Type Type Clinicians Facility Department ID 2021-09-16 Outpatient U [facility] TECHNOLOGIST DEVELOPMENT [id number] Univers 02:08:21 [facility] 2021-09-16 Inpatient P WAMB TECHNOLOGIST DEVELOPMENT [id number] Univers 00:32:22 [facility] 2021-09-15 Outpatient [facility] [id number] Univers 20:36:11 [facility] 2022-10-27 2022-10-27 Outpatient SFA TRISH 06801-1 022 Preet 10:54:09 10:54:09 1212 F Altaf 2022-10-27 2022-10-27 Outpatient [id number]- [id number] cxp6qo-1 00:00:00 00:00:00 Visit 2ru3-2c2b fa3-4d7f-9 -2x32-jy6 s45-jf55yh 9kt4746y0 5174c9 2022-08-02 2022-08-02 Outpatient [id number]- [id number] d40n94-8 00:00:00 00:00:00 Visit 1045-434b 045-434b-b -z753-uhd 576-efb97a 00u679gi7 045db2 2022-06-21 2022-06-21 Outpatient 7t14m96d- [id number] 3e 13p26n-s 00:00:00 00:00:00 Visit z10h-2q1q 35b-4c4d-8 -9c33-x72 w95-p51i79 [id number] 9q4043 2022-03-21 2022-03-21 Outpatient R JAN YATES [facility] [id number] Univers 09:30:00 09:30:00 ity [facility] 2022-03-21 2022-03-21 Outpatient JAN MCLEAN [facility] [id number] [facility] 09:30:00 09:30:00 ity [facility] 2021-12-11 2021-12-11 Outpatient Cathy KELLEY [facility] [id number] Univers 10:45:00 10:45:00 KO ity o f [facility] 2021-09-20 2021-09-20 Outpatient JAN MCLEAN [facility] [id number] Univers 08:30:00 09:07:04 ity [facility] 2021-09-20 2021-09-20 Office Jan Yates [facility] 1.2.840.114 [id number] Univers 08:23:27 09:07:04 Visit Orion HANSEN 350.1.13.10 it [place] [id number] [address] 2021-09-20 2021-09-20 Outpatient R TRUDY [facility] [id number] Univers 08:30:00 08:30:00 ity [facility] 2021-08-30 2021-08-30 Case Royal Caballero 1.2.840.114 [id number] Univers 00:00:00 00:00:00 Management Jada Mckeon 350.1.13.10 [place] [id number] [address] 2021-08-01 2021-08-01 Telephone Nika [facility] 1.2.840.114 [id number] Univers 00:00:00 00:00:00 Jeanette Christine 350.1.13.10 [place] [id number] [address] 2021-07-26 2021-07-26 Outpatient R TRUDY JAN [facility] [id number] Univers 12:45:00 12:45:00 ity [facility] 2021-07-25 2021-07-25 Telephone Trudy [facility] 1.2.840.114 [id number] Univers 00:00:00 00:00:00 Orion Christine 350.1.13.10 [place] [id number] [address] 2021-07-19 2021-07-19 Office Trudy Jan [facility] 1.2.840.114 [id number] Univers 13:30:16 14:08:41 Visit Orion Hansen 350.1.13.10 it [place] [id number] [address] 2021-07-19 2021-07-19 Outpatient R TRUDY [facility] [id number] Univers 13:30:00 13:30:00 ity [facility] 2021-05-29 2021-05-29 Outpatient R ARLEEN [facility] [id number] Univers 15:15:00 15:15:00 LIBERTAD muro o f [facility] 2021-05-15 2021-05-15 Orders Doctor FER 1.2.840.114 [id number] Univers 00:00:00 00:00:00 Only Unassigned, SUZY 350.1.13.10 ity of [place] [facility] 4.2.7.2.686 Gavino as [id number] [address] 2021-05-15 2021-05-15 Orders Doctor FER 1.2.840.114 [id number] 00:00:00 00:00:00 Only Unassigned, SUZY 350.1.13.10 [place] [facility] 4.2.7.2.686 [id number] 009 2021-05-08 2021-05-08 [facility] 1.2.840.114 [id number] 15:10:42 15:39:26 Rosdrewnda R PSYCHIATRIC SECURITY NURSE 350.1.13.[address] [facility] 4.2.7.2.686 MATERNAL [id number] & CHILD [address] [place] [address] 2021-05-08 2021-05-08 [facility] 1.2.840.114 [id number] Univers 15:10:42 15:39:26 Roshunda R PSYCHIATRIC SECURITY NURSE 350.1.13.10 ity of Visit REGIONAL 4.2.7.2.686 Gavino as MATERNAL [id number] Med ical & CHILD [address] [place] [address] 2021-05-08 2021-05-08 Outpatient R KELI [facility] [id number] Univers 15:00:00 15:00:00 ABHISHEKA bhaskar o f [facility] 2021-05-06 2021-05-06 Transition Royal Camacho 1.2.840.114 [id number] 00:00:00 00:00:00 of Care Supriya Mckeon 350.1.13.10 [place] 4.2.7.2.686 [id number] 2021-05-06 2021-05-06 Transition Royal Camacho 1.2.840.114 [id number] Univers 00:00:00 00:00:00 of Care Supriya Coxy 350.1.13.10 i [place] [id number] [facility] [address] 2021-04-25 2021-05-03 [facility] 1.2.8 40.114 [id number] 20:06:00 10:30:00 Encounter Maria Isabel Laureano 350.1.13.10 [facility] 4.2.7.2.686 [id number] 019 2021-04-25 2021-05-03 [facility] 1.2.8 40.114 [id number] Univers 20:06:00 10:30:00 Encounter Maria Isabel Laureano 350.1.13.10 ity of [facility] 4.2.7.2.686 Gavino as [id number] [facility] 0[address] Branch 2021-04-05 2021-04-[address] [facility], 1.2.840.9 [id number] Univers 15:00:00 13:00:00 Encounter Agustin Rod 72729.1.1 ity of 3.104.2.7 [place] .3.374112 Medica l .8 [place] 2021-04-05 2021-04-06 Anesthesia Archie Leyva 1.2.840.1 1 [id number] Univers 21:19:00 13:54:00 Event Albaro Khan 98570.1.1 ity of 3.104.2.7 [place] .3.331274 Medica l .8 Branch 2021-04-05 2021-04-05 Outpatient R ARLEEN, [facility] [id number] Univers 14:15:00 14:15:00 LIBERTAD hensley f [facility] 2021-04-05 2021-04-05 Travel 1.2.840.1 1.2.859.696 [id number] Univers 00:00:00 00:00:00 34791.1.1 350.1.13.10 ity of 3.104.2.7 [place].3.698 [place] .3.176542 084.8 Medica l .8 [place] 2021-03-29 2021-03-29 Routine Akinsipe, [facility] 1.2.989.179 [id number] 12:56:20 13:26:57 Libertad C PSYCHIATRIC SECURITY NURSE 350.1.13.10 Visit REGIONAL 4.2.7.2.686 MATERNAL [id number] & CHILD [address] [place] [address] 2021-03-29 2021-03-29 Routine Akinsipe, 1.2.840.2 [id number] 10198 [facility] 12:56:20 13:26:57 Libertad C 53081.1.1 ity of Visit 3.104.2.7 [place] .3.758015 Medica l .8 [place] 2021-03-29 2021-03-29 Outpatient R AKINSIPE, [facility] [id number] Univers 13:00:00 13:00:00 LIBERTAD ity o f [facility] 2021-03-29 2021-03-29 Travel 1.2.840.1 1.2.581.684 [id number] Univers 00:00:00 00:00:00 88740.1.1 350.1.13.10 ity of 3.104.2.7 4.[place].7.3.698 [place] .3.254236 084.8 Medica l .8 [place] 2021-03-27 2021-03-27 Travel 1.2.840.1 1.2.643.334 [id number] Univers 00:00:00 00:00:00 75411.1.1 350.1.13.10 ity of 3.104.2.7 4.2.7.3.698 [place] .3.603841 084.8 Medica l .8 [place] 2021-03-22 2021-03-22 Outpatient R AKINSIPE, [facility] [id number] Univers 15:00:00 15:00:00 LIBERTAD ity o f [facility] 2021-03-15 2021-03-15 [facility]ine [facility] 1.2.225.492 [id number] 0000 13:06:32 13:45:27 Libertad C PSYCHIATRIC SECURITY NURSE 350.1.13.10 Visit REGIONAL 4.2.7.2.686 MATERNAL [id number] & CHILD [address] [facility] 2021-03-15 2021-03-15 Routine Akinsipe, 1.2.840.6 [id number] [facility] 13:06:32 13:45:27 Libertad C 96083.1.1 ity of Visit 3.104.2.7 [place] .3.070217 Medica l .8 [place] 2021-03-15 2021-03-15 Outpatient R AKINVIDHYA, [facility] [id number] [facility] 13:00:00 13:00:00 LIBERTAD ity o f [facility] 2021-03-15 2021-03-15 [facility] 1.2.840.114 [id number] 00:00:00 00:00:00 Libertad C PSYCHIATRIC SECURITY NURSE 350.1.13.10 REGIONAL 4.2.7.2.686 MATERNAL [id number] & CHILD 107 [facility] 2021-03-15 2021-03-15 Telephone Akinsipe, 1.2.840.4 [id number] Univers 00:00:00 00:00:00 Libertad C 71324.1.1 i ty of 3.104.2.7 [place] .3.021778 Medica l .8 [place] 2021-03-15 2021-03-15 Travel 1.2.840.1 1.2.347.907 [id number] Univers 00:00:00 00:00:00 45798.1.1 350.1.13.10 ity of 3.104.2.7 4.2.7.3.698 [place] .3.310427 084.8 Medica l .8 [place] 2021-03-08 2021-03-08 Routine Akinsipe, 1.2.840.2 [id number] Univers 12:47:55 13:16:26 Libertad C 44579.1.1 ity of Visit 3.104.2.7 [place] .3.118096 Medica l .8 [place] 2021-03-08 2021-03-08 Outpatient R AKINSIPE, [facility] [id number] Univers 12:45:00 12:45:00 LIBERTAD ity o f [facility] 2021-03-08 2021-03-08 Travel 1.2.840.1 1.2.250.537 [id number] Univers 00:00:00 00:00:00 69644.1.1 350.1.13.10 ity of 3.104.2.7 4.2.7.3.698 [place] .3.059291 084.8 Medica l .8 [place] 2021-02-15 2021-02-15 Routine Akinsipe, 1.2.840.4 [id number] Univers 12:48:13 13:26:32 Libertad C 53462.1.1 ity of Visit 3.104.2.7 [place] .3.300976 Medica l .8 [place] 2021-02-15 2021-02-15 [facility] [id number] Univers 12:45:00 12:45:00 LIBERTAD ity o f [facility] 2021-02-15 2021-02-15 Travel 1.2.840.1 1.2.903.656 [id number] Univers 00:00:00 00:00:00 14422.1.1 350.1.13.10 ity of 3.104.2.7 4.[place].7.3.698 [place] .3.181046 084.8 Medica l .8 [place] 2021-02-08 2021-02-08 Outpatient R AKINSIPE, [facility] [id number] Univers 13:00:00 13:00:00 LIBERTAD ity o f [facility] 2021-01-25 2021-01-25 [facility] 1.2.340.571 [id number] Univers 09:30:30 10:29:38 Libertad C PSYCHIATRIC SECURITY NURSE 350.1.13.10 ity of Visit REGIONAL 4.2.7.2.686 Gavino as MATERNAL [id number] Med ical & CHILD [address] [place] [address] 2021-01-252021-01-25 [facility] [id number] Univers 09:30:00 09:30:00 LIBERTAD bhaskar hensley nai [facility] 2021-01-11 2021-01-11 Routine [facility] 1.2.826.194 [id number] Univers 10:53:27 11:36:00 Libertad C PSYCHIATRIC SECURITY NURSE 350.1.13.10 ity of Visit REGIONAL 4.2.7.2.686 Gavino as MATERNAL [id number] [facility] & CHILD [address] [place] [address] 2021-01-11 2021-01-11 [facility] [id number] Univers 11:00:00 11:00:[address] [facility] 2020-12-27 2020-12-27 Telephone [facility] 1.2.840.114 [id number] Univers 00:00:00 00:00:00 Libertad C PSYCHIATRIC SECURITY NURSE 350.1.13.10 ity of REGIONAL 4.2.7.2.686 Gavino as MATERNAL [id number] [facility] & CHILD [address] [place] [address] 2020-12-21 2020-12-21 Orders Doctor FER 1.2.840.114 [id number] 00:00:00 00:00:00 Only Unassigned, SUZY 350.1.13.10 ity of [place] [facility] 4.2.7.2.686 [place]av[place] as [id number] [address] 2020-12-14 2020-12-14 [facility] [id number] Univers 09:47:51 10:56:01 Libertad C PSYCHIATRIC SECURITY NURSE 350.1.13.10 ity of Visit REGIONAL 4.2.7.2.686 [place] as MATERNAL [phone] [facility] & [address] 2020-12-14 2020-12-14 [facility]patient [facility] [id number] Univers 09:45:00 09:45:[address] [facility] 2020-11-19 2020-11-19 Online Merchandiser Ultrasound, [facility] 1.2 .840.114 [id number] Univers 09:56:50 11:27:45 Visit Libertad Bacon PSYCHIATRIC SECURITY NURSE 350.1.13. 10 ity of Nolberto Sandoval [facility] 4.2.7.2.686 [place] MATERNAL [phone] [facility] ical & CHILD [address] [facility] [place] [place] 2020-11-19 2020-11-19 [facility] [id number] Univers 09:08:12 09:40:42 Libertad C PSYCHIATRIC SECURITY NURSE 350.1.13.[address] [facility] 4.2.7.2.686 [place]av[place] as MATERNAL [phone] [facility] & CHILD [address] [place] [address] 2020-11-19 2020-11-19 [facility] [id number] Univers 09:15:00 09:15:[address] [facility] 2020-11-19 2020-11-19 Orders Doctor FER 1.2.840.114 [id number] Univers 00:00:00 00:00:00 Only Unassigned, SUZY 350.1.13.10 ity of [place] [facility] 4.2.7.2.686 [place]av[place] as [phone] [address] 2020-11-19 2020-11-19 Abstract [facility] 1.2.840.114 [id number] Univers 00:00:00 00:00:00 Libertad Pratt PSYCHIATRIC SECURITY NURSE 350.1.13.[address] [facility] HOSPITAL [id number] Gavino as MATERNAL [phone] [facility] & CHILD [address] [place] [address] 2020-11-13 2020-11-13 Outpatient R ARLEEN [facility] [id number] Univers 08:15:00 08:15:00 LIBERTAD rod [facility] 2020-11-06 2020-11-06 Outpatient R ARLEEN [facility] [id number] Univers 13:15:00 13:15:00 LIBERTAD rod [facility] 2020-11-06 2020-11-06 Outpatient R ARLEEN [facility] [id number] Univers 10:45:00 10:45:00 LIBERTAD rod [facility] 2020-10-10 2020-10-10 Outpatient R ARLEEN [facility] [id number] Univers 09:45:00 09:45:00 LIBERTAD rod [facility] 2020-10-09 2020-10-09 [facility] [id number] [id number] Univers 10:35:23 10:50:23 Libertad C PSYCHIATRIC SECURITY NURSE 350.1.13.[address] [facility] [id number] Gavino as MATERNAL [phone] [facility] ical & CHILD [address] [place] [address] 2020-10-09 2020-10-09 Outpatient R ARLEEN [facility] [id number] Univers 10:45:00 10:45:00 LIBERTAD rod [facility] 2020-09-27 2020-09-27 Orders Doctor FER 1.2.840.114 [id number] Univers 00:00:00 00:00:00 Only Unassigned, SUZY 350.1.13.10 ity of [place] [facility] 4.2.7.2.686 Gavino as [phone] [address] 2020-09-26 2020-09-26 Abstract [facility] 1.2.840.114 [id number] Univers 00:00:00 00:00:00 Libertad C PSYCHIATRIC SECURITY NURSE 350.1.13.10 ity of REGIONAL 4.2.7.2.686 Gavino as MATERNAL [phone] [facility] ical & CHILD [address] [place] [address] 2020-09-26 2020-09-26 Abstract [facility] 1.2.840.114 [id number] Univers 00:00:00 00:00:00 Libertad C PSYCHIATRIC SECURITY NURSE 350.1.13.[address] [facility] 4.2.7.2.686 Gavino as MATERNAL [phone] [facility] ical & CHILD [address] [place] [address] 2020-09-24 2020-09-24 Online Merchandiser Lab, [facility] 1.2.84 0.114 [id number] Univers 14:44:26 14:55:44 Visit Maria Isabel Laureano [facility] 350.1.13.10 ity of CL[place] [phone] [facility] [address] 2020-09-24 2020-09-24 Online Merchandiser 3, [facility] Room UNIVERSIT 1 .2.840.114 [id number] Univers 13:17:42 14:32:26 Visit Maria Isabel Laureano [facility] 350.1.13.10 ity [place] [phone] [facility] [address] 2020-09-24 2020-09-24 Outpatient P [facility] [id number] Univers 13:00:00 13:00:00 ity of [facility] 2020-09-17 2020-09-17 Online Merchandiser 1, [facility] Room UNIVERSIT 1 .2.840.114 [id number] Univers 10:37:50 11:36:49 Visit Ranjith Krause Etelvian [facility] 350.1.13.10 ity of [place] [phone] [facility] [address] 2020-09-17 2020-09-17 Outpatient P [facility] [id number] Univers 10:30:00 10:30:00 ity of [facility] 2020-09-17 2020-09-17 Telephone [facility] 1.2.840.114 [id number] Univers 00:00:00 00:00:00 Libertad C PSYCHIATRIC SECURITY NURSE 350.1.13.[address] [facility] 4.2.7.2.686 Gavino as MATERNAL [phone] Med ical & CHILD [address] [place] [address] 2020-09-17 2020-09-17 Abstract [facility] 1.2.840.114 [id number] Univers 00:00:00 00:00:00 Libertad C PSYCHIATRIC SECURITY NURSE 350.1.13.10 ity of REGIONAL 4.2.7.2.686 Gavino as MATERNAL [phone] [facility] ical & CHILD [address] [place] [address] 2020-09-13 2020-09-14 Initial [facility] 1.2.280.731 [id number] Univers 13:26:47 09:39:46 Libertad C PSYCHIATRIC SECURITY NURSE 350.1.13.10 ity of Visit REGIONAL 4.2.7.2.686 Gavino as MATERNAL [phone] [facility] & CHILD [address] [place] [address] 2020-09-14 2020-09-14 Telephone [facility] 1.2.840.114 [id number] Univers 00:00:00 00:00:00 Libertad C PSYCHIATRIC SECURITY NURSE 350.1.13.10 ity of REGIONAL 4.2.7.2.686 Gavino as MATERNAL [phone] [facility] & [address] 2020-09-14 2020-09-14 Telephone [facility] 1.2.840.114 [id number] Univers 00:00:00 00:00:00 Libertad C PSYCHIATRIC SECURITY NURSE 350.1.13.[address] [facility] 4.2.7.2.686 Gavino as MATERNAL [phone] [address] 2020-09-14 2020-09-14 Telephone [facility] 1.2.840.114 [id number] Univers 00:00:00 00:00:00 Libertad C PSYCHIATRIC SECURITY NURSE 350.1.13.[address] [facility] 4.2.7.2.686 Gavino as MATERNAL [phone] [address] 2020-09-13 2020-09-[address] [facility] [id number] Univers 13:30:00 13:30:00 LIBERTAD ity o f [facility] 2020-09-13 2020-09-13 Orders Doctor FER 1.2.840.114 [id number] Univers 00:00:00 00:00:00 Only Unassigned, SUZY 350.1.13.10 ity of [place] [facility] 4.2.7.2.686 Gavino as [phone] [address] Results Test Description Test Time Test Comments Results Result Comments Source CT/NG, NAAT, URINE 2022-06-24 12:53:39 Test Item Value Reference Range Interpretation Comme nts GONORRHEA, NAAT NEGATIVE NEGATIVE IMPORTA NT NOTICE: SEE ANNOUNCEMENT AT (test code = [email or web address] Healthcare ProfessionalsrineKit Note: 24456) Assay methodolo gy is nucleic acid amplification by transcriptio n mediated amplification (TMA) utilizing the A ptima Combo 2 Assay. CHLAMYDIA, NAAT NEGATIVE NEGATIVE IMPORTA NT NOTICE: SEE ANNOUNCEMENT AT (test code = [email or web address] Note: 48697) Assay methodolo gy is nucleic acid amplification by transcriptio n mediated amplification (TMA) utilizing the A ptima Combo 2 Assay. UNLESS OTHERWISE INDIC ATED, ALL TESTING PERFORMED [facility] [address] [place] [address] [facility] DEAN: ELLE HERNANDEZ M.D. [place] NUMBER [id number] [place] [id number] CULTURE, [id number] 11:51:43SPECIMEN NUMBER: [id number] CULTURE, URINE SPECIMEN NUMBER: [id number] SPECIMEN COMMENT: URINE SOURCE:URINE REPORT STATUS: FINAL ISOLATE NUMBER 1: ORGANISM: 06/23/2022 >100,000 CFU/ML GRAM NEGATIVE BA CILLI IDENTIFICATION: 06/24/2022 ESCHERICHIA COLI E. COLI AMOXICILLIN/CA SENSITIVE <=8/4AMPICILLIN SENSITIVE <=8CEFAZOLIN SENSITIVE <=2CEFTRIAXONE SENSITIVE <=1CIPROFLOXACIN SENSITIVE <=1LEVOFLOXACIN SENSITIVE <=2NITROFURANTOIN SENSITIVE <=32PIP/TAZOBAC SENSITIVE <=16TETRACYCLINE SENSITIVE <=4TOBRAMYCIN SENSITIVE <=4TRIMETH/SULFA SENSITIVE <=2/38 NOTE: NUMBERS DISPLAYED REPRESENT MINIMUM INHIBITORY CONCENTRATION (ALEXA) WHICH IS EXPRESSED IN MCG/ML.GC AND CHLAMYDIA, AMPLIFIED, [id number] 00:00:00 Test Item Value Reference Range Interpretation Comments GONORRHEA, NAAT (test code = 25588) NEGATIVE CHLAMYDIA, NAAT (test code = 22529) NEGATIVE GC AND CHLAMYDIA, AMPLIFIED, [id number] 00:00:00 Test Item Value Reference Range Interpretation Comments GONORRHEA, NAAT (test code = 95582) NEGATIVE CHLAMYDIA, NAAT (test code = 16296) NEGATIVE CULTURE, [id number] 00:00:00 Test Item Value Reference Range Interpretation Comments CULTURE, URINE (test SPECIMEN NUMBER: code = 16886) [id number] CULTURE, [id number] 00:00:00 Test Item Value Reference Range Interpretation Comments CULTURE, URINE (test SPECIMEN NUMBER: code = 84357) [id number] GC AND CHLAMYDIA, AMPLIFIED, [id number] 00:00:00 Test Item Value Reference Range Interpretation Comments GONORRHEA, NAAT (test code = 92298) NEGATIVE CHLAMYDIA, NAAT (test code = 49158) NEGATIVE GC AND CHLAMYDIA, AMPLIFIED, [id number] 00:00:00 Test Item Value Reference Range Interpretation Comments GONORRHEA, NAAT (test code = 17492) NEGATIVE CHLAMYDIA, NAAT (test code = 40993) NEGATIVE CULTURE, [id number] 00:00:00 Test Item Value Reference Range Interpretation Comments CULTURE, URINE (test SPECIMEN NUMBER: code = 36320) [id number] CULTURE, [id number] 00:00:00 Test Item Value Reference Range Interpretation Comments CULTURE, URINE (test SPECIMEN NUMBER: code = 18265) [id number] SARS-CoV-2 (COVID-19), RT-[id number] 16:30:16 Test Item Value Reference Interpretation Comments Range SARS-CoV-2 POSITIVE SEE NOTE A SARS-CoV-2 RNA INTERPRETATION DETECTEDPosit oscar results (test code = [place] indicative of the [address]) presence of FRANKIE S-CoV-2 RNA;clinical co rrelation with patient hi story and other diagnosticinfor mation is necessary to de termine patient infecti on status.Positive results do not rule out bacterial infec tion or co-infectionwit h other viruses. Positi ve and negative predic tive values oftestin g are highly dependen t on prevalence. SOURCE (test code NASOPHARYNGEAL Note: M ethodology is = 61994) Jessica Michael Antonia l-Time RT-PCR. The exp ected result or refer ence range is NEGATI VE (Not Detected). For more information reg arding COVID-19 testin g to include clinicalinforma tion, methodology det ail, intended use, F DA authorization andrecommended fact sheets for greta ents or healthcare prov iders, see NewTest Announcement: S ARS-CoV-2 (COVID-19) by N AAT at URL below (note ,fact sheets are prov ided by method given in report:[email or web address] [email or web address] -communications / Alternatively, see downloadable PD F fact sheet at:[email or web address] [email or web address] PCR UNLESS OTHERWIS E INDICATED, ALL TESTING PERFORMED [facility] [address] [place] [address] 4 LABORATORY DIRE CTOR: ELLE HERNANDEZ M.D. CLIA NUMBER [id number] [place] [place] [id number] SARS-CoV-2 (COVID-19) by RT-PCR (HIGH RISK)2021-11-24 00:00:00 Test Item Value Reference Range Interpretation Comments SARS-CoV-2 INTERPRETATION POSITIVE (test code = 01215) SOURCE (test code = 64165) NASOPHARYNGEAL SARS-CoV-2 (COVID-19) by RT-PCR (HIGH RISK)2021-11-24 00:00:00 Test Item Value Reference Range Interpretation Comments SARS-CoV-2 INTERPRETATION POSITIVE (test code = 17879) SOURCE (test code = 08483) NASOPHARYNGEAL SARS-CoV-2 (COVID-19) by RT-PCR (HIGH RISK)2021-11-24 00:00:00 Test Item Value Reference Range Interpretation Comments SARS-CoV-2 INTERPRETATION POSITIVE (test code = 45821) SOURCE (test code = 56042) NASOPHARYNGEAL SARS-CoV-2 (COVID-19) by RT-PCR (HIGH RISK)2021-11-24 00:00:00 Test Item Value Reference Range Interpretation Comments SARS-CoV-2 INTERPRETATION POSITIVE (test code = 01142) SOURCE (test code = 23961) NASOPHARYNGEAL SARS-CoV-2 (COVID-19) by RT-PCR (HIGH RISK)2021-11-24 00:00:00 Test Item Value Reference Range Interpretation Comments SARS-CoV-2 INTERPRETATION POSITIVE (test code = 21047) SOURCE (test code = 23270) NASOPHARYNGEAL GC AND CHLAMYDIA, AMPLIFIED, [id number] 00:00:00 Test Item Value Reference Range Interpretation Comments GONORRHEA, NAAT (test code = 05945) NEGATIVE CHLAMYDIA, NAAT (test code = 92597) NEGATIVE GC AND CHLAMYDIA, AMPLIFIED, [id number] 00:00:00 Test Item Value Reference Range Interpretation Comments GONORRHEA, NAAT (test code = 41217) NEGATIVE CHLAMYDIA, NAAT (test code = 43441) NEGATIVE GC AND CHLAMYDIA, AMPLIFIED, [id number] 00:00:00 Test Item Value Reference Range Interpretation Comments GONORRHEA, NAAT (test code = 94653) NEGATIVE CHLAMYDIA, NAAT (test code = 10602) NEGATIVE HIV AB/AG COMBO RFLX [id number] 00:00:00 Test Item Value Reference Range Interpretation Comments HIV 1/2 4TH GEN, RFLX CONF (test NON-REACTIVE code = 3514) HIV AB/AG COMBO RFLX [id number] 00:00:00 Test Item Value Reference Range Interpretation Comments HIV 1/2 4TH GEN, RFLX CONF (test NON-REACTIVE code = 3514) [id number] 00:00:00 Test Item Value Reference Range Interpretation Comments RPR RESULT (test code = NON-REACTIVE 3501) RPR TITER (test code = 3500) NOT INDIC. TITER [id number] 00:00:00 Test Item Value Reference Range Interpretation Comments RPR RESULT (test code = NON-REACTIVE 3501) RPR TITER (test code = 3500) NOT INDIC. TITER [id number] 00:00:00 Test Item Value Reference Range Interpretation Comments RPR RESULT (test code = NON-REACTIVE 3501) RPR TITER (test code = 3500) NOT INDIC. TITER ACUTE HEPATITIS [id number] 00:00:00 Test Item Value Reference Range Interpretation Comments HEPATITIS A IgM (test code = NON-REACTIVE 20842) HEPATITIS B CORE IgM (test code NON-REACTIVE = 4644) HEPATITIS B SURF AG (test code = NON-REACTIVE 2739) HEPATITIS C ANTIBODY (test code NON-REACTIVE = 4675) INTERPRETATION HEPATITIS A: (NOTE) (test code = 2552) INTERPRETATION HEPATITIS B: (NOTE) (test code = 70695) INTERPRETATION HEPATITIS C: (NOTE) (test code = 99638) ACUTE HEPATITIS [id number] 00:00:00 Test Item Value Reference Range Interpretation Comments HEPATITIS A IgM (test code = NON-REACTIVE 51103) HEPATITIS B CORE IgM (test code NON-REACTIVE = 4644) HEPATITIS B SURF AG (test code = NON-REACTIVE 2739) HEPATITIS C ANTIBODY (test code NON-REACTIVE = 4675) INTERPRETATION HEPATITIS A: (NOTE) (test code = 2552) INTERPRETATION HEPATITIS B: (NOTE) (test code = 51240) INTERPRETATION HEPATITIS C: (NOTE) (test code = 21965) VAGINAL PATHOGENS DNA [id number] 00:00:00 Test Item Value Reference Range Interpretation Comments THALIA SPECIES (test code = ) POSITIVE G. VAGINALIS (test code = 62977) POSITIVE T. VAGINALIS (test code = 59897) NEGATIVE VAGINAL PATHOGENS DNA [id number] 00:00:00 Test Item Value Reference Range Interpretation Comments THALIA SPECIES (test code = ) POSITIVE G. VAGINALIS (test code = ) POSITIVE T. VAGINALIS (test code = ) NEGATIVE HIV AB/AG COMBO RFLX [id number] 00:00:00 Test Item Value Reference Range Interpretation Comments HIV 1/2 4TH GEN, RFLX CONF (test NON-REACTIVE code = 3514) GC AND CHLAMYDIA, AMPLIFIED, [id number] 00:00:00 Test Item Value Reference Range Interpretation Comments GONORRHEA, NAAT (test code = 58241) NEGATIVE CHLAMYDIA, NAAT (test code = 39801) NEGATIVE GC AND CHLAMYDIA, AMPLIFIED, [id number] 00:00:00 Test Item Value Reference Range Interpretation Comments GONORRHEA, NAAT (test code = 73195) NEGATIVE CHLAMYDIA, NAAT (test code = 45918) NEGATIVE HIV AB/AG COMBO RFLX [id number] 00:00:00 Test Item Value Reference Range Interpretation Comments HIV 1/2 4TH GEN, RFLX CONF (test NON-REACTIVE code = 3514) [id number] 00:00:00 Test Item Value Reference Range Interpretation Comments RPR RESULT (test code = NON-REACTIVE 3501) RPR TITER (test code = 3500) NOT INDIC. TITER HIV AB/AG COMBO RFLX [id number] 00:00:00 Test Item Value Reference Range Interpretation Comments HIV 1/2 4TH GEN, RFLX CONF (test NON-REACTIVE code = 3514) [id number] 00:00:00 Test Item Value Reference Range Interpretation Comments RPR RESULT (test code = NON-REACTIVE 3501) RPR TITER (test code = 3500) NOT INDIC. TITER [id number] 00:00:00 Test Item Value Reference Range Interpretation Comments RPR RESULT (test code = NON-REACTIVE 3501) RPR TITER (test code = 3500) NOT INDIC. TITER [id number] 00:00:00 Test Item Value Reference Range Interpretation Comments RPR RESULT (test code = NON-REACTIVE 3501) RPR TITER (test code = 3500) NOT INDIC. TITER [id number] 00:00:00 Test Item Value Reference Range Interpretation Comments RPR RESULT (test code = NON-REACTIVE 3501) RPR TITER (test code = 3500) NOT INDIC. TITER ACUTE HEPATITIS [id number] 00:00:00 Test Item Value Reference Range Interpretation Comments HEPATITIS A IgM (test code = NON-REACTIVE 89940) HEPATITIS B CORE IgM (test code NON-REACTIVE = 4644) HEPATITIS B SURF AG (test code = NON-REACTIVE 2739) HEPATITIS C ANTIBODY (test code NON-REACTIVE = 4675) INTERPRETATION HEPATITIS A: (NOTE) (test code = 2552) INTERPRETATION HEPATITIS B: (NOTE) (test code = 23641) INTERPRETATION HEPATITIS C: (NOTE) (test code = 83024) ACUTE HEPATITIS [id number] 00:00:00 Test Item Value Reference Range Interpretation Comments HEPATITIS A IgM (test code = NON-REACTIVE 29361) HEPATITIS B CORE IgM (test code NON-REACTIVE = 4644) HEPATITIS B SURF AG (test code = NON-REACTIVE 2739) HEPATITIS C ANTIBODY (test code NON-REACTIVE = 4675) INTERPRETATION HEPATITIS A: (NOTE) (test code = 2552) INTERPRETATION HEPATITIS B: (NOTE) (test code = 12444) INTERPRETATION HEPATITIS C: (NOTE) (test code = 47329) VAGINAL PATHOGENS DNA [id number] 00:00:00 Test Item Value Reference Range Interpretation Comments THALIA SPECIES (test code = ) POSITIVE G. VAGINALIS (test code = 18120) POSITIVE T. VAGINALIS (test code = 46040) NEGATIVE VAGINAL PATHOGENS DNA [id number] 00:00:00 Test Item Value Reference Range Interpretation Comments THALIA SPECIES (test code = ) POSITIVE G. VAGINALIS (test code = 63709) POSITIVE T. VAGINALIS (test code = ) NEGATIVE ACUTE HEPATITIS [id number] 00:00:00 Test Item Value Reference Range Interpretation Comments HEPATITIS A IgM (test code = NON-REACTIVE 39075) HEPATITIS B CORE IgM (test code NON-REACTIVE = 4644) HEPATITIS B SURF AG (test code = NON-REACTIVE 2739) HEPATITIS C ANTIBODY (test code NON-REACTIVE = 4675) INTERPRETATION HEPATITIS A: (NOTE) (test code = 2552) INTERPRETATION HEPATITIS B: (NOTE) (test code = 78137) INTERPRETATION HEPATITIS C: (NOTE) (test code = 09032) VAGINAL PATHOGENS DNA [id number] 00:00:00 Test Item Value Reference Range Interpretation Comments THALIA SPECIES (test code = ) POSITIVE G. VAGINALIS (test code = ) POSITIVE T. VAGINALIS (test code = ) NEGATIVE CULTURE, [id number] 00:00:00 Test Item Value Reference Range Interpretation Comments CULTURE, URINE (test SPECIMEN NUMBER: code = 55157) [id number] CULTURE, [id number] 00:00:00 Test Item Value Reference Range Interpretation Comments CULTURE, URINE (test SPECIMEN NUMBER: code = 63213) [id number] CULTURE, [id number] 00:00:00 Test Item Value Reference Range Interpretation Comments CULTURE, URINE (test SPECIMEN NUMBER: code = 62862) [id number] CULTURE, [id number] 00:00:00 Test Item Value Reference Range Interpretation Comments CULTURE, URINE (test SPECIMEN NUMBER: code = 73480) [id number] CULTURE, [id number] 00:00:00 Test Item Value Reference Range Interpretation Comments CULTURE, URINE (test SPECIMEN NUMBER: code = 79647) [id number] VAGINAL PATHOGENS DNA [id number] 00:00:00 Test Item Value Reference Range Interpretation Comments THALIA SPECIES (test code = ) NEGATIVE G. VAGINALIS (test code = 95281) POSITIVE T. VAGINALIS (test code = ) NEGATIVE VAGINAL PATHOGENS DNA [id number] 00:00:00 Test Item Value Reference Range Interpretation Comments THALIA SPECIES (test code = ) NEGATIVE G. VAGINALIS (test code = 16684) POSITIVE T. VAGINALIS (test code = 87520) NEGATIVE VAGINAL PATHOGENS DNA [id number] 00:00:00 Test Item Value Reference Range Interpretation Comments THALIA SPECIES (test code = 02746) NEGATIVE G. VAGINALIS (test code = 36413) POSITIVE T. VAGINALIS (test code = 22107) NEGATIVE VAGINAL PATHOGENS DNA [id number] 00:00:00 Test Item Value Reference Range Interpretation Comments THALIA SPECIES (test code = 11394) NEGATIVE G. VAGINALIS (test code = 43677) POSITIVE T. VAGINALIS (test code = 68650) NEGATIVE VAGINAL PATHOGENS DNA [id number] 00:00:00 Test Item Value Reference Range Interpretation Comments THALIA SPECIES (test code = 66073) NEGATIVE G. VAGINALIS (test code = 09982) POSITIVE T. VAGINALIS (test code = 74861) NEGATIVE COMPREHENSIVE METABOLIC [id number] 00:00:00 Test Item Value Reference Range Interpretation Comments GLUCOSE (test code = 2217) 93 MG/DL BUN (test code = 2208) 21 MG/DL CREATININE (test code = 2214) 0.78 MG/DL eGFR AMER. (test code 123 ML/MIN/1.73 = 89907) eGFR NON- AMER. (test 106 ML/MIN/1.73 code = 62598) CALC BUN/CREAT (test code = 27 RATIO 2235) SODIUM (test code = 2231) 144 MEQ/L POTASSIUM (test code = 2228) 4.4 MEQ/L CHLORIDE (test code = 2215) 104 MEQ/L CARBON DIOXIDE (test code = 24 MEQ/L 6) CALCIUM (test code = 2209) 9.6 MG/DL PROTEIN, TOTAL (test code = 8.2 G/DL 2228) ALBUMIN (test code = 2201) 4.4 G/DL CALC GLOBULIN (test code = 3.8 G/DL 2240) CALC A/G RATIO (test code = 1.2 RATIO 2234) BILIRUBIN, TOTAL (test code = 0.3 MG/DL 2206) ALKALINE PHOSPHATASE (test 130 U/L code = 2204) AST (test code = 2218) 17 U/L ALT (test code = 2219) 21 U/L COMPREHENSIVE METABOLIC [id number] 00:00:00 Test Item Value Reference Range Interpretation Comments GLUCOSE (test code = 2217) 93 MG/DL BUN (test code = 2208) 21 MG/DL CREATININE (test code = 2214) 0.78 MG/DL eGFR AMER. (test code 123 ML/MIN/1.73 = 00525) eGFR NON- AMER. (test 106 ML/MIN/1.73 code = 87966) CALC BUN/CREAT (test code = 27 RATIO [...] CALC GLOBULIN (test code = 3.8 G/DL 2239) CALC A/G RATIO (test code = 1.2 RATIO 4) BILIRUBIN, TOTAL (test code = 0.3 MG/DL 2206) ALKALINE PHOSPHATASE (test 130 U/L code = 2204) AST (test code = 2218) 17 U/L ALT (test code = 2219) 21 U/L CULTURE, [id number] 00:00:00 Test Item Value Reference Range Interpretation Comments CULTURE, URINE (test SPECIMEN NUMBER: code = 65014) [id number] CULTURE, [id number] 00:00:00 Test Item Value Reference Range Interpretation Comments CULTURE, URINE (test SPECIMEN NUMBER: code = 96014) [id number] COMPREHENSIVE METABOLIC [id number] 00:00:00 Test Item Value Reference Range Interpretation Comments GLUCOSE (test code = 2217) 93 MG/DL BUN (test code = 2208) 21 MG/DL CREATININE (test code = 2214) 0.78 MG/DL eGFR AMER. (test code 123 ML/MIN/1.73 = 75525) eGFR NON- AMER. (test 106 ML/MIN/1.73 code = 05184) CALC BUN/CREAT (test code = 27 RATIO 2235) SODIUM (test code = 2231) 144 MEQ/L POTASSIUM (test code = 2228) 4.4 MEQ/L CHLORIDE (test code = 2215) 104 MEQ/L CARBON DIOXIDE (test code = 24 MEQ/L 220) CALCIUM (test code = 2209) 9.6 MG/DL PROTEIN, TOTAL (test code = 8.2 G/DL 2228) ALBUMIN (test code = 2201) 4.4 G/DL CALC GLOBULIN (test code = 3.8 G/DL 2240) CALC A/G RATIO (test code = 1.2 RATIO 2234) BILIRUBIN, TOTAL (test code = 0.3 MG/DL 2206) ALKALINE PHOSPHATASE (test 130 U/L code = 2204) AST (test code = 2218) 17 U/L ALT (test code = 2219) 21 U/L COMPREHENSIVE METABOLIC [id number] 00:00:00 Test Item Value Reference Range Interpretation Comments GLUCOSE (test code = 2217) 93 MG/DL BUN (test code = 2208) 21 MG/DL CREATININE (test code = 2214) 0.78 MG/DL eGFR AMER. (test code 123 ML/MIN/1.73 = 97113) eGFR NON- AMER. (test 106 ML/MIN/1.73 code = 87670) CALC BUN/CREAT (test code = 27 RATIO [...] CALC GLOBULIN (test code = 3.8 G/DL 2240) CALC A/G RATIO (test code = 1.2 RATIO 2234) BILIRUBIN, TOTAL (test code = 0.3 MG/DL 2206) ALKALINE PHOSPHATASE (test 130 U/L code = 2204) AST (test code = 2218) 17 U/L ALT (test code = 2219) 21 U/L COMPREHENSIVE METABOLIC [id number] 00:00:00 Test Item Value Reference Range Interpretation Comments GLUCOSE (test code = 2217) 93 MG/DL BUN (test code = 2208) 21 MG/DL CREATININE (test code = 2214) 0.78 MG/DL eGFR AMER. (test code 123 ML/MIN/1.73 = 20623) eGFR NON- AMER. (test 106 ML/MIN/1.73 code = 29296) CALC BUN/CREAT (test code = 27 RATIO 2235) SODIUM (test code = 2231) 144 MEQ/L POTASSIUM (test code = 2228) 4.4 MEQ/L CHLORIDE (test code = 2215) 104 MEQ/L CARBON DIOXIDE (test code = 24 MEQ/L 2205) CALCIUM (test code = 2209) 9.6 MG/DL PROTEIN, TOTAL (test code = 8.2 G/DL 2228) ALBUMIN (test code = 220) 4.4 G/DL CALC GLOBULIN (test code = 3.8 G/DL 2239) CALC A/G RATIO (test code = 1.2 RATIO 2233) BILIRUBIN, TOTAL (test code = 0.3 MG/DL 2206) ALKALINE PHOSPHATASE (test 130 U/L code = 220) AST (test code = 2218) 17 U/L ALT (test code = 2219) 21 U/L CULTURE, [id number] 00:00:00 Test Item Value Reference Range Interpretation Comments CULTURE, URINE (test SPECIMEN NUMBER: code = 99542) [id number] CULTURE, [id number] 00:00:00 Test Item Value Reference Range Interpretation Comments CULTURE, URINE (test SPECIMEN NUMBER: code = 17912) [id number] CULTURE, [id number] 00:00:00 Test Item Value Reference Range Interpretation Comments CULTURE, URINE (test SPECIMEN NUMBER: code = 40325) [id number] CBC W/AUTO [id number] 00:00:00 Test Item Value Reference Range Interpretation [...] NUCLEATED RBCS (test code = 0.00 K/UL 15291) CBC W/AUTO [id number] 00:00:00 Test Item Value Reference Range Interpretation [...] NUCLEATED RBCS (test code = 0.00 K/UL 56831) CBC W/AUTO [id number] 00:00:00 Test Item Value Reference Range Interpretation [...] NUCLEATED RBCS (test code = 0.00 K/UL 86171) CBC W/AUTO [id number] 00:00:00 Test Item Value Reference Range Interpretation [...] NUCLEATED RBCS (test code = 0.00 K/UL 64431) CBC W/AUTO [id number] 00:00:00 Test Item Value Reference Range Interpretation [...] NUCLEATED RBCS (test code = 0.00 K/UL 68082) CBC W/AUTO [id number] 00:00:00 Test Item Value Reference Range Interpretation [...] NUCLEATED RBCS (test code = 0.00 K/UL 10559) CBC W/AUTO [id number] 00:00:00 Test Item Value Reference Range Interpretation [...] NUCLEATED RBCS (test code = 0.00 K/UL 72543) CBC W/AUTO [id number] 00:00:00 Test Item Value Reference Range Interpretation [...] NUCLEATED RBCS (test code = 0.00 K/UL 00461) COMPREHENSIVE METABOLIC [id number] 00:00:00 Test Item Value Reference Range Interpretation Comments GLUCOSE (test code = 2217) 75 MG/DL BUN (test code = 2208) 12 MG/DL CREATININE (test code = 2214) 0.56 MG/DL eGFR AMER. (test code 154 ML/MIN/1.73 = 12248) eGFR NON- AMER. (test 133 ML/MIN/1.73 code = 38945) CALC BUN/CREAT (test code = 21 RATIO 2235) SODIUM (test code = 2231) 141 MEQ/L POTASSIUM (test code = 2228) 4.3 MEQ/L CHLORIDE (test code = 2215) 103 MEQ/L CARBON DIOXIDE (test code = 23 MEQ/L 2205) CALCIUM (test code = 2209) 10.1 MG/DL PROTEIN, TOTAL (test code = 7.9 G/DL 2228) ALBUMIN (test code = 2201) 4.6 G/DL CALC GLOBULIN (test code = 3.3 G/DL 2240) CALC A/G RATIO (test code = 1.4 RATIO 2234) BILIRUBIN, TOTAL (test code = 0.4 MG/DL 2207) ALKALINE PHOSPHATASE (test 92 U/L code = 2204) AST (test code = 2218) 15 U/L ALT (test code = 2219) 14 U/L COMPREHENSIVE METABOLIC [id number] 00:00:00 Test Item Value Reference Range Interpretation Comments GLUCOSE (test code = 2217) 75 MG/DL BUN (test code = 2208) 12 MG/DL CREATININE (test code = 2214) 0.56 MG/DL eGFR AMER. (test code 154 ML/MIN/1.73 = 16982) eGFR NON- AMER. (test 133 ML/MIN/1.73 code = 06424) CALC BUN/CREAT (test code = 21 RATIO 2235) SODIUM (test code = 2231) 141 MEQ/L POTASSIUM (test code = 2228) 4.3 MEQ/L CHLORIDE (test code = 2215) 103 MEQ/L CARBON DIOXIDE (test code = 23 MEQ/L 2205) CALCIUM (test code = 2209) 10.1 MG/DL PROTEIN, TOTAL (test code = 7.9 G/DL 2228) ALBUMIN (test code = 2201) 4.6 G/DL CALC GLOBULIN (test code = 3.3 G/DL 2240) CALC A/G RATIO (test code = 1.4 RATIO 2234) BILIRUBIN, TOTAL (test code = 0.4 MG/DL 2206) ALKALINE PHOSPHATASE (test 92 U/L code = 2204) AST (test code = 2218) 15 U/L ALT (test code = 2219) 14 U/L LIPID [id number] 00:00:00 Test Item Value Reference Range Interpretation Comments CHOLESTEROL (test code = 2210) 152 MG/DL TRIGLYCERIDES (test code = 2232) 86 MG/DL HDL CHOLESTEROL (test code = 2220) 37 MG/DL CALC LDL CHOL (test code = 2237) 98 MG/DL RISK RATIO LDL/HDL (test code = 2.64 RATIO 2238) LIPID [id number] 00:00:00 Test Item Value Reference Range Interpretation Comments CHOLESTEROL (test code = 2210) 152 MG/DL TRIGLYCERIDES (test code = 2232) 86 MG/DL HDL CHOLESTEROL (test code = 2220) 37 MG/DL CALC LDL CHOL (test code = 2237) 98 MG/DL RISK RATIO LDL/HDL (test code = 2.64 RATIO 2238) [id number] 00:00:00 Test Item Value Reference Range Interpretation Comments LIPASE (test code = 2057) 21 U/L [id number] 00:00:00 Test Item Value Reference Range Interpretation Comments LIPASE (test code = 2057) 21 U/L [id number] 00:00:00 Test Item Value Reference Range Interpretation Comments LIPASE (test code = 8) 21 U/L [id number] 00:00:00 Test Item Value Reference Range Interpretation Comments AMYLASE (test code = 2205) 53 U/L [id number] 00:00:00 Test Item Value Reference Range Interpretation Comments AMYLASE (test code = 2205) 53 U/L COMPREHENSIVE METABOLIC [id number] 00:00:00 Test Item Value Reference Range Interpretation Comments GLUCOSE (test code = 2217) 75 MG/DL BUN (test code = 2208) 12 MG/DL CREATININE (test code = 2214) 0.56 MG/DL eGFR AMER. (test code 154 ML/MIN/1.73 = 34381) eGFR NON- AMER. (test 133 ML/MIN/1.73 code = 20610) CALC BUN/CREAT (test code = 21 RATIO 2235) SODIUM (test code = 2231) 141 MEQ/L POTASSIUM (test code = 2228) 4.3 MEQ/L CHLORIDE (test code = 2215) 103 MEQ/L CARBON DIOXIDE (test code = 23 MEQ/L 2205) CALCIUM (test code = 2209) 10.1 MG/DL PROTEIN, TOTAL (test code = 7.9 G/DL 2228) ALBUMIN (test code = 2201) 4.6 G/DL CALC GLOBULIN (test code = 3.3 G/DL 2239) CALC A/G RATIO (test code = 1.4 RATIO 2233) BILIRUBIN, TOTAL (test code = 0.4 MG/DL 2206) ALKALINE PHOSPHATASE (test 92 U/L code = 2204) AST (test code = 2218) 15 U/L ALT (test code = 2219) 14 U/L LIPID [id number] 00:00:00 Test Item Value Reference Range Interpretation Comments CHOLESTEROL (test code = 2210) 152 MG/DL TRIGLYCERIDES (test code = 2232) 86 MG/DL HDL CHOLESTEROL (test code = 2220) 37 MG/DL CALC LDL CHOL (test code = 2237) 98 MG/DL RISK RATIO LDL/HDL (test code = 2.64 RATIO 2238) COMPREHENSIVE METABOLIC [id number] 00:00:00 Test Item Value Reference Range Interpretation Comments GLUCOSE (test code = 2217) 75 MG/DL BUN (test code = 2208) 12 MG/DL CREATININE (test code = 2214) 0.56 MG/DL eGFR AMER. (test code 154 ML/MIN/1.73 = 20065) eGFR NON- AMER. (test 133 ML/MIN/1.73 code = 28468) CALC BUN/CREAT (test code = 21 RATIO 2235) SODIUM (test code = 2231) 141 MEQ/L POTASSIUM (test code = 2228) 4.3 MEQ/L CHLORIDE (test code = 2215) 103 MEQ/L CARBON DIOXIDE (test code = 23 MEQ/L 2206) CALCIUM (test code = 2209) 10.1 MG/DL PROTEIN, TOTAL (test code = 7.9 G/DL 222) ALBUMIN (test code = 2201) 4.6 G/DL CALC GLOBULIN (test code = 3.3 G/DL 2240) CALC A/G RATIO (test code = 1.4 RATIO 2234) BILIRUBIN, TOTAL (test code = 0.4 MG/DL 220) ALKALINE PHOSPHATASE (test 92 U/L code = 2204) AST (test code = 2218) 15 U/L ALT (test code = 2219) 14 U/L COMPREHENSIVE METABOLIC [id number] 00:00:00 Test Item Value Reference Range Interpretation Comments GLUCOSE (test code = 2217) 75 MG/DL BUN (test code = 2208) 12 MG/DL CREATININE (test code = 2214) 0.56 MG/DL eGFR AMER. (test code 154 ML/MIN/1.73 = 09911) eGFR NON- AMER. (test 133 ML/MIN/1.73 code = 46866) CALC BUN/CREAT (test code = 21 RATIO 2235) SODIUM (test code = 2231) 141 MEQ/L POTASSIUM (test code = 2228) 4.3 MEQ/L CHLORIDE (test code = 2215) 103 MEQ/L CARBON DIOXIDE (test code = 23 MEQ/L 2206) CALCIUM (test code = 2209) 10.1 MG/DL PROTEIN, TOTAL (test code = 7.9 G/DL 2228) ALBUMIN (test code = 2201) 4.6 G/DL CALC GLOBULIN (test code = 3.3 G/DL 2240) CALC A/G RATIO (test code = 1.4 RATIO 2234) BILIRUBIN, TOTAL (test code = 0.4 MG/DL 2207) ALKALINE PHOSPHATASE (test 92 U/L code = 2204) AST (test code = 2218) 15 U/L ALT (test code = 2219) 14 U/L LIPID [id number] 00:00:00 Test Item Value Reference Range Interpretation Comments CHOLESTEROL (test code = 2210) 152 MG/DL TRIGLYCERIDES (test code = 2232) 86 MG/DL HDL CHOLESTEROL (test code = 2220) 37 MG/DL CALC LDL CHOL (test code = 2237) 98 MG/DL RISK RATIO LDL/HDL (test code = 2.64 RATIO 2238) LIPID [id number] 00:00:00 Test Item Value Reference Range Interpretation Comments CHOLESTEROL (test code = 2210) 152 MG/DL TRIGLYCERIDES (test code = 2232) 86 MG/DL HDL CHOLESTEROL (test code = 2220) 37 MG/DL CALC LDL CHOL (test code = 2237) 98 MG/DL RISK RATIO LDL/HDL (test code = 2.64 RATIO 2238) [id number] 00:00:00 Test Item Value Reference Range Interpretation Comments LIPASE (test code = 2057) 21 U/L [id number] 00:00:00 Test Item Value Reference Range Interpretation Comments LIPASE (test code = 2057) 21 U/L [id number] 00:00:00 Test Item Value Reference Range Interpretation Comments LIPASE (test code = 2057) 21 U/L [id number] 00:00:00 Test Item Value Reference Range Interpretation Comments AMYLASE (test code = 2205) 53 U/L [id number] 00:00:00 Test Item Value Reference Range Interpretation Comments AMYLASE (test code = 2205) 53 U/L [id number] 00:00:00 Test Item Value Reference Range Interpretation Comments LIPASE (test code = 2057) 21 U/L [id number] 00:00:00 Test Item Value Reference Range Interpretation Comments LIPASE (test code = 2057) 21 U/L [id number] 00:00:00 Test Item Value Reference Range Interpretation Comments AMYLASE (test code = 2205) 53 U/L
--- NOTE | 2022-11-18 05:50 | ER ---
Nurse's Notes [facility] Name: Vira Silva Age: 27 yrs Sex: Female : 1995 Arrival Date: 11/18/2022 Time: 04:11 Bed 19 Private MD: Diagnosis: Acute serous otitis media, left ear;Acute upper respiratory infection, unspecified Presentation: 11/18 04:45 Chief complaint: Patient states: "My left ear hurts after putting peroxide in it vc1 earlier tonight.". Coronavirus screen: Vaccine status: Patient reports receiving the 2nd dose of the covid vaccine. Pfizer At this time, the client does not indicate any symptoms associated with coronavirus-19. Ebola Screen: No symptoms or risks identified at this time. Initial Sepsis Screen: Does the patient meet any 2 criteria? No. Patient's initial sepsis screen is negative. Does the patient have a suspected source of infection? No. Patient's initial sepsis screen is negative. Risk Assessment: Do you want to hurt yourself or someone else? Patient reports no desire to harm self or others. Onset of symptoms was November 18, 2022 at 02:00. 04:45 Method Of Arrival: Ambulatory vc1 04:45 Acuity: SERGIO 4 vc1 Triage Assessment: 04:47 General: Appears in no apparent distress. uncomfortable, Behavior is calm, cooperative, vc1 appropriate for age. Pain: Complains of pain in left ear Pain currently is 10 out of 10 on a pain scale. EENT: Reports pain in left ear. Neuro: No deficits noted. Cardiovascular: No deficits noted. Respiratory: Airway is patent Respiratory effort is even, unlabored, Respiratory pattern is regular, symmetrical. GI: No deficits noted. No signs and/or symptoms were reported involving the gastrointestinal system. : No deficits noted. No signs and/or symptoms were reported regarding the genitourinary system. Derm: No deficits noted. No signs and/or symptoms reported regarding the dermatologic system. Musculoskeletal: No deficits noted. No signs and/or symptoms reported regarding the musculoskeletal system. 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 - Social history:: Smoking status: Patient denies any tobacco usage or history of. Screenin:48 [facility] ED Fall Risk Assessment (Adult) History of falling in the last 3 months, vc1 including since admission No falls in past 3 months (0 pts) Confusion or Disorientation No (0 pts) Intoxicated or Sedated No (0 pts) Impaired Gait No (0 pts) Mobility Assist Device Used No (0 pt) Altered Elimination No (0 pt) Score/Fall Risk Level 0 - 2 = Low Risk. Abuse screen: Denies threats or abuse. Nutritional screening: No deficits noted. Tuberculosis screening: No symptoms or risk factors identified. Assessment: 06:50 General: see triage assessment . as6 Vital Signs: 04:45 BP 112 / 74; Pulse 97; Resp 15; Temp 97.5; Pulse Ox 99% ; Weight 95.25 kg; Height 5 ft. vc1 1 in. (154.94 cm); Pain 10/10; 06:50 BP 113 / 76; Pulse 87; Resp 18 S; Pulse Ox 98% on R/A; as6 04:45 Body Mass Index 39.68 (95.25 kg, 154.94 cm) vc1 ED Course: 04:11 Patient arrived in ED. jj6 04:38 Kiko Bruce RN is Primary Nurse. as6 04:40 Sanjay Corrigan MD is Attending Physician. kalyan 04:47 Triage completed. vc1 04:48 Arm band placed on right wrist. vc1 04:49 Patient has correct armband on for positive identification. Bed in low position. Call vc1 light in reach. Pulse ox on. NIBP on. 06:50 No provider procedures requiring assistance completed. Patient did not have IV access as6 during this emergency room visit. Administered Medications: 06:49 Drug: Rocephin (cefTRIAXone) 1 grams Route: IM; Site: right ventrogluteal; as6 06:49 Follow up: Response: No adverse reaction as6 06:49 Drug: Motrin (ibuprofen) 600 mg Route: PO; as6 06:50 Follow up: Response: No adverse reaction as6 06:49 Drug: Augmentin (Amoxicillin-Clavulanate) 875 mg Route: PO; as6 06:50 Follow up: Response: No adverse reaction as6 Medication: 04:50 VIS not applicable for this client. vc1 Outcome: 05:49 Discharge ordered by . kalyan 06:50 Discharged to home ambulatory. as6 06:50 Condition: stable 06:50 Discharge instructions given to patient, Instructed on discharge instructions, follow up and referral plans. medication usage, Demonstrated understanding of instructions, follow-up care, medications, Prescriptions given X 4. 06:51 Patient left the ED. as6 Signatures: Sanjay Corrigan MD MD cha Jeffries, Jennifer jj6 Kiko Bruce, RN RN as6 Vira Kirk RN RN vc1
--- NOTE | 2022-11-18 05:50 | EDPHYS ---
Physician Documentation [facility] Name: Vira Silva Age: 27 yrs Sex: Female : 1995 Arrival Date: 11/18/2022 Time: 04:11 Bed 19 Private MD: ED Physician Sanjay Corrigan HPI: 11/18 05:45 This 27 yrs old Female presents to ER via Ambulatory with complaints of Ear kalyan Pain. 05:45 The patient presents with swelling, tenderness. The complaints affect the left ear. kalyan Onset: The symptoms/episode began/occurred 2 day(s) ago. Modifying factors: The symptoms are alleviated by nothing, the symptoms are aggravated by nothing. Associated signs and symptoms: The patient has no apparent associated signs or symptoms. Severity of symptoms: At their worst the symptoms were moderate in the emergency department the symptoms are unchanged. The patient has not experienced similar symptoms in the past. 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 - Social history:: Smoking status: Patient denies any tobacco usage or history of. ROS: 05:46 Constitutional: Negative for fever, chills, and weight loss, Eyes: Negative for injury, kalyan pain, redness, and discharge, Neck: Negative for injury, pain, and swelling, Cardiovascular: Negative for chest pain, palpitations, and edema, Respiratory: Negative for shortness of breath, cough, wheezing, and pleuritic chest pain, Abdomen/GI: Negative for abdominal pain, nausea, vomiting, diarrhea, and constipation, Back: Negative for injury and pain, : Negative for injury, bleeding, discharge, and swelling, MS/Extremity: Negative for injury and deformity, Skin: Negative for injury, rash, and discoloration, Neuro: Negative for headache, weakness, numbness, tingling, and seizure, Psych: Negative for depression, anxiety, suicide ideation, homicidal ideation, and hallucinations, Allergy/Immunology: Negative for hives, rash, and allergies, Endocrine: Negative for neck swelling, polydipsia, polyuria, polyphagia, and marked weight changes, Hematologic/Lymphatic: Negative for swollen nodes, abnormal bleeding, and unusual bruising. 05:46 ENT: Positive for ear pain. Exam: 05:46 Constitutional: This is a well developed, well nourished patient who is awake, alert, kalyan and in no acute distress. Head/Face: Normocephalic, atraumatic. Eyes: Pupils equal round and reactive to light, extra-ocular motions intact. Lids and lashes normal. Conjunctiva and sclera are non-icteric and not injected. Cornea within normal limits. Periorbital areas with no swelling, redness, or edema. Neck: Trachea midline, no thyromegaly or masses palpated, and no cervical lymphadenopathy. Supple, full range of motion without nuchal rigidity, or vertebral point tenderness. No Meningismus. Chest/axilla: Normal chest wall appearance and motion. Nontender with no deformity. No lesions are appreciated. Cardiovascular: Regular rate and rhythm with a normal S1 and S2. No gallops, murmurs, or rubs. Normal PMI, no JVD. No pulse deficits. Respiratory: Lungs have equal breath sounds bilaterally, clear to auscultation and percussion. No rales, rhonchi or wheezes noted. No increased work of breathing, no retractions or nasal flaring. Abdomen/GI: Soft, non-tender, with normal bowel sounds. No distension or tympany. No guarding or rebound. No evidence of tenderness throughout. Back: No spinal tenderness. No costovertebral tenderness. Full range of motion. Skin: Warm, dry with normal turgor. Normal color with no rashes, no lesions, and no evidence of cellulitis. MS/ Extremity: Pulses equal, no cyanosis. Neurovascular intact. Full, normal range of motion. Neuro: Awake and alert, GCS 15, oriented to person, place, time, and situation. Cranial nerves II-XII grossly intact. Motor strength 5/5 in all extremities. Sensory grossly intact. Cerebellar exam normal. Normal gait. Psych: Awake, alert, with orientation to person, place and time. Behavior, mood, and affect are within normal limits. 05:46 ENT: TM's: dullness, on the left, erythema. Vital Signs: 04:45 BP 112 / 74; Pulse 97; Resp 15; Temp 97.5; Pulse Ox 99% ; Weight 95.25 kg; Height 5 ft. vc1 1 in. (154.94 cm); Pain 10/10; 06:50 BP 113 / 76; Pulse 87; Resp 18 S; Pulse Ox 98% on R/A; as6 04:45 Body Mass Index 39.68 (95.25 kg, 154.94 cm) vc1 MDM: 04:40 Patient medically screened. kalyan 05:48 Differential diagnosis: otitis media, otitis externa, ruptured TM, foreign body, acute kalyan otalgia, cerumen impaction. Data reviewed: vital signs, nurses notes. 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 rate is 97 beats/min, rhythm is regular, Pulse oximetry: on room air is 99 %. Counseling: I had a detailed discussion with the patient and/or guardian regarding: the historical points, exam findings, and any diagnostic results supporting the discharge/admit diagnosis, the need for outpatient follow up, for definitive care, a family practitioner. Administered Medications: 06:49 Drug: Rocephin (cefTRIAXone) 1 grams Route: IM; Site: right ventrogluteal; as6 06:49 Follow up: Response: No adverse reaction as6 06:49 Drug: Motrin (ibuprofen) 600 mg Route: PO; as6 06:50 Follow up: Response: No adverse reaction as6 06:49 Drug: Augmentin (Amoxicillin-Clavulanate) 875 mg Route: PO; as6 06:50 Follow up: Response: No adverse reaction as6 Disposition Summary: 11/18/22 05:49 Discharge Ordered Location: Home kalyan Problem: new kalyan Symptoms: have improved kalyan Condition: Stable kalyan Diagnosis - Acute serous otitis media, left ear kalyan - Acute upper respiratory infection, unspecified kalyan Followup: kalyan - With: Private Physician - When: 2 - 3 days - Reason: Recheck today's complaints, Continuance of care, Re-evaluation by your physician Discharge Instructions: - Discharge Summary Sheet kalyan - Otitis Media, Adult kalyan - Otitis Media, Adult, [id number] kalyan - Upper Respiratory Infection, Adult kalyan - Upper Respiratory Infection, Adult, [id number] kalyan Forms: - Medication Reconciliation Form kalyan - Thank You Letter kalyan - Antibiotic Education kalyan - Prescription Opioid Use kalyan Prescriptions: - Augmentin 875-125 mg Oral Tablet - take 1 tablet by ORAL route every 12 hours for 10 days; 20 tablet; Refills: 0, [facility] Product Selection Permitted - Ibuprofen 600 mg Oral Tablet - take 1 tablet by ORAL route every 6 hours As needed take with food; 20 tablet; kalyan Refills: 0, Product Selection Permitted - Priscilla-D 12 Hour 60-120 mg Oral Tablet Sustained Release 12 hr - take 1 tablet by ORAL route every 12 hours As needed; 20 tablet; Refills: 0, [facility] Product Selection Permitted - Medrol (Ramin) 4 mg Oral Tablets, Dose Pack - take 1 tablet by ORAL route as directed - follow package instructions; 1 kalyan packet; Refills: 0, Product Selection Permitted Signatures: Sanjay Corrigan MD MD cha Slawson, Ashby RN RN as6 Vira Kirk RN RN vc1
[2022-11-18] MEDS ORDERED: IBUPROFEN 400 MG TAB ONE (06:42)
[2022-11-18] MEDS ORDERED: AMOX/K CLAV 875 MG TAB ONE (06:42)
[2022-11-18] MEDS ORDERED: IBUPROFEN 200 MG TAB PO ONE ×2 (06:42→06:47)
[2022-11-18] MEDS ORDERED: LIDOCAINE 1% MPF 2 ML AMPULE ONE (06:43)
[2022-11-18] MEDS ORDERED: CEFTRIAXONE 1000 MG/VIAL ONE (06:43)
[2022-11-18 06:55] VITALS: TEMP 97.5
[2022-11-18 06:56] VITALS: BP 113/76; O2SAT 98
== END 2022-11-18 06:51 | disposition home or self-care (01) ==
LOC: ER 04:08
DX: H65.02 Acute serous otitis media, left ear (principal); J06.9 Acute upper respiratory infection, unspecified
CPT/HCPCS: 96372; 99283

== ENCOUNTER → 2023-11-22 | Emergency (ER) | payer OTHER ==
--- OUTSIDE RECORDS SUMMARY | 2023-11-22 19:11 | XMS REPORT | Continuity of Care Document ---
Author Name Unknown Address [address] [facility] [address] [place] [address] [facility] thconnect Address [address] [facility] [place] [address] Care Team Providers Care Sheet Metal Former Name Role Phone LIBERTAD BACON Primary Care Physician Unav ailable JAN YATES Attending Clinician Unavailable KO KELLEY Attending Clinician Unavailable Trudy DURAN, Jan Sears Attending Clinician [phone] Jada Caballero LMSW Attending Clinician Unava ilable Jeanette Maher PA-C Attending Clinician [phone] LIBERTAD BACON Attending Clinician Unavail able Doctor Unassigned, [place] Attending Clinician U navailable Uziel Leonard Attending Clinician + [phone] UZIEL DICKEY Attending Clinician Unavailab gladys Camacho RN, Supriya Mayes Attending Clinician Unavail able Eliezer DURAN, Drake Carmona Attending Clinician + [phone] Marshall DURAN, Maria Isabel Main Attending Clinician [phone] Agustin Gillette MD Attending Clinician [phone] Autumn DURAN, Archie Sanchez Attending Clinician [phone] Albaro Khan DO Attending Clinician [phone] Libertad Urrutia Attending Clinician + Ultrasound, [facility] Attending Clinician Wicho Sandoval MD, Nolberto R Attending Clinician [phone] Lab, [facility] Attending Clinician Unavailable 3, [facility] Usg Room Attending Clinician Wicho ahn 1, [facility] Room Attending Clinician Wicho Krause MD, Ranjith Main Attending Clinician [phone] MARIA ISABEL LAUREANO Admitting Clinician Unavailable DRAKE MARTINS Admitting Clinician Maria Isabel Morales MD Admitting Clinician [phone] Payers Payer Name Policy Type Policy Number Effective Date Expirati on Date Source [employer] [id number] 2016 00:00:00 Problems Condition Name Condition Details Condition Category Status Onset Date Resolution Date Last Treatment Date Treating Clinician Comments Source Morbid obesity with body mass index of 40.0-49.9 Morbid obesity with body mass index of 40.0-49.9 Disease Active 15 00:00: 00 [facility] Rubella non-immune status, antepartum Rubella non-immune status, antepartum Disease Active 2019-11 00:00: 00 Overview: Formattin g of this note might be different from the original. Address [facility] Maternal varicella, non-immune Maternal varicella, non-immune Disease Active 2019-11 00:00: 00 Overview: Formattin g of this note might be different from the original. Address pp [facility] Multiparit y Multiparit y Disease Active 2019-11 00:00: 00 [facility] Allergies, Adverse Reactions, Alerts Allergy Name Allergy Type Status Severity Reaction(s) Onset Date Inactive Date Treating Clinician Comments Source NO KNOWN ALLERGIE S Drug Class Active [facility] Social History Social Habit Start Date Stop Date Quantity Comments Source Alcohol intake 2021-09-20 00:00:00 2021-09-20 00:00:00 Current non-drinker of alcohol (finding) [facility] Tobacco use and exposure 2015-05-16 00:00:00 2015-05-16 00:00:[address] [facility] Sex Assigned At 1995 00:00:00 1996 00:00:00 [facility] Smoking Status Start Date Stop Date Source Never smoker [facility] Medications Ordered Medication Name Filled Medication Name Start Date Stop Date Current Medication? Ordering Clinician Indication Dosage Frequency Signature (SIG) Comments Components Source No known medications 2020-11 09:05: 36 No [facility] Vital Signs Vital Name Observation Time Observation Value Comments S our Systolic blood pressure 2021-09-20 13:32:00 98 mm[Hg] [facility] Diastolic blood pressure 2021-09-20 13:32:00 67 mm[Hg] [facility] Heart rate 2021-09-20 13:32:00 92 /min [facility] Respiratory rate 2021-09-20 13:32:00 18 /min 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 [id number] [facility] 2021-09-16 00:32:22 Inpatient P [facility] TEAM [employer] ASSEM[employer]ER [id number] [facility] 2021-09-15 20:36:11 Outpatient [facility] [id number] [facility] 2023-11-21 10:35:46 2023-11-21 10:35:46 Outpatient [facility] S[facility] [id number] Preet Solitario 2023-04-28 15:55:39 2023-04-28 15:55:39 Outpatient SFA SFA [id number] Preet Solitario 2023-03-14 09:22:37 2023-03-14 09:22:37 Outpatient SFA SFA [id number] Preet Solitario 2023-02-27 13:26:09 2023-02-27 13:26:09 Outpatient SFA SFA [id number] Preet Solitario 2022-10-27 10:54:09 2022-10-27 10:54:09 Outpatient [facility] [id number] Preet Solitario 2022-03-21 09:30:00 2022-03-21 09:30:00 Outpatient R TRUDY JAN [facility] [id number] [facility] 2022-03-21 09:30:00 2022-03-21 09:30:00 Outpatient R TRUDY JAN [facility] [id number] [facility] 2021-12-11 10:45:00 2021-12-11 10:45:00 Outpatient KO ESPINO [facility] [id number] [facility] 2021-09-20 08:30:00 2021-09-20 09:07:04 Outpatient R YATES JAN [facility] [id number] [facility] 2021-09-20 08:23:27 2021-09-20 09:07:04 Office Visit Jan Yates [facility] .114 350.1.13.10 4.2.7.2.686 [id number] [facility] 2021-09-20 08:30:00 2021-09-20 08:30:00 Outpatient R TRUDY JAN [facility] [id number] [facility] 2021-08-30 00:00:00 2021-08-30 00:00:00 Case Management Jada Caballero ..114 350.1.13.10 4.2.7.2.686 [id number] [facility] 2021-08-01 00:00:00 2021-08-01 00:00:00 Telephone Jeanette Maher [facility] 1.84.114 350.1.13.10 4.2.7.2.686 [id number] [facility] 2021-07-26 12:45:00 2021-07-26 12:45:00 Outpatient R JAN YATES [facility] [id number] [facility] 2021-07-25 00:00:00 2021-07-25 00:00:00 Telephone Jan Yates [facility] 1.84.114 350.1.13.10 4.2.7.2.686 [id number] [facility] 2021-07-19 13:30:16 2021-07-19 14:08:41 Office Visit Jan Yates [facility] 1..114 350.1.13.10 4.2.7.2.686 [id number] [facility] 2021-07-19 13:30:00 2021-07-19 13:30:00 Outpatient R JAN YATES [facility] [id number] [facility] 2021-05-29 15:15:00 2021-05-29 15:15:00 Outpatient R LIBERTAD BACON [facility] [id number] [facility] 2021-05-15 00:00:00 2021-05-15 00:00:00 Orders Only Doctor Unassigned, [place] [facility] 1.84.114 350.1.13.10 4.2.7.2.686 [id number] 2021-05-15 00:00:00 2021-05-15 00:00:00 Orders Only Doctor Unassigned, [place] [facility] 1.114 350.1.13.10 4.2.7.2.686 [id number] [facility] 2021-05-08 15:10:42 2021-05-08 15:39:26 Routine Visit Uziel Dickey [facility] PLUM PACK[facility] 1.2.840.114 350.1.13.10 4.2.7.2.686 [id number] 2021-05-08 15:10:42 2021-05-08 15:39:26 Routine Visit Uziel Dickey [facility] PLUM P[employer] 1.2.840.114 350.1.13.10 4.2.7.2.686 [id number] [facility] 2021-05-08 15:00:00 2021-05-08 15:00:00 Outpatient R UZIEL DICKEY [facility] [id number] [facility] 2021-05-06 00:00:00 2021-05-06 00:00:00 Transition of Care Ishmaria alejandraSupriya 1.2.840.114 350.1.13.10 4.2.7.2.686 [id number] 2021-05-06 00:00:00 2021-05-06 00:00:00 Transition of Care Ishmaria alejandraSupriya 1.2.840.114 350.1.13.10 4.2.7.2.686 [id number] [facility] 2021-04-25 20:06:00 2021-05-03 10:30:00 Hospital Encounter MartinsDrake presley [facility] 1.2.840.114 350.1.13.10 4.2.7.2.686 [id number] 2021-04-25 20:06:00 2021-05-03 10:30:00 Hospital Encounter Martins, Drake [facility] 1.2.840.114 350.1.13.10 4.2.7.2.686 [id number] [facility] 2021-04-05 15:00:00 2021-04-08 13:00:00 Hospital Encounter Agustin Gillette 1.2.840.1 [id number] 3.104.2.7 .3.027253 .[id number] [facility] 2021-04-05 21:19:00 2021-04-06 13:54:00 Anesthesia Event Archie Leyva Tom 1.2.840.1 [id number] 3.104.2.7 .3.610141 .8 [id number] [facility] 2021-04-05 14:15:00 2021-04-05 14:15:00 Outpatient R LIBERTAD BACON [facility] [id number] [facility] 2021-04-05 00:00:00 2021-04-05 00:00:00 Travel 1.2.840.1 [id number] 3.104.2.7 .3.287991 .8 1.2.840.114 350.1.13.10 4.2.7.3.698 [id number] [facility] 2021-03-29 12:56:20 2021-03-29 13:26:57 Routine Visit Libertad Bacon [facility] PL[employer] P[employer] [facility] 1.2.840.114 350.1.13.10 4.2.7.2.686 [id number] 2021-03-29 12:56:20 2021-03-29 13:26:57 Routine Visit Libertad Bacon 1.2.840.1 [id number] 3.104.2.7 .3.539191 .8 [id number] [facility] 2021-03-29 13:00:00 2021-03-29 13:00:00 Outpatient R LIBERTAD BACON [facility] [id number] [facility] 2021-03-29 00:00:00 2021-03-29 00:00:00 Travel 1.2.840.1 [id number] 3.104.2.7 .3.651161 .8 1.2.840.114 350.1.13.10 4.2.7.3.698 [id number] [facility] 2021-03-27 00:00:00 2021-03-27 00:00:00 Travel 1.2.840.1 83072.1.1 3.104.2.7 .3.162533 .8 1.2.840.114 350.1.13.10 4.2.7.3.698 [id number] [facility] 2021-03-22 15:00:00 2021-03-22 15:00:00 Outpatient R LIBERTAD BACON [facility] [id number] [facility] 2021-03-15 13:06:32 2021-03-15 13:45:27 Routine Visit Libertad Bacon [facility] PLUM PACKER [facility] 1.2.840.114 350.1.13.10 4.2.7.2.686 [id number] 2021-03-15 13:06:32 2021-03-15 13:45:27 Routine Visit Libertad Bacon 1.2.840.1 33287.1.1 3.104.2.7 .3.394942 .8 [id number] [facility] 2021-03-15 13:00:00 2021-03-15 13:00:00 Outpatient R LIBERTAD BACON [facility] [id number] [facility] 2021-03-15 00:00:00 2021-03-15 00:00:00 Telephone Libertad Bacon [facility] PLUM P[employer]ER [facility] 1.2.840.114 350.1.13.10 4.2.7.2.686 [id number] 2021-03-15 00:00:00 2021-03-15 00:00:00 Telephone Arleen Libertad Pratt 1.2.840.1 [id number] 3.104.2.7 .3.882762 .8 [id number] [facility] 2021-03-15 00:00:00 2021-03-15 00:00:00 Travel 1.2.840.1 73825.1.1 3.104.2.7 .3.989330 .8 1.2.840.114 350.1.13.10 4.2.7.3.698 084.8 [id number] [facility] 2021-03-08 12:47:55 2021-03-08 13:16:26 Routine Visit Arleen Libertad Pratt 1.2.840.1 28653.1.1 3.104.2.7 .3.307302 .8 [id number] [facility] 2021-03-08 12:45:00 2021-03-08 12:45:00 Outpatient R LIBERTAD BACON [facility] [id number] [facility] 2021-03-08 00:00:00 2021-03-08 00:00:00 Travel 1.2.840.1 [id number] 3.104.2.7 .3.798380 .8 1.2.840.114 350.1.13.10 4.2.7.3.698 084.8 [id number] [facility] 2021-02-15 12:48:13 2021-02-15 13:26:32 Routine Visit Libertad Bacon 1.2.840.1 61576.1.1 3.104.2.7 .3.271252 .8 [id number] [facility] 2021-02-15 12:45:00 2021-02-15 12:45:00 Outpatient R LIBERTAD BACON [facility] [id number] [facility] 2021-02-15 00:00:00 2021-02-15 00:00:00 Travel 1.2.840.1 21543.1.1 3.104.2.7 .3.406720 .8 1.2.840.114 350.1.13.10 4.2.7.3.698 084.8 [id number] [facility] 2021-02-08 13:00:00 2021-02-08 13:00:00 Outpatient R LIBERTAD BACON [facility] [id number] [facility] 2021-01-25 09:30:30 2021-01-25 10:29:38 Routine Visit Libertad Bacon [facility] PL[employer] P[employer]ER [facility] 1..840.114 350.1.13.10 4.2.7.2.686 [id number] [facility] 2021-01-25 09:30:00 2021-01-25 09:30:00 Outpatient R LIBERTAD BACON [facility] [id number] [facility] 2021-01-11 10:53:27 2021-01-11 11:36:00 Routine Visit Libertad Bacon [facility] PLUM PACKER [facility] 1.2.840.114 350.1.13.10 4.2.7.2.686 [id number] [facility] 2021-01-11 11:00:00 2021-01-11 11:00:00 Outpatient R LIBERTAD BACON [facility] [id number] [facility] 2020-12-27 00:00:00 2020-12-27 00:00:00 Telephone Libertad Bacon [facility] PL[employer] P[employer]ER [facility] 1.2.840.114 350.1.13.10 4.2.7.2.686 [id number] [facility] 2020-12-21 00:00:00 2020-12-21 00:00:00 Orders Only Doctor Unassigned, [place] [facility] 1.2840.114 350.1.13.10 4.2.7.2.686 [id number] [facility] 2020-12-14 09:47:51 2020-12-14 10:56:01 Routine Visit Libertad Bacon [facility] PLUM PACKER [facility] 1.2840.114 350.1.13.10 4.2.7.2.686 [id number] [facility] 2020-12-14 09:45:00 2020-12-14 09:45:00 Outpatient R LIBERTAD BACON [facility] [id number] [facility] 2020-11-19 09:56:50 2020-11-19 11:27:45 Ceramic Engineer Visit Ultrasound, JeromeLibertad [place] R [facility] PLUM PACKER [facility] CHILD [facility] 1.2840.114 350.1.13.10 4.2.7.2.686 [id number] [facility] 2020-11-19 09:08:12 2020-11-19 09:40:42 Routine Visit Libertad Bacon [facility] PLUM PACKER [facility] 1.2840.114 350.1.13.10 4.2.7.2.686 [id number] [facility] 2020-11-19 09:15:00 2020-11-19 09:15:00 Outpatient R LIBERTAD BACON [facility] [id number] [facility] 2020-11-19 00:00:00 2020-11-19 00:00:00 Orders Only Doctor Unassigned, [place] [facility] 1.2.840.114 350.1.13.10 4.2.7.2.686 [id number] [facility] 2020-11-19 00:00:00 2020-11-19 00:00:00 Abstract Libertad Bacon [facility] PLUM PACKER [facility] 1..840.114 350.1.13.10 4.2.7.2.686 [id number] [facility] 2020-11-13 08:15:00 2020-11-13 08:15:00 Outpatient R LIBERTAD BACON [facility] [id number] [facility] 2020-11-06 13:15:00 2020-11-06 13:15:00 Outpatient R LIBERTAD BACON [facility] [id number] [facility] 2020-11-06 10:45:00 2020-11-06 10:45:00 Outpatient R LIBERTAD BACON [facility] [id number] [facility] 2020-10-10 09:45:00 2020-10-10 09:45:00 Outpatient R LIBERTAD BACON [facility] [id number] [facility] 2020-10-09 10:35:23 2020-10-09 10:50:23 Routine Visit Libertad Bacon [facility] PL[facility] P[employer]ER [facility] 1..840.114 350.1.13.10 4.2.7.2.686 [id number] [facility] 2020-10-09 10:45:00 2020-10-09 10:45:00 Outpatient R LIBERTAD BACON [facility] [id number] [facility] 2020-09-27 00:00:00 2020-09-27 00:00:00 Orders Only Doctor Unassigned, [place] [facility] 1..840.114 350.1.13.10 4.2.7.2.686 [id number] [facility] 2020-09-26 00:00:00 2020-09-26 00:00:00 Abstract Libertad Bacon [facility] PL[employer] P[employer]ER [facility] 1.2.840.114 350.1.13.10 4.2.7.2.686 [id number] [facility] 2020-09-26 00:00:00 2020-09-26 00:00:00 Abstract Libertad Bacon [facility] PLUM PACKER [facility] 1.2.840.114 350.1.13.10 4.2.7.2.686 [id number] [facility] 2020-09-24 14:44:26 2020-09-24 14:55:44 Ceramic Engineer Visit Lab, [facility] Maria Isabel Laureano [facility] 1.2.840.114 350.1.13.10 4.2.7.2.686 [id number] [facility] 2020-09-24 13:17:42 2020-09-24 14:32:26 Ceramic Engineer Visit 3, [facility] Room Maria Isabel Laureano [facility] 1.2840.114 350.1.13.10 4.2.7.2.686 [id number] [facility] 2020-09-24 13:00:00 2020-09-24 13:00:00 Outpatient P [facility] [id number] [facility] 2020-09-17 10:37:50 2020-09-17 11:36:49 Ceramic Engineer Visit 1, [facility] Room Ranjith Krause [facility] 1.2840.114 350.1.13.10 4.2.7.2.686 [id number] [facility] 2020-09-17 10:30:00 2020-09-17 10:30:00 Outpatient P [facility] [id number] [facility] 2020-09-17 00:00:00 2020-09-17 00:00:00 Telephone Libertad Bacon [facility] PLUM PACKER [facility] 1.2.840.114 350.1.13.10 4.2.7.2.686 [id number] [facility] 2020-09-17 00:00:00 2020-09-17 00:00:00 Abstract Libertad Bacon PRKERLINE PLUM PACKER [facility] 1.2.840.114 350.1.13.10 4.2.7.2.686 [id number] [facility] 2020-09-13 13:26:47 2020-09-14 09:39:46 Initial Visit Libertad Bacon PLUM PACKER [facility] 1.2.840.114 350.1.13.10 4.2.7.2.686 [id number] [facility] 2020-09-14 00:00:00 2020-09-14 00:00:00 Telephone Libertad Bacon [facility] PLUM PACKER [facility] 1.2.840.114 350.1.13.10 4.2.7.2.686 [id number] [facility] 2020-09-14 00:00:00 2020-09-14 00:00:00 Telephone Libertad Bacon PRKERLINE PLUM PACKER [facility] 1.2.840.114 350.1.13.10 4.2.7.2.686 [id number] [facility] 2020-09-14 00:00:00 2020-09-14 00:00:00 Telephone Libertad Bacon PRKERLINE PLUM PACKER [facility] 1.2.840.114 350.1.13.10 4.2.7.2.686 [id number] [facility] 2020-09-13 13:30:00 2020-09-13 13:30:00 Outpatient R LIBERTAD BACON [facility] [id number] [facility] 2020-09-13 00:00:00 2020-09-13 00:00:00 Orders Only Doctor Unassigned, [place] [facility] 1.2.840.114 350.1.13.10 4.2.7.2.686 [id number] [facility] Results Test Description Test Time Test Comments Results Result Co mments Source CULTURE, URINE 2023-03-02 14:54:07 SPECIMEN NUMBER: [id number] CULTURE, URINE SPECIMEN NUMBER: [id number] SPECIMEN COMMENT: URINE SOURCE: URINE REPORT STATUS: FINAL ISOLATE NUMBER 1: ORGANISM: 03/02/2023 10-50,000 CFU/ML STAPHYLOCOCCUS AUREUS IDENTIFICATION: STAPHYLOCOCCUS AUREUS STAPH. AUREUS AMOXI CILLIN/CA SENSITIVE <=4/2CEFAZOLIN SENSITIVE <=4NITROFURANTOIN SENSITIVE <=32OXACILLIN SENSITIVE 1RIFAMPIN SENSITIVE <=1TETRACYCLINE SENSITIVE <=1TRIMETH/SULFA SENSITIVE *1 Note 1: <=0.5/9.5VANCOMYCIN SENSITIVE 2 NOTE: NUMBERS DISPLAYED REPRESENT MINIMUM INHIBITORY CONCENTRATION (ALEXA) WHICH IS EXPRESSED IN MCG/ML. [facility] has important pathology staff changes effective 01/14/2023. New pathology staff will provide uninterrupted, excellent patient care and clinical consultation. See URL: [email or web address] UNLESS OTHERWISE INDICATED, ALL TESTING PERFORMED AT [facility] [address] [place] [address] BRASS INSTRUMENT REPAIR TECHNICIAN: LISBET PERSAUD M.D. CLIA NUMBER [id number] [place] [id number] CULTURE, [id number] 11:51:43SPECIMEN NUMBER: [id number] CULTURE, URINE SPECIMEN NUMBER: [id number] SPECIMEN COMMENT: URINE SOURCE: URINE REPORT STATUS: FINAL ISOLATE NUMBER 1: ORGANISM: 06/23/2022 >100,000 CFU/ML GRAM NEGATIVE BACILLI IDENTIFICATION: 06/24/2022 ESCHERICHIA COLI E. COLI AMOXICILLIN/CA SENSITIVE <=8/4AMPICILLIN SENSITIVE <=8CEFAZOLIN SENSITIVE <=2CEFTRIAXONE SENSITIVE <=1CIPROFLOXACIN SENSITIVE <=1LEVOFLOXACIN SENSITIVE <=2NITROFURANTOIN SENSITIVE <=32PIP/TAZOBAC SENSITIVE <=16TETRACYCLINE SENSITIVE <=4TOBRAMYCIN SENSITIVE <=4TRIMETH/SULFA SENSITIVE <=2/38NOTE: NUMBERS DISPLAYED REPRESENT MINIMUM INHIBITORY CONCENTRATION (ALEXA) WHICH IS EXPRESSED IN MCG/ML.SARS-CoV-2 (COVID-19), RT-PCR/[id number] 16:30:16* Test Item Value Reference Range Interpretation Comments SARS-CoV-2 INTERPRETATION (test code = 06028) POSITIVE SEE NOTE A SARS-CoV-2 RNA DETECTEDPositive results are indicative of the presence of SARS-CoV-2 RNA;clinical correlation with patient history and other diagnosticinformation is necessary to determine patient infection status.Positive results do not rule out bacterial infection or co-infectionwith other viruses. Positive and negative predictive values oftesting are highly dependent on prevalence. SOURCE (test code = 03062) NASOPHARYNGEAL Note: Methodolog y is Jessica Michael Real-Time RT-PCR. The expected result or reference range is NEGATIVE (Not Detected). For more information regarding COVID-19 testing to include clinicalinformation, methodology detail, intended use, FDA authorization andrecommended fact sheets for patients or healthcare providers, see [employer]Test Announcement: SARS-CoV-2 (COVID-19) by NAAT at URL below (note,fact sheets are provided by method given in report:[email or web address]/ Alternatively, see downloadable PDF fact sheet at:[email or web address] UNLESS OTHERWISE INDICATED, ALL TESTING PERFORMED [facility] [address] [place] [id number] [employer] INSTRUMENT REPAIR TECHNICIAN: ELLE GERARDO M.D. [place] NUMBER [id number] [facility] [place] [id number]
--- NOTE | 2023-11-22 20:20 | ER ---
Nurse's Notes [facility] Name: Vira Silva Age: 28 yrs Sex: Female : 1995 Arrival Date: 11/22/2023 Time: 19:07 Bed DX4 Private MD: None, None Diagnosis: Acute upper respiratory infection, unspecified Presentation: 11/22 19:19 Chief complaint: Patient states: Cough, congestion and headache onset 2 days ago. Pt cm10 states that her child is sick and was diagnosed with a viral infection. Coronavirus screen: Vaccine status: Patient reports receiving the 2nd dose of the covid vaccine. Client denies travel out of the [place] in the last 14 days. Ebola Screen: Patient denies travel to an Ebola-affected area in the 21 days before illness onset. No symptoms or risks identified at this time. Initial Sepsis Screen: Does the patient meet any 2 criteria? No. Patient's initial sepsis screen is negative. Does the patient have a suspected source of infection? No. Patient's initial sepsis screen is negative. Risk Assessment: Do you want to hurt yourself or someone else? Patient reports no desire to harm self or others. Onset of symptoms was November 22, 2023. 19:19 Method Of Arrival: Ambulatory cm10 19:19 Acuity: SERGIO 4 cm10 Triage Assessment: 19:20 Headache History: The patient has had previous headaches. General: Appears in no cm10 apparent distress. comfortable, Behavior is calm, cooperative. Pain: Complains of pain in head Pain currently is 8 out of 10 on a pain scale. Pain began 2-3 days ago. Also complains of no other associated symptoms. EENT: No deficits noted. Reports nasal congestion. Neuro: No deficits noted. Level of Consciousness is awake, alert, obeys commands, Oriented to person, place, time, situation, Reports headache. Cardiovascular: No deficits noted. Patient's skin is warm and dry. Respiratory: No deficits noted. Airway is patent Respiratory effort is even, unlabored, Respiratory pattern is regular, symmetrical. GI: No deficits noted. No signs and/or symptoms were reported involving the gastrointestinal system. : No deficits noted. No signs and/or symptoms were reported regarding the genitourinary system. Derm: No deficits noted. No signs and/or symptoms reported regarding the dermatologic system. Musculoskeletal: No deficits noted. No signs and/or symptoms reported regarding the musculoskeletal system. Range of motion: intact in all extremities. Historical: - Allergies: 19:18 No Known Allergies; cm10 - PMHx: 19:18 GALLSTONES; cm10 - PSHx: 19:18 Cholecystectomy; cm10 - Immunization history:: Adult Immunizations up to date, Client reports receiving the 2nd dose of the Covid vaccine. - Social history:: Smoking status: Reported history of juuling and/or vaping. Screenin:26 [facility] ED Fall Risk Assessment (Adult) History of falling in the last 3 months, cm10 including since admission No falls in past 3 months (0 pts). Abuse screen: Denies threats or abuse. Denies injuries from another. Nutritional screening: No deficits noted. Tuberculosis screening: No symptoms or risk factors identified. Assessment: 20:25 General: see triage assessment. cm10 Vital Signs: 19:19 BP 127 / 79; Pulse 107; Resp 18 S; Temp 97.7; Pulse Ox 100% on R/A; Weight 104.33 kg; cm10 Height 5 ft. 1 in. ; Pain 8/10; 19:19 Body Mass Index 43.46 (104.33 kg, 154.94 cm) cm10 19:19 Pain Scale: Adult cm10 Lina Coma Score: 20:02 Eye Response: spontaneous(4). Motor Response: obeys commands(6). Verbal Response: kb oriented(5). Total: 15. ED Course: 19:12 Patient arrived in ED. es 19:12 None, None is Private Physician. es 19:15 [facility]C [facility] kb 19:15 Sanjay Corrigan MD is Attending Physician. kb 19:20 Triage completed. cm10 19:20 Arm band placed on Patient placed in waiting room. cm10 20:26 Patient has correct armband on for positive identification. cm10 20:26 No provider procedures requiring assistance completed. Patient did not have IV access cm10 during this emergency room visit. Administered Medications: No medications were administered Medication: 20:26 VIS not applicable for this client. cm10 Outcome: 20:19 Discharge ordered by . kb 20:26 Discharged to home ambulatory, cm10 20:26 Condition: stable 20:26 Discharge instructions given to patient, Instructed on discharge instructions, follow up and referral plans. medication usage, Demonstrated understanding of instructions, follow-up care, medications, Prescriptions given X 20:26 Patient left the ED. cm10 Signatures: Malu Hansen FNP-C FNP-Shima Wallis Clarissa, RN RN cm10
--- NOTE | 2023-11-22 20:20 | EDPHYS ---
Physician Documentation [facility] Name: Vira Silva Age: 28 yrs Sex: Female : 1995 Arrival Date: 11/22/2023 Time: 19:07 Bed DX4 Private MD: None, None ED Physician Sanjay Corrigan HPI: 11/22 20:02 This 28 yrs old Female presents to ER via Ambulatory with complaints of kb Headache, Breathing Difficulty, Cough. 20:02 Pt is a 28 year old female who presents with cough, congestion and headache for 2 days. kb Denies fever, chills, bodyaches. Historical: - Allergies: 19:18 No Known Allergies; cm10 - PMHx: 19:18 GALLSTONES; cm10 - PSHx: 19:18 Cholecystectomy; cm10 - Immunization history:: Adult Immunizations up to date, Client reports receiving the 2nd dose of the Covid vaccine. - Social history:: Smoking status: Reported history of juuling and/or vaping. ROS: 20:01 Constitutional: Negative for fever, chills, and weight loss, kb 20:01 ENT: Positive for sinus congestion, 20:01 Respiratory: Positive for cough, 20:01 Neuro: Positive for headache, 20:01 All other systems are negative, Exam: 20:01 Constitutional: This is a well developed, well nourished patient who is awake, alert, kb and in no acute distress. Head/Face: Normocephalic, atraumatic. ENT: Moist Mucous membranes Cardiovascular: Regular rate Respiratory: Respirations even and unlabored. No increased work of breathing. Talking in full sentences Skin: Warm, dry with normal turgor. Normal color. MS/ Extremity: Pulses equal, no cyanosis. Neurovascular intact. Full, normal range of motion. Neuro: Awake and alert, GCS 15, oriented to person, place, time, and situation. Moves all extremities. Normal gait. Vital Signs: 19:19 BP 127 / 79; Pulse 107; Resp 18 S; Temp 97.7; Pulse Ox 100% on R/A; Weight 104.33 kg; cm10 Height 5 ft. 1 in. ; Pain 8/10; 19:19 Body Mass Index 43.46 (104.33 kg, 154.94 cm) cm10 19:19 Pain Scale: Adult cm10 Marcus Coma Score: 20:02 Eye Response: spontaneous(4). Motor Response: obeys commands(6). Verbal Response: kb oriented(5). Total: 15. MDM: 19:15 Patient medically screened. kb 20:02 Differential diagnosis: flu, covid, uri. Data reviewed: vital signs, nurses notes. kb 20:17 Test considered but Not performed: X-ray: chest x-ray considered, but lungs clear kb bilaterally, resp even and unlabored, oxygen saturation 100% on room air. Counseling: I had a detailed discussion with the patient and/or guardian regarding the historical points, exam findings, and any diagnostic results supporting the discharge/admit diagnosis, lab results, the need for outpatient follow up, a family practitioner, to return to the emergency department if symptoms worsen or persist or if there are any questions or concerns that arise at home. 11/22 19:30 Order name: Flu; Complete Time: 20:10 kb 11/22 19:30 Order name: COVID-19 SARS RT PCR; Complete Time: 20:17 kb Administered Medications: No medications were administered Disposition Summary: 11/22/23 20:19 Discharge Ordered Notes: Location: Home kb Condition: Stable kb Diagnosis - Acute upper respiratory infection, unspecified kb Followup: kb - With: Emergency Department - When: As needed - Reason: Worsening of condition Followup: kb - With: Private Physician - When: 2 - 3 days - Reason: Recheck today's complaints, Continuance of care, Re-evaluation by your physician Discharge Instructions: - Discharge Summary Sheet kb - Upper Respiratory Infection, Adult, [id number] kb - Viral Respiratory Infection, [id number] kb Forms: - Medication Reconciliation Form kb - Thank You Letter kb - Antibiotic Education kb - Prescription Opioid Use kb - Patient Portal Instructions kb - Leadership Thank You Letter kb Prescriptions: - Tessalon Perles 100 mg Oral Capsule - take 1 capsule ORAL route every 8 hours As needed; 15 capsule; Refills: 0, kb Product Selection Permitted Signatures: Dispatcher [employer] Malu Jones, FERNANDA-C Shu Deluca, RN RN cm10
[2023-11-22 20:46] VITALS: BP 127/79; TEMP 97.7; O2SAT 100
== END ==
LOC: ER 19:07
DX: J06.9 Acute upper respiratory infection, unspecified (principal); Z11.52 Encounter for screening for COVID-19
CPT/HCPCS: 87635; 87804; 99283

== ENCOUNTER → 2023-11-26 | Emergency (ER) | payer OTHER ==
[~2023-11-26] MED LIST: ALBUTEROL 2.5 MG/3 ML NEB SOL ONE; DIPHENHYDRAMINE 50 MG/ML VIAL ONE; IPRATROPIUM BROM 0.5MG/2.5ML ONE; KETOROLAC 30 MG/ML INJ ONE; METOCLOPRAMIDE 10 MG/2mL INJ ONE; NA CHLORIDE 0.9% 1,000 ML ONE; dexAMETHasone 10 MG/ML VIAL ONE
--- OUTSIDE RECORDS SUMMARY | 2023-11-26 00:17 | XMS REPORT | Continuity of Care Document ---
Author Name Unknown Address [address] [facility] [address] [place] [address] [facility] thconnect Address [address] [facility]. 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 Role Phone LIBERTAD BACON Primary Care Physician Unav ailable JAN YATES Attending Clinician Unavailable KO KELLEY Attending Clinician Unavailable Conor DURAN, Jan Sears Attending Clinician [phone] Jada Caballero LMSW Attending Clinician Unava ilable Jeanette Maher PA-C Attending Clinician [phone] LIBERTAD BACON Attending Clinician Unavail able Doctor Unassigned, [place] Attending Clinician U navailable Uziel Leonard Attending Clinician + [phone] UZIEL DICKEY Attending Clinician Unavailab gladys Camacho RN, Supriya Mayes Attending Clinician Unavail able Eliezer DURAN, Drkae Carmona Attending Clinician + [phone] Marshall DURAN, Maria Isabel Main Attending Clinician [phone] Agustin Gillette MD Attending Clinician [phone] Autumn DURAN, Archie Sanchez Attending Clinician [phone] Albaro Khan DO Attending Clinician [phone] Arleen Libertad VILLAGRAN Attending Clinician + Ultrasound, [facility] Attending Clinician Wicho Sandoval MD, Nolberto R Attending Clinician [phone] Lab, [facility] Attending Clinician Unavailable 3, [facility] Room Attending Clinician Wicho ahn 1, [facility] Attending Clinician Wicho Krause MD, Ranjith Main Attending Clinician [phone] MARIA ISABEL LAUREANO Admitting Clinician Unavailable DRAKE MARTINS Admitting Clinician Maria Isabel Morales MD Admitting Clinician [phone] Payers Payer Name Policy Type Policy Number Effective Date Expirati on Date Source [facility] MEDICAID [id number] 2016 00:00:00 Problems Condition Name Condition Details Condition Category Status Onset Date Resolution Date Last Treatment Date Treating Clinician Comments Source Morbid obesity with body mass index of 40.0-49.9 Morbid obesity with body mass index of 40.0-49.9 Disease Active 15 00:00: 00 [facility] Rubella non-immune status, antepartum Rubella non-immune status, antepartum Disease Active 2019-11 00:00: 00 Overview: Formattin g of this note might be different from the original. Address [facility] Maternal varicella, non-immune Maternal varicella, non-immune Disease Active 2019-11 00:00: 00 Overview: Formattin g of this note might be different from the original. Address pp [facility] Multiparit y Multiparit y Disease Active 2019-11 00:00: 00 [facility] Allergies, Adverse Reactions, Alerts Allergy Name Allergy Type Status Severity Reaction(s) Onset Date Inactive Date Treating Clinician Comments Source NO KNOWN ALLERGIE S Drug Class Active [facility] Social History Social Habit Start Date Stop Date Quantity Comments Source Alcohol intake 2021-09-20 00:00:00 2021-09-20 00:00:00 Current non-drinker of alcohol (finding) [facility] Tobacco use and exposure 2015-05-16 00:00:00 2015-05-16 00:00:00 Never used [facility] Sex Assigned At 1995 00:00:00 1995 00:00:00 [facility] Smoking Status Start Date Stop Date Source Never smoker [facility] Medications Ordered Medication Name Filled Medication Name Start Date Stop Date Current Medication? Ordering Clinician Indication Dosage Frequency Signature (SIG) Comments Components Source No known medications 2020-11 09:05: 36 No [facility] Vital Signs Vital Name Observation Time Observation Value Comments S our Systolic blood pressure 2021-09-20 13:32:00 98 mm[Hg] [facility] Diastolic blood pressure 2021-09-20 13:32:00 67 mm[Hg] [facility] Heart rate 2021-09-20 13:32:00 92 /min [facility] Respiratory rate 2021-09-20 13:32:00 18 /min [facility] Body height 2021-09-20 13:32:00 154.9 cm [facility] Body weight 2021-09-20 13:32:00 102.655 kg [facility] BMI 2021-09-20 13:32:00 42.76 kg/m2 [facility] Encounters Start Date/Time End Date/Time Encounter Type Admission Type Attending Clinicians Care Facility Care Department Encounter ID Source 2021-09-16 02:08:21 [facility] [id number] [facility] 2021-09-16 00:32:22 Inpatient P [facility]PER[facility] [id number] [facility] 2021-09-15 20:36:11 Outpatient [facility] [id number] [facility] 2023-11-24 10:20:28 2023-11-24 10:20:28 Outpatient [facility] [id number] Preet Solitario 2023-11-21 10:35:46 2023-11-21 10:35:46 Outpatient [facility] [id number] Preet Solitario 2023-04-28 15:55:39 2023-04-28 15:55:39 Outpatient [facility] [id number] Preet Solitario 2023-03-14 09:22:37 2023-03-14 09:22:37 Outpatient S[facility] [id number] Preet Solitario 2023-02-27 13:26:09 2023-02-27 13:26:09 Outpatient [facility] [id number] Preet Solitario 2022-10-27 10:54:09 2022-10-27 10:54:09 Outpatient [facility] [id number] Preet Solitario 2022-03-21 09:30:00 2022-03-21 09:30:00 Outpatient JAN MCLEAN [facility] [id number] [facility] 2022-03-21 09:30:00 2022-03-21 09:30:00 Outpatient JAN MCLEAN [facility] [id number] [facility] 2021-12-11 10:45:00 2021-12-11 10:45:00 Outpatient KO ESPINO [facility] [id number] [facility] 2021-09-20 08:30:00 2021-09-20 09:07:04 Outpatient JAN MCLEAN [facility] [id number] [facility] 2021-09-20 08:23:27 2021-09-20 09:07:04 Office Visit Jan Yates [facility] ..840.114 350.1.13.10 4.2.7.2.686 [id number] [facility] 2021-09-20 08:30:00 2021-09-20 08:30:00 Outpatient JAN MCLEAN [facility] [id number] [facility] 2021-08-30 00:00:00 2021-08-30 00:00:00 Case Management Jada Caballero 1..840.114 350.1.13.10 4.2.7.2.686 [id number] [facility] 2021-08-01 00:00:00 2021-08-01 00:00:00 Telephone Jeanette Maher [facility] Building 1.2840.114 350.1.13.10 4.2.7.2.686 [id number] [facility] 2021-07-26 12:45:00 2021-07-26 12:45:00 Outpatient R JAN YATES [facility] [id number] [facility] 2021-07-25 00:00:00 2021-07-25 00:00:00 Telephone Jan Yates [facility] Building 1.2840.114 350.1.13.10 4.2.7.2.686 [id number] [facility] 2021-07-19 13:30:16 2021-07-19 14:08:41 Office Visit Jan Yates [facility] 1.0.114 350.1.13.10 4.2.7.2.686 [id number] [facility] 2021-07-19 13:30:00 2021-07-19 13:30:00 Outpatient R JAN YATES [facility] [id number] [facility] 2021-05-29 15:15:00 2021-05-29 15:15:00 Outpatient R LIBERTAD BACON [facility] [id number] [facility] 2021-05-15 00:00:00 2021-05-15 00:00:00 Orders Only Doctor Unassigned, [place] [facility] 1.20.114 350.1.13.10 4.2.7.2.686 [id number] 2021-05-15 00:00:00 2021-05-15 00:00:00 Orders Only Doctor Unassigned, [place] [facility] 1.2840.114 350.1.13.10 4.2.7.2.686 [id number] [facility] 2021-05-08 15:10:42 2021-05-08 15:39:26 Routine Visit Uziel Dickey [facility] [employer] INSOLES [facility] 1.2.840.114 350.1.13.10 4.2.7.2.686 [id number] 2021-05-08 15:10:42 2021-05-08 15:39:26 Routine Visit Uziel Dickey [facility] CHANNEL LIP [employer] INSOLES [facility] 1.2.840.114 350.1.13.10 4.2.7.2.686 [id number] [facility] 2021-05-08 15:00:00 2021-05-08 15:00:00 Outpatient R UZIEL DICKEY [facility] [id number] [facility] 2021-05-06 00:00:00 2021-05-06 00:00:00 Transition of Care Ishmaria alejandra Supriyaklaus Singh 1.2.840.114 350.1.13.10 4.2.7.2.686 [id number] 2021-05-06 00:00:00 2021-05-06 00:00:00 Transition of Care Trey Camachomackenzie Singh 1.2.840.114 350.1.13.10 4.2.7.2.686 [id number] [facility] 2021-04-25 20:06:00 2021-05-03 10:30:00 [facility] 1.2.840.114 350.1.13.10 4.2.7.2.686 [id number] 2021-04-25 20:06:00 2021-05-03 10:30:00 [facility] 1.2.840.114 350.1.13.10 4.2.7.2.686 [id number] [facility] 2021-04-05 15:00:00 2021-04-08 13:00:00 Hospital Encounter Agustin Gillette 1.2.840.1 [id number] 3.104.2.7 .3.862889 .8 [id number] [facility] 2021-04-05 21:19:00 2021-04-06 13:54:00 Anesthesia Event DilciaKatie mcclainh Albaro Baird 1.2.840.1 [id number] 3.104.2.7 .3.193586 .8 [id number] [facility] 2021-04-05 14:15:00 2021-04-05 14:15:00 Outpatient R LIBERTAD BACON [facility] [id number] [facility] 2021-04-05 00:00:00 2021-04-05 00:00:00 Travel 1.2.840.1 [id number] 3.104.2.7 .3.084383 .8 1.2.840.114 350.1.13.10 4.2.7.3.698 [id number] [facility] 2021-03-29 12:56:20 2021-03-29 13:26:57 Routine Visit Libertad Bacon [facility] [employer]IP [employer] INSOLES [facility] 1.2.840.114 350.1.13.10 4.2.7.2.686 [id number] 2021-03-29 12:56:20 2021-03-29 13:26:57 Routine Visit Libertad Bacon 1.2.840.1 [id number] 3.104.2.7 .3.704021 .8 [id number] [facility] 2021-03-29 13:00:00 2021-03-29 13:00:00 Outpatient R LIBERTAD BACON [facility] [id number] [facility] 2021-03-29 00:00:00 2021-03-29 00:00:00 Travel 1.2.840.1 [id number] 3.104.2.7 .3.647527 .8 1.2.840.114 350.1.13.10 4.2.7.3.698 [id number] [facility] 2021-03-27 00:00:00 2021-03-27 00:00:00 Travel 1.2.840.1 [id number] 3.104.2.7 .3.240800 .8 1.2.840.114 350.1.13.10 4.2.7.3.698 [id number] [facility] 2021-03-22 15:00:00 2021-03-22 15:00:00 Outpatient R LIBERTAD BACON [facility] [id number] [facility] 2021-03-15 13:06:32 2021-03-15 13:45:27 Routine Visit Libertad Bacon [facility] CH[employer] INSOLES [facility] 1.2.840.114 350.1.13.10 4.2.7.2.686 [id number] 2021-03-15 13:06:32 2021-03-15 13:45:27 Routine Visit Libertad Bacon 1.2.840.1 [id number] 3.104.2.7 .3.566367 .8 [id number] [facility] 2021-03-15 13:00:00 2021-03-15 13:00:00 Outpatient R LIBERTAD BACON [facility] [id number] [facility] 2021-03-15 00:00:00 2021-03-15 00:00:00 Telephone Libertad Bacon [facility] CH[employer] [facility] 1.2.840.114 350.1.13.10 4.2.7.2.686 [id number] 2021-03-15 00:00:00 2021-03-15 00:00:00 Telephone Libertad Bacon 1.2.840.1 31598.1.1 3.104.2.7 .3.053400 .8 [id number] [facility] 2021-03-15 00:00:00 2021-03-15 00:00:00 Travel 1.2.840.1 35141.1.1 3.104.2.7 .3.868978 .8 1.2.840.114 350.1.13.10 4.2.7.3.698 084.8 [id number] [facility] 2021-03-08 12:47:55 2021-03-08 13:16:26 Routine Visit Libertad Bacon 1.2.840.1 65946.1.1 3.104.2.7 .3.436871 .8 [id number] [facility] 2021-03-08 12:45:00 2021-03-08 12:45:00 Outpatient R LIBERTAD BACON [facility] [id number] [facility] 2021-03-08 00:00:00 2021-03-08 00:00:00 Travel 1.2.840.1 29587.1.1 3.104.2.7 .3.854035 .8 1.2.840.114 350.1.13.10 4.2.7.3.698 084.8 [id number] [facility] 2021-02-15 12:48:13 2021-02-15 13:26:32 Routine Visit Libertad Bacon 1.2.840.1 25723.1.1 3.104.2.7 .3.818167 .8 [id number] [facility] 2021-02-15 12:45:00 2021-02-15 12:45:00 Outpatient R LIBERTAD BACON [facility] [id number] [facility] 2021-02-15 00:00:00 2021-02-15 00:00:00 Travel 1.2.840.1 55940.1.1 3.104.2.7 .3.167121 .8 1.2.840.114 350.1.13.10 4.2.7.3.698 084.8 [id number] [facility] 2021-02-08 13:00:00 2021-02-08 13:00:00 Outpatient R MARTINAKVNGLIBERTAD [facility] [id number] [facility] 2021-01-25 09:30:30 2021-01-25 10:29:38 Routine Visit Libertad Bacon [employer] [facility] & [facility] 1..840.114 350.1.13.10 4.2.7.2.686 [id number] [facility] 2021-01-25 09:30:00 2021-01-25 09:30:00 Outpatient R LIBERTAD BACON [facility] [id number] [facility] 2021-01-11 10:53:27 2021-01-11 11:36:00 Routine Visit Libertad Bacon [facility] CH[facility] [employer]OLES [facility] & [facility] 1.2.840.114 350.1.13.10 4.2.7.2.686 [id number] [facility] 2021-01-11 11:00:00 2021-01-11 11:00:00 Outpatient R LIBERTAD BACON [facility] [id number] [facility] 2020-12-27 00:00:00 2020-12-27 00:00:00 Telephone Libertad Bacon [facility] CH[employer]OL[employer] [facility] 1.2.840.114 350.1.13.10 4.2.7.2.686 [id number] [facility] 2020-12-21 00:00:00 2020-12-21 00:00:00 Orders Only Doctor Unassigned, [place] [facility] 1.2840.114 350.1.13.10 4.2.7.2.686 [id number] [facility] 2020-12-14 09:47:51 2020-12-14 10:56:01 Routine Visit Libertad Bacon [facility] CH[employer] LIP [employer] INSOLES [facility] 1.2840.114 350.1.13.10 4.2.7.2.686 [id number] [facility] 2020-12-14 09:45:00 2020-12-14 09:45:00 Outpatient R LIBERTAD BACON [facility] [id number] [facility] 2020-11-19 09:56:50 2020-11-19 11:27:45 Hearing Stenographer Visit Ultrasound, Libertad Arguello George R [facility] CH[facility] LIP [employer] INSOLES [facility] & [facility] 1.284.114 350.1.13.10 4.2.7.2.686 [id number] [facility] 2020-11-19 09:08:12 2020-11-19 09:40:42 Routine Visit Libertad Bacon [facility] CH[employer] L[employer] INSOLES [facility] 1.20.114 350.1.13.10 4.2.7.2.686 [id number] [facility] 2020-11-19 09:15:00 2020-11-19 09:15:00 Outpatient LIBERTAD LAGUNA [facility] [id number] [facility] 2020-11-19 00:00:00 2020-11-19 00:00:00 Orders Only Doctor Unassigned, [place] [facility] 1.20.114 350.1.13.10 4.2.7.2.686 [id number] [facility] 2020-11-19 00:00:00 2020-11-19 00:00:00 Abstract Libertad Bacon [facility] [employer] INSOLES [facility] 1.840.114 350.1.13.10 4.2.7.2.686 [id number] [facility] 2020-11-13 08:15:00 2020-11-13 08:15:00 Outpatient R LIBERTAD BACON [facility] [id number] [facility] 2020-11-06 13:15:00 2020-11-06 13:15:00 Outpatient R LIBERTAD BACON [facility] [id number] [facility] 2020-11-06 10:45:00 2020-11-06 10:45:00 Outpatient R MARTINAKVNG LIBERTAD [facility] [id number] [facility] 2020-10-10 09:45:00 2020-10-10 09:45:00 Outpatient R LIBERTAD BACON [facility] [id number] [facility] 2020-10-09 10:35:23 2020-10-09 10:50:23 Routine Visit Libertad Bacon [facility] [employer] INSOLES [facility] 1.84114 350.1.13.10 4.2.7.2.686 [id number] [facility] 2020-10-09 10:45:00 2020-10-09 10:45:00 Outpatient R LIBERTAD BACON [facility] [id number] [facility] 2020-09-27 00:00:00 2020-09-27 00:00:00 Orders Only Doctor Unassigned, [place] [facility] 1.840.114 350.1.13.10 4.2.7.2.686 [id number] [facility] 2020-09-26 00:00:00 2020-09-26 00:00:00 Abstract Libertad Bacon [facility] [employer]OLES [facility] 1.2.840.114 350.1.13.10 4.2.7.2.686 [id number] [facility] 2020-09-26 00:00:00 2020-09-26 00:00:00 Abstract Libertad Bacon [facility] CH[facility] [employer]OLES [facility] 1.2.840.114 350.1.13.10 4.2.7.2.686 [id number] [facility] 2020-09-24 14:44:26 2020-09-24 14:55:44 Hearing Stenographer Visit Lab, [facility] Maria Isabel Laureano [facility] 1.2840.114 350.1.13.10 4.2.7.2.686 [id number] [facility] 2020-09-24 13:17:42 2020-09-24 14:32:26 Hearing Stenographer Visit 3, [facility] Room Maria Isabel Laureano [facility] 1.2840.114 350.1.13.10 4.2.7.2.686 [id number] [facility] 2020-09-24 13:00:00 2020-09-24 13:00:00 Outpatient P [facility] [id number] [facility] 2020-09-17 10:37:50 2020-09-17 11:36:49 Hearing Stenographer Visit 1, [facility] Room Ranjith Krause [facility] 1.2.114 350.1.13.10 4.2.7.2.686 [id number] [facility] 2020-09-17 10:30:00 2020-09-17 10:30:00 Outpatient P [facility] [id number] [facility] 2020-09-17 00:00:00 2020-09-17 00:00:00 Telephone Libertad Bacon [facility] [employer] [facility] 1.2.840.114 350.1.13.10 4.2.7.2.686 [id number] [facility] 2020-09-17 00:00:00 2020-09-17 00:00:00 Abstract Libertad Bacon [facility] CH[employer] [facility] 1.2.840.114 350.1.13.10 4.2.7.2.686 [id number] [facility] 2020-09-13 13:26:47 2020-09-14 09:39:46 Initial Visit Libertad Bacon [facility] [employer] [facility] 1.2.840.114 350.1.13.10 4.2.7.2.686 [id number] [facility] 2020-09-14 00:00:00 2020-09-14 00:00:00 Telephone Libertad Bacon [facility] [employer] [facility] 1.2.840.114 350.1.13.10 4.2.7.2.686 [id number] [facility] 2020-09-14 00:00:00 2020-09-14 00:00:00 Telephone Libertad Bacon [facility] [employer] [facility] 1.2.840.114 350.1.13.10 4.2.7.2.686 [id number] [facility] 2020-09-14 00:00:00 2020-09-14 00:00:00 Telephone Libertad Bacon [facility] [employer] [facility] 1.2.840.114 350.1.13.10 4.2.7.2.686 [id number] [facility] 2020-09-13 13:30:00 2020-09-13 13:30:00 Outpatient R LIBERTAD BACON [facility] [id number] [facility] 2020-09-13 00:00:00 2020-09-13 00:00:00 Orders Only Doctor Unassigned, [place] [facility] 1.2.840.114 350.1.13.10 4.2.7.2.686 [id number] [facility] Results Test Description Test Time Test Comments Results Result Co mments Source CULTURE, URINE 2023-03-02 14:54:07 SPECIMEN NUMBER: [id number] CULTURE, URINE SPECIMEN NUMBER: [id number] SPECIMEN COMMENT: URINE SOURCE: URINE REPORT STATUS: FINAL ISOLATE NUMBER 1: ORGANISM: 03/02/2023 10-50,000 CFU/ML STAPHYLOCOCCUS AUREUS IDENTIFICATION: STAPHYLOCOCCUS AUREUS STAPH. AUREUS AMOXI CILLIN/CA SENSITIVE <=4/2CEFAZOLIN SENSITIVE <=4NITROFURANTOIN SENSITIVE <=32OXACILLIN SENSITIVE 1RIFAMPIN SENSITIVE <=1TETRACYCLINE SENSITIVE <=1TRIMETH/SULFA SENSITIVE *1 Note 1: <=0.5/9.5VANCOMYCIN SENSITIVE 2 NOTE: NUMBERS DISPLAYED REPRESENT MINIMUM INHIBITORY CONCENTRATION (ALEXA) WHICH IS EXPRESSED IN MCG/ML. [facility] has important pathology staff changes effective 01/14/2023. New pathology staff will provide uninterrupted, excellent patient care and clinical consultation. See URL: [email or web address]. UNLESS OTHERWISE INDICATED, ALL TESTING PERFORMED AT [facility] [address] [place] [address] MOTION PICTURE PRINTER: LISBET PERSAUD M.D. CLIA NUMBER [id number] [place]. [id number] CULTURE, [id number] 11:51:43SPECIMEN NUMBER: [id number] CULTURE, URINE SPECIMEN NUMBER: [id number] SPECIMEN COMMENT: URINE SOURCE: URINE REPORT STATUS: FINAL ISOLATE NUMBER 1: ORGANISM: 06/23/2022 >100,000 CFU/ML GRAM NEGATIVE BACILLI IDENTIFICATION: 06/24/2022 ESCHERICHIA COLI E. COLI AMOXICILLIN/CA SENSITIVE <=8/4AMPICILLIN SENSITIVE <=8CEFAZOLIN SENSITIVE <=2CEFTRIAXONE SENSITIVE <=1CIPROFLOXACIN SENSITIVE <=1LEVOFLOXACIN SENSITIVE <=2NITROFURANTOIN SENSITIVE <=32PIP/TAZOBAC SENSITIVE <=16TETRACYCLINE SENSITIVE <=4TOBRAMYCIN SENSITIVE <=4TRIMETH/SULFA SENSITIVE <=2/38NOTE: NUMBERS DISPLAYED REPRESENT MINIMUM INHIBITORY CONCENTRATION (ALEXA) WHICH IS EXPRESSED IN MCG/ML.SARS-CoV-2 (COVID-19), RT-PCR/[id number] 16:30:16* Test Item Value Reference Range Interpretation Comments SARS-CoV-2 INTERPRETATION (test code = 35336) POSITIVE SEE NOTE A SARS-CoV-2 RNA DETECTEDPositive results are indicative of the presence of SARS-CoV-2 RNA;clinical correlation with patient history and other diagnosticinformation is necessary to determine patient infection status.Positive results do not rule out bacterial infection or co-infectionwith other viruses. Positive and negative predictive values oftesting are highly dependent on prevalence. SOURCE (test code = 54356) NASOPHARYNGEAL Note: Methodolog y is Jessica Michael Real-Time RT-PCR. The expected result or reference range is NEGATIVE (Not Detected). For more information regarding COVID-19 testing to include clinicalinformation, methodology detail, intended use, FDA authorization andrecommended fact sheets for patients or healthcare providers, see [facility] Announcement: SARS-CoV-2 (COVID-19) by NAAT at URL below (note,fact sheets are provided by method given in report:[email or web address] Alternatively, see downloadable PDF fact sheet at:[email or web address] OTHERWISE INDICATED, ALL TESTING PERFORMED [facility] [employer] [address] [place] [id number] [employer] PRINTER: ELLE GERARDO M.D. CLIA NUMBER [id number] [place]. [id number]
[2023-11-26 01:12] LABS: Absolute Lymphocytes (CBC) 3.7 K/uL (0.7-4.9); Hematocrit 36.2 % (36.0-45.0); Lymphocytes % 26.2 % (15.3-44.8); MCV 83.4 fL (80-100); MPV 9.2 fL (7.6-11.3); Platelets 264 thou/uL (152-406); RBC Red Blood Cell Count 4.34 M/uL (3.86-4.86)
[2023-11-26 01:24] LABS: Potassium 3.3 mEq/L (3.5-5.1); Troponin High Sensitivity 5.4 pg/mL (<58.9)
--- NOTE | 2023-11-26 03:14 | EDPHYS ---
Physician Documentation [facility] Name: Vira Silva Age: 28 yrs Sex: Female : 1995 Arrival Date: 11/26/2023 Time: 00:12 Bed 6 Private MD: ED Physician Wanda Humphreys HPI: 11/26 00:30 This 28 yrs old Female presents to ER via Ambulatory with complaints of Cough, kb Shortness Of Breath, Headache. 00:30 Patient is a 28-year-old female with a history of migraines who presents for cough that kb started 1 week ago. States she started having a migraine that is similar to previous migraines and feels like something is sitting on her chest 3 days ago. Denies fever or chills. Denies sore throat.. 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 - Social history:: Smoking status: Reported history of juuling and/or vaping. Patient/guardian denies using alcohol, street drugs. ROS: 00:30 Constitutional: Negative for fever, chills, and weight loss, kb 00:30 Cardiovascular: Positive for chest pain, 00:30 Respiratory: Positive for cough, shortness of breath, 00:30 Neuro: Positive for headache, 00:30 All other systems are negative, Exam: 00:30 Constitutional: This is a well developed, well nourished patient who is awake, alert, kb and in no acute distress. Head/Face: Normocephalic, atraumatic. ENT: Moist Mucous membranes Cardiovascular: Regular rate Respiratory: Respirations even and unlabored. No increased work of breathing. Talking in full sentences Abdomen/GI: Soft, non-tender. No distention Skin: Warm, dry with normal turgor. Normal color. MS/ Extremity: Pulses equal, no cyanosis. Neurovascular intact. Full, normal range of motion. Neuro: Awake and alert, GCS 15, oriented to person, place, time, and situation. Moves all extremities. Normal gait. Vital Signs: 00:28 BP 119 / 81; Pulse 118; Resp 19; Temp 98.5; Pulse Ox 100% ; Weight 107.5 kg; Height 5 jj7 ft. 1 in. ; Pain 8/10; 01:43 BP 112 / 90; Pulse 100; Resp 20; Pulse Ox 95% on R/A; jb4 03:00 BP 118 / 73; Pulse 86; Resp 16; Pulse Ox 97% on R/A; jb4 00:28 Body Mass Index 44.78 (107.50 kg, 154.94 cm) jj7 00:28 Pain Scale: Adult jj7 MDM: 00:31 Differential Diagnosis: Bronchitis Influenza Upper Respiratory Infection Pneumonia kb Other abnormal ekg, ME, COVID. Data reviewed: vital signs, nurses notes. 00:34 Patient medically screened. gb1 11/26 00:33 Order name: Basic Metabolic Panel; Complete Time: 01:36 kb 11/26 00:33 Order name: CBC with Diff; Complete Time: 01:36 kb 11/26 00:33 Order name: Troponin HS; Complete Time: 01:36 kb 11/26 00:33 Order name: Flu; Complete Time: 03:07 kb 11/26 00:33 Order name: SARS-COV-2 RT PCR; Complete Time: :36 kb 11/26 00:33 Order name: XRAY Chest (1 view) kb 11/26 00:33 Order name: EKG; Complete Time: 00:34 kb 11/26 00:33 Order name: Cardiac monitoring; Complete Time: 00:43 kb 11/26 00:33 Order name: EKG - Nurse/Tech; Complete Time: 01:13 kb 11/26 00:33 Order name: IV Saline Lock; Complete Time: 01:13 kb 11/26 00:33 Order name: Labs collected and sent; Complete Time: 00:43 kb 11/26 00:33 Order name: O2 Per Protocol; Complete Time: 00:43 kb 11/26 00:33 Order name: O2 Sat Monitoring; Complete Time: 00:43 kb Administered Medications: 01:12 Drug: Ketorolac IVP 15 mg IVP once Route: IVP; Site: right antecubital; jb4 01:12 Drug: metoCLOPramide IVP 10 mg IVP once; over 1 to 2 minutes Route: IVP; Site: right jb4 antecubital; 01:12 Drug: diphenhydrAMINE IVP 12.5 mg IVP once Route: IVP; Site: right antecubital; jb4 01:12 Drug: NS 0.9% IV 1000 ml IV at 1000 ml once Route: IV; Rate: 1000 ml; Site: right jb4 antecubital; 01:12 Drug: Decadron - Dexamethasone IVP 10 mg IVP once Route: IVP; Site: right antecubital; jb4 01:12 Drug: Albuterol Inhalation 2.5 mg Inhalation once Route: Inhalation; jb4 01:12 Drug: Ipratropium Inhalation Aerosol 0.5 mg Inhalation once Route: Inhalation; jb4 Disposition: 03:15 Co-signature as Attending Physician, Wanda Humphreys MD. gb1 Disposition Summary: 11/26/23 03:14 Discharge Ordered Notes: Location: Home gb1 Problem: new gb1 Symptoms: are unchanged gb1 Condition: Stable gb1 Diagnosis - Acute bronchitis, unspecified gb1 Followup: gb1 - With: Private Physician - When: - Reason: Re-evaluation by your physician Discharge Instructions: - Discharge Summary Sheet gb1 - Acute Bronchitis, Adult gb1 Forms: - Medication Reconciliation Form gb1 - Thank You Letter gb1 - Antibiotic Education gb1 - Prescription Opioid Use gb1 - Patient Portal Instructions gb1 - Leadership Thank You Letter gb1 Signatures: Dispatcher [employer] Malu Jones, FERNANDA-C SUPPORT ANALYST-Kevyn Palma RN RN jb4 Nemo Schuler RN RN jj7 Wanda Humphreys MD MD gb1 Corrections: (The following items were deleted from the chart) 00:33 00:30 Respiratory: Positive for cough, kb kb
--- NOTE | 2023-11-26 03:14 | ER ---
Nurse's Notes [facility] Name: Vira Silva Age: 28 yrs Sex: Female : 1995 Arrival Date: 11/26/2023 Time: 00:12 Bed 6 Private MD: Diagnosis: Acute bronchitis, unspecified Presentation: 11/26 00:28 Chief complaint: Patient states: COUGH X1 WK AND CHEST TIGHTNESS. NOT GETTING BETTER. jj7 Coronavirus screen: cough unrelated to allergies, headache. Ebola Screen: No symptoms or risks identified at this time. Initial Sepsis Screen: Does the patient meet any 2 criteria? HR > 90 bpm. Yes Does the patient have a suspected source of infection? No. Patient's initial sepsis screen is negative. Risk Assessment: Do you want to hurt yourself or someone else? Patient reports no desire to harm self or others. 00:28 Method Of Arrival: Ambulatory j 00:28 Acuity: SERGIO 3 jj7 Triage Assessment: 00:30 General: Appears in no apparent distress. uncomfortable, Behavior is calm, cooperative, jj7 appropriate for age. Pain: Complains of pain in chest. Respiratory: Reports shortness of breath cough that is dry, Breath sounds are clear bilaterally. the patient has moderate shortness of breath. 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 - Social history:: Smoking status: Reported history of juuling and/or vaping. Patient/guardian denies using alcohol, street drugs. Screenin:00 [facility] ED Fall Risk Assessment (Adult) History of falling in the last 3 months, jb4 including since admission No falls in past 3 months (0 pts) Confusion or Disorientation No (0 pts). Abuse screen: Denies threats or abuse. Nutritional screening: No deficits noted. Tuberculosis screening: No symptoms or risk factors identified. Assessment: 00:46 Reassessment: see triage note. jb4 01:43 Reassessment: Patient appears in no apparent distress at this time. Patient and/or jb4 family updated on plan of care and expected duration. Pain level reassessed. Patient is alert, oriented x 3, equal unlabored respirations, skin warm/dry/pink. 03:31 Reassessment: Patient appears in no apparent distress at this time. Patient and/or jb4 family updated on plan of care and expected duration. Pain level reassessed. Patient is alert, oriented x 3, equal unlabored respirations, skin warm/dry/pink. Vital Signs: 00:28 BP 119 / 81; Pulse 118; Resp 19; Temp 98.5; Pulse Ox 100% ; Weight 107.5 kg; Height 5 jj7 ft. 1 in. ; Pain 8/10; 01:43 BP 112 / 90; Pulse 100; Resp 20; Pulse Ox 95% on R/A; jb4 03:00 BP 118 / 73; Pulse 86; Resp 16; Pulse Ox 97% on R/A; jb4 00:28 Body Mass Index 44.78 (107.50 kg, 154.94 cm) jj7 00:28 Pain Scale: Adult jj7 ED Course: 00:18 Patient arrived in ED. es 00:25 Wanda Humphreys MD is Attending Physician. gb1 00:30 Triage completed. jj7 00:30 Arm band placed on left wrist. jj7 00:45 XRAY Chest (1 view) In Process Unspecified. EDMS 01:45 Kevyn Garza, SCOTTIE is Primary Nurse. jb4 03:00 Patient has correct armband on for positive identification. Bed in low position. Call jb4 light in reach. Side rails up X 1. 03:00 No provider procedures requiring assistance completed. jb4 03:15 IV discontinued, intact, bleeding controlled, No redness/swelling at site. Pressure jb4 dressing applied. Administered Medications: 01:12 Drug: Ketorolac IVP 15 mg IVP once Route: IVP; Site: right antecubital; jb4 01:12 Drug: metoCLOPramide IVP 10 mg IVP once; over 1 to 2 minutes Route: IVP; Site: right jb4 antecubital; 01:12 Drug: diphenhydrAMINE IVP 12.5 mg IVP once Route: IVP; Site: right antecubital; jb4 01:12 Drug: NS 0.9% IV 1000 ml IV at 1000 ml once Route: IV; Rate: 1000 ml; Site: right jb4 antecubital; 01:12 Drug: Decadron - Dexamethasone IVP 10 mg IVP once Route: IVP; Site: right antecubital; jb4 01:12 Drug: Albuterol Inhalation 2.5 mg Inhalation once Route: Inhalation; jb4 01:12 Drug: Ipratropium Inhalation Aerosol 0.5 mg Inhalation once Route: Inhalation; jb4 Outcome: 03:14 Discharge ordered by gb1 03:15 Discharged to home ambulatory, jb4 03:15 Condition: stable 03:15 Discharge instructions given to patient, Instructed on discharge instructions, follow up and referral plans. Demonstrated understanding of instructions, follow-up care, 03:32 Patient left the ED. jb4 Signatures: Dispatcher [employer] EDMalu Schwartz, EMERGENCY ROOM RN-C EMERGENCY ROOM RN-CkShima Brown James, RN RN jb4 Nemo Schuler RN RN jj7 Wanda Humphreys MD MD gb1 Corrections: (The following items were deleted from the chart) 03:32 03:00 IV discontinued, intact, bleeding controlled, No redness/swelling at site. jb4 Pressure dressing applied, jb4
[2023-11-26 09:05] VITALS: BP 118/73; TEMP 98.5; O2SAT 97
--- NOTE | 2023-11-26 09:18 | RAD REPORT ---
EXAM DESCRIPTION: RAD - Chest Single View - 11/26/2023 12:44 am CLINICAL HISTORY: The patient is 28 years old and is Female; CHEST PAIN TECHNIQUE: Frontal view of the chest. COMPARISON: No relevant prior studies available. FINDINGS: Lungs: Unremarkable. No consolidation. Pleural space: Unremarkable. No pneumothorax. Heart: Unremarkable. Mediastinum: Unremarkable. Normal mediastinal contour. Bones/joints: No acute findings. IMPRESSION: No acute findings in the chest. Electronically signed by: Pablo Dudley MD 11/26/2023 01:06 AM AGRICULTURAL ECONOMICS PROFESSOR Due to temporary technical issues with the PACS/Fluency reporting system, reports are being signed by the in house radiologist without review as a courtesy to ensure prompt reporting. The interpreting r adiologist is fully responsible for the content of the report.
--- NOTE | 2023-11-27 13:26 | EKG ---
Test Date: 2023-11-26 Test Time: 00:46:17 Fagoting Machine Operator: HAMILTON MEASUREMENT RESULTS: Intervals: Rate: 105 AK: 168 QRSD: 84 QT: 340 QTc: 449 [place]: P: 35 AK: 168 QRS: 41 T: 25 INTERPRETIVE STATEMENTS: Sinus tachycardia Otherwise normal ECG Compared to ECG 03/01/2019 23:43:12 No significant changes Electronically Signed On 11-27-23 13:23:54 CREATIVE ARTS THERAPIST by Benigno Bird
== END ==
LOC: ER 00:12
DX: J20.9 Acute bronchitis, unspecified (principal); Z11.52 Encounter for screening for COVID-19
CPT/HCPCS: 93005; 85025; 80048; 36415; 84484; 87635; 87804 ×2; 71045; 96375; 96374; 99284; J2765; J1200; J7613; J7644; J1100; J7030

== ENCOUNTER 2024-12-10 18:23 | Emergency (ER) | payer OTHER ==
--- OUTSIDE RECORDS SUMMARY | 2024-12-10 18:29 | XMS REPORT | Continuity of Care Document ---
Author Name Unknown Address [address] [facility] [address] [place] [address] [facility] thconnect Address [address] [facility] [address] [place] [address] Care Team Providers Care Match Up Person Name Role Phone Alejandra Melina MICHAEL Primary Care Physician [phone] Alverto Barron Attending Clinician Unavailable JAN YATES Attending Clinician Unavailable KO KELLEY Attending Clinician Unavailable Jan Yates MD Attending Clinician [phone] Jada Caballero LMSW Attending Clinician Unava Jeanette Knutson PA-C Attending Clinician [phone] LIBERTAD BACON Attending Clinician Unavail able Doctor Unassigned, [place] Attending Clinician U Uziel Kulkarni Attending Clinician UZIEL DICKEY Attending Clinician Unavailab gladys Camacho RN, Supriya Mayes Attending Clinician Unavail able Drake Sanders MD Attending Clinician Marshall DURAN, Maria Isabel Main Attending Clinician [phone] Nain DURAN, Agustin Rod Attending Clinician [phone] Autumn DURAN, Archie Sanchez Attending Clinician + [phone] Albaro Khan DO Attending Clinician [phone] Akinsipe WHCNP, Libertad C Attending Clinician + Ultrasound, [facility] Attending Clinician Wicho Sandoval MD, Nolberto Morgan Attending Clinician [phone] Lab, [facility] Attending Clinician Unavailable 3, [facility] Usg Room Attending Clinician Wicho ahn 1, [facility] Room Attending Clinician Wicho Krause MD, Ranjith Main Attending Clinician [phone] MARIA ISABEL LAUREANO Admitting Clinician Unavailable SANDERSDRAKE Admitting Clinician Unavailalon Laureano MD, Maria Isabel Main Admitting Clinician [phone] Payers Payer Name Policy Type Policy Number Effective Date Expirati on Date Source [facility]LY [facility] MEDICAID [id number] 2016 00:00:00 Problems Condition Name Condition Details Condition Category Status Onset Date Resolution Date Last Treatment Date Treating Clinician Comments Source Rubella non-immune status, antepartum Rubella non-immune status, antepartum Disease Active 2019-11 00:00: 00 Overview: Formattin g of this note might be different from the original. Address pp [facility] Maternal varicella, non-immune Maternal varicella, non-immune Disease Active 2019-11 00:00: 00 Overview: Formattin g of this note might be different from the original. Address pp [facility] Multiparit y Multiparit y Disease Active 2019-11 00:00: 00 [facility] [id number] Migraine with aura and without status migrainosu s, not intractabl e Problem Common [place] [id number] Moderate episode of recurrent major depressive disorder Problem Common [place] [id number] Obesity, Class III, BMI 40-49.9 (morbid obesity) Problem Common [place] Allergies, Adverse Reactions, Alerts Allergy Name Allergy Type Status Severity Reaction(s) Onset Date Inactive Date Treating Clinician Comments Source NO KNOWN ALLERGIE S Drug Class Active [facility] Social History Social Habit Start Date Stop Date Quantity Comments Source History of Tobacco Use [facility] Sex Assigned At [facility] Alcohol intake 2021-09-20 00:00:00 2021-09-20 00:00:00 Current non-drinker of alcohol (finding) [facility] Tobacco use and exposure 2015-05-16 00:00:00 2015-05-16 00:00:00 Never used [facility] Smoking Status Start Date Stop Date Source Unknown if ever smoked Commo n [place] Former Smoker 2024-07-08 00:00:00 2024-07-08 00:00:00 [facility] Never smoker [facility] Medications Ordered Medication Name Filled Medication Name Start Date Stop Date Current Medication? Ordering Clinician Indication Dosage Frequency Signature (SIG) Comments Components Source Qsymia 3.75-23 MG Qsymia 3.75-23 MG 08-08 00:00: 00 No 1{capsu le} QD Qsymia 3.75-23 MG fluconazole 150 mg tablet 07-22 00:00: 00 Yes 1mg Preet Solitario metronidazo le 500 mg tablet 07-15 00:00: 00 Yes 1mg Preet Solitario TAKE 5 ML EVERY 4 TO 6 HOURS NEEDED. 03-13 00:00: 00 11-27 00:00 :00 No [id number] Preet Solitario TAKE 2 TABLETS ON DAY 1 THEN TAKE 1 TABLET A DAY FOR 4 DAYS. 03-13 00:00: 00 11-27 00:00 :00 No 250 Preet Solitario TAKE 1 TABLET DAILY. 03-13 00:00: 00 11-27 00:00 :00 No 20 Preet Solitario 1 CAP EVERY 8 HOURS NEEDED FOR COUGH 03-13 00:00: 00 11-27 00:00 :00 No 200 Preet Solitario TWICE DAILY BY MOUTH 2023-0 4-14 00:00: 00 11-27 00:00 :00 No 100 Preet Solitario IBUPROFEN 1-03 00:00: 00 11-27 00:00 :00 No 600 Preet Solitario FOLLOW PACKAGE DIRECTIONS 1-03 00:00: 00 11-27 00:00 :00 No Preet Solitario AMOX/K CLAV [id number] 1-03 00:00: 00 11-27 00:00 :00 No Preet Solitario Dose Unknown 2021-11 2-15 00:00: 00 11-27 00:00 :00 No Preet Marcel Solitario Dose Unknown 2021-11 2-15 00:00: 00 11-27 00:00 :00 No Preet Solitario AMOX/K CLAV [id number] 2-15 00:00: 00 11-27 00:00 :00 No Preet Solitario Dose Unknown 2021-11 2-15 00:00: 00 11-27 00:00 :00 No Preet Solitario TAKE 10ML BY MOUTH EVERY 4 HOURS NEEDED FOR COUGH AND CONGESTION 9-17 00:00: 00 11-27 00:00 :00 No Preet Solitario AMOX/K CLAV [id number] 9-17 00:00: 00 11-27 00:00 :00 No Preet Solitario Dose Unknown 8-11 00:00: 00 Yes Preet Solitario FLUCONAZOLE TAB 150MG 8-06 00:00: 00 Yes Preet Solitario METRONIDAZO L TAB 500MG 8-06 00:00: 00 Yes Preet Solitario &lt 8-06 00:00: 00 Yes Preet Solitario NITROFURANT N 8-06 00:00: 00 11-27 00:00 :00 No 100 Preet Solitario metronidazo le 500 mg tablet 2020-11 2-13 00:00: 00 Yes 1mg Preet Solitario Diflucan 150 mg tablet 2020-11 2- 00:00: 00 Yes 1mg Preet Solitario Augmentin 875 mg-125 mg tablet 2020-11 00:00: 00 Yes 1mg Preet Solitario No known medications 2020-11 09:05: 36 No [facility] Nexplanon 68 mg subdermal implant 06-07 00:00: 00 Yes 1mg Preet Solitario Flagyl 500 mg tablet 04-24 00:00: 00 Yes 1mg Preet Solitario Augmentin 875 mg-125 mg tablet 04-19 00:00: 00 Yes 1mg Preet Solitario dicyclomine 10 mg capsule 07-28 00:00: 00 Yes 1mg Preet Solitario pantoprazol e 40 mg tablet,rocael yed release 07-28 00:00: 00 Yes 1mg Preet Solitario Escitalopra m Oxalate 20 MG Escitalopra m Oxalate 20 MG No 1{table t} QD Escitalopr am Oxalate 20 MG Vital Signs Vital Name Observation Time Observation Value Comments S ource height 2024-08-08 15:00:00 61 [in_i] [facility] [place] weight 2024-08-08 15:00:00 234.4 [lb_av[facility] 2024-08-08 15:00:00 98.1 [degF] Com [facility] bmi 2024-08-08 15:00:00 44.28 kg/m2 Comm on [place] oximetry 2024-08-08 15:00:00 98 % [facility] [place] respiratory rate 2024-08-08 15:00:00 16 /min [facility] [place] blood pressure systolic 2024-08-08 15:00:00 134 mm[Hg] [facility] blood pressure diastolic 2024-08-08 15:00:00 75 mm[Hg] [facility] height 2024-07-08 15:00:00 61 [in_i] Commo n [place] weight 2024-07-08 15:00:00 236.6 [lb_av] Co mmon [place] temperature 2024-07-08 15:00:00 98.1 [degF] Com mon [place] bmi 2024-07-08 15:00:00 44.7 kg/m2 Com[facility] [place] oximetry 2024-07-08 15:00:00 98 % Com[facility] [place] respiratory rate 2024-07-08 15:00:00 17 /min Common [place] blood pressure systolic 2024-07-08 15:00:00 115 mm[Hg] Common [facility] blood pressure diastolic 2024-07-08 15:00:00 78 mm[Hg] [facility] Systolic blood pressure 2021-09-20 13:32:00 98 mm[Hg] [facility] Diastolic blood pressure 2021-09-20 13:32:00 67 mm[Hg] [facility] Heart rate 2021-09-20 13:32:00 92 /min [facility] Respiratory rate 2021-09-20 13:32:00 18 /min [facility] Body height 2021-09-20 13:32:00 154.9 cm [facility] Body weight 2021-09-20 13:32:00 102.655 kg [facility] BMI 2021-09-20 13:32:00 42.76 kg/m2 [facility] BP Diastolic 2024-07-15 16:24:00 71 mm[Hg] Lul Solitario Weight Measured 2024-07-15 16:24:00 233.80 pounds Preet Solitario Height Measured 2024-07-15 16:24:00 61.00 inches Preet Solitario Body Temperature 2024-07-15 16:24:00 98.30 degrees Preet Rod Altaf Heart Rate 2024-07-15 16:24:00 96.00 /min Deborah en F Altaf Respiratory Rate 2024-07-15 16:24:00 18.00 /min Preet Marcel Altaf BP Systolic 2024-07-15 16:24:00 107 mm[Hg] Step hen F Altaf BP Systolic 2023-11-24 10:27:00 113 mm[Hg] Step hen F Altaf BP Diastolic 2023-11-24 10:27:00 69 mm[Hg] Lul phen F Altaf Weight Measured 2023-11-24 10:27:00 237.00 pounds Preet F Altaf Height Measured 2023-11-24 10:27:00 61.00 inches Preet F Altaf Body Temperature 2023-11-24 10:27:00 98.30 degrees Preet F Altaf Heart Rate 2023-11-24 10:27:00 90.00 /min Deborah en F Altaf Respiratory Rate 2023-11-24 10:27:00 Preet F Altaf BP Systolic 2023-11-21 10:49:00 114 mm[Hg] Step hen F Altaf BP Diastolic 2023-11-21 10:49:00 80 mm[Hg] Lul phen F Altaf Weight Measured 2023-11-21 10:49:00 231.40 pounds Preet F Alatf Height Measured 2023-11-21 10:49:00 61.00 inches Preet F Altaf Body Temperature 2023-11-21 10:49:00 98.80 degrees Preet F Altaf Heart Rate 2023-11-21 10:49:00 99.00 /min Deborah en F Altaf Respiratory Rate 2023-11-21 10:49:00 Preet F Altaf BP Systolic 2023-04-28 16:06:00 125 mm[Hg] Step hen F Altaf BP Diastolic 2023-04-28 16:06:00 79 mm[Hg] Lul phen F Altaf Weight Measured 2023-04-28 16:06:00 223.20 pounds Preet F Altaf Height Measured 2023-04-28 16:06:00 24.02 inches Preet F Altaf Body Temperature 2023-04-28 16:06:00 98.10 degrees Preet F Altaf Heart Rate 2023-04-28 16:06:00 98.00 /min Deborah en F Altaf Respiratory Rate 2023-04-28 16:06:00 17.00 /min Preet F Altaf BP Systolic 2023-02-27 13:36:00 106 mm[Hg] Step hen F Altaf BP Diastolic 2023-02-27 13:36:00 74 mm[Hg] Lul phen F Altaf Weight Measured 2023-02-27 13:36:00 217.00 pounds Preet F Altaf Height Measured 2023-02-27 13:36:00 61.00 inches Preet F Altaf Body Temperature 2023-02-27 13:36:00 98.10 degrees Preet F Altaf Heart Rate 2023-02-27 13:36:00 107.00 /min Step hen F Altaf Respiratory Rate 2023-02-27 13:36:00 Preet F Altaf BP Systolic 2022-10-27 11:35:00 116 mm[Hg] Step hen F Altaf BP Diastolic 2022-10-27 11:35:00 75 mm[Hg] Lul phen F Altaf Weight Measured 2022-10-27 11:35:00 208.80 pounds Preet F Altaf Height Measured 2022-10-27 11:35:00 61.00 inches Preet F Altaf Body Temperature 2022-10-27 11:35:00 98.20 degrees Preet F Altaf Heart Rate 2022-10-27 11:35:00 90.00 /min Deborah en F Altaf Respiratory Rate 2022-10-27 11:35:00 18.00 /min Preet F Altaf BP Systolic 2022-06-21 11:47:00 117 mm[Hg] Step hen F Altaf BP Diastolic 2022-06-21 11:47:00 79 mm[Hg] Lul phen F Altaf Weight Measured 2022-06-21 11:47:00 215.40 pounds Preet F Altaf Height Measured 2022-06-21 11:47:00 61.00 inches Preet F Altaf Body Temperature 2022-06-21 11:47:00 98.70 degrees Preet F Altaf Heart Rate 2022-06-21 11:47:00 81.00 /min Deborah en F Altaf Respiratory Rate 2022-06-21 11:47:00 21.00 /min Preet F Altaf BP Systolic 2021-11-13 09:39:00 Step hen F Altaf BP Diastolic 2021-11-13 09:39:00 Lul phen F Altaf Weight Measured 2021-11-13 09:39:00 230.00 pounds Preet F Altaf Height Measured 2021-11-13 09:39:00 61.00 inches Preet F Altaf Body Temperature 2021-11-13 09:39:00 Preet F Altaf Heart Rate 2021-11-13 09:39:00 Deborah en F Altaf Respiratory Rate 2021-11-13 09:39:00 Preet F Altaf BP Systolic 2021-10-28 09:35:00 107 mm[Hg] Step hen F Altaf BP Diastolic 2021-10-28 09:35:00 67 mm[Hg] Lul phen F Altaf Weight Measured 2021-10-28 09:35:00 218.60 pounds Preet F Altaf Height Measured 2021-10-28 09:35:00 61.00 inches Preet F Altaf Body Temperature 2021-10-28 09:35:00 98.20 degrees Preet F Altaf Heart Rate 2021-10-28 09:35:00 87.00 /min Deborah en F Altaf Respiratory Rate 2021-10-28 09:35:00 21.00 /min Preet F Altaf BP Systolic 2021-06-14 14:07:00 115 mm[Hg] Step hen F Altaf BP Diastolic 2021-06-14 14:07:00 75 mm[Hg] Lul phen F Altaf Weight Measured 2021-06-14 14:07:00 211.80 pounds Preet F Altaf Height Measured 2021-06-14 14:07:00 61.00 inches Preet F Altaf Body Temperature 2021-06-14 14:07:00 98.20 degrees Preet F Altaf Heart Rate 2021-06-14 14:07:00 90.00 /min Deborah en F Altaf Respiratory Rate 2021-06-14 14:07:00 Preet Solitario Encounters Start Date/Time End Date/Time Encounter Type Admission Type Attending [facility] Care Department Encounter ID Source 2024-09-06 11:52:00 Outpatient Alverto Barron [facility] [id number] [facility] 2024-08-08 14:50:00 Outpatient Alverto Barron [facility] [id number] [facility] 2024-08-04 09:00:01 Outpatient Alverto Barron [facility] [id number] [facility] 2024-07-08 14:02:00 Outpatient Alverto Barron [facility] [id number] [facility] 2021-09-16 02:08:21 Outpatient U [facility] [id number] [facility] 2021-09-16 00:32:22 Inpatient P [facility] [id number] [facility] 2021-09-15 20:36:11 Outpatient [facility] [id number] [facility] 2024-08-12 00:00:00 2024-08-12 00:00:00 (TEL) [facility]LMLC [facility] [id number] [facility] 2024-08-08 00:00:00 2024-08-08 00:00:00 (WELLNESS) Wellness Visit [facility] [id number] [facility] 2024-08-08 00:00:00 2024-08-08 00:00:00 (WEB) STLMLC [facility] [id number] [facility] 2024-07-15 16:16:02 2024-07-15 16:16:02 Outpatient SFA [facility] [id number] Preet F Altaf 2024-07-15 00:00:00 2024-07-15 00:00:00 Outpatient Visit S[facility] [id number] Preet Marcel Altaf 2024-07-08 00:00:00 2024-07-08 00:00:00 OFFICE VISIT NEW PT LEVEL 4 [id number] 2023-11-24 10:20:28 2023-11-24 10:20:28 Outpatient SFA SFA [id number] Preet Marcel Altaf 2023-11-21 10:35:46 2023-11-21 10:35:46 Outpatient SFA SFA [id number] Preet Marcel Altaf 2023-04-28 15:55:39 2023-04-28 15:55:39 Outpatient SFA SFA [id number] Preet Marcel Altaf 2023-03-14 09:22:37 2023-03-14 09:22:[address] [facility] [id number] Preet Solitario 2023-02-27 13:26:09 2023-02-27 13:26:09 Outpatient [facility] [id number] Preet Solitario 2022-10-27 10:54:09 2022-10-27 10:54:09 Outpatient [facility] [id number] Preet Solitario 2022-03-21 09:30:00 2022-03-21 09:30:00 Outpatient R JAN YATES [facility] [id number] [facility] 2022-03-21 09:30:00 2022-03-21 09:30:00 Outpatient R JAN YATES [facility] [id number] [facility] 2021-12-11 10:45:00 2021-12-11 10:45:00 Outpatient KO ESPINO [facility] [id number] [facility] 2021-09-20 08:30:00 2021-09-20 09:07:04 Outpatient R YATES JAN [facility] [id number] [facility] 2021-09-20 08:23:27 2021-09-20 09:07:04 Office Visit Jan Yates [facility] 1.840.114 350.1.13.10 4.2.7.2.686 [id number] [facility] 2021-09-20 08:30:00 2021-09-20 08:30:00 Outpatient R JAN YATES [facility] [id number] [facility] 2021-08-30 00:00:00 2021-08-30 00:00:00 Case Management Jada Caballero 1..840.114 350.1.13.10 4.2.7.2.686 [id number] [facility] 2021-08-01 00:00:00 2021-08-01 00:00:00 Telephone Jeanette Maher [facility] 1.840.114 350.1.13.10 4.2.7.2.686 [id number] [facility] 2021-07-26 12:45:00 2021-07-26 12:45:00 Outpatient R JAN YATES [facility] [id number] [facility] 2021-07-25 00:00:00 2021-07-25 00:00:00 Telephone Jan Yates [facility] Building 1.840.114 350.1.13.10 4.2.7.2.686 [id number] [facility] 2021-07-19 13:30:16 2021-07-19 14:08:41 Office Visit Jan Yates [facility] 1..114 350.1.13.10 4.2.7.2.686 [id number] [facility] 2021-07-19 13:30:00 2021-07-19 13:30:00 Outpatient R JAN YATES [facility] [id number] [facility] 2021-05-29 15:15:00 2021-05-29 15:15:00 Outpatient R LIBERTAD BACON [facility] [id number] [facility] 2021-05-15 00:00:00 2021-05-15 00:00:00 Orders Only Doctor Unassigned, [place] [facility] 1.20.114 350.1.13.10 4.2.7.2.686 [id number] 2021-05-15 00:00:00 2021-05-15 00:00:00 Orders Only Doctor Unassigned, [place] [facility] 1.2840.114 350.1.13.10 4.2.7.2.686 [id number] [facility] 2021-05-08 15:10:42 2021-05-08 15:39:26 Routine Visit Uziel Dickey [facility] 1.2.840.114 350.1.13.10 4.2.7.2.686 [id number] 2021-05-08 15:10:42 2021-05-08 15:39:26 Routine Visit Uziel Dickey [facility] 1.2.840.114 350.1.13.10 4.2.7.2.686 [id number] [facility] 2021-05-08 15:00:00 2021-05-08 15:00:00 Outpatient R UZIEL DICKEY [facility] [id number] [facility] 2021-05-06 00:00:00 2021-05-06 00:00:00 Transition of Care Trey Camachomackenzie Singh 1.2.840.114 350.1.13.10 4.2.7.2.686 [id number] 2021-05-06 00:00:00 2021-05-06 00:00:00 Transition of Care Trey Camachomackenzie Singh 1.2.840.114 350.1.13.10 4.2.7.2.686 [id number] [facility] 2021-04-25 20:06:00 2021-05-03 10:30:00 [facility].2.[facility].114 350.1.13.10 4.2.7.2.686 [id number] 2021-04-25 20:06:00 2021-05-03 10:30:00 [facility] 1.2.[facility].114 350.1.13.10 4.2.7.2.686 [id number] [facility] 2021-04-05 15:00:00 2021-04-08 13:00:00 Hospital Encounter Agustin Gillette 1.2.840.1 [id number] 3.104.2.7 .3.183381 .8 [id number] [facility] 2021-04-05 21:19:00 2021-04-06 13:54:00 Anesthesia Event Archie Leyva Tom 1.2.840.1 [id number] 3.104.2.7 .3.928488 .8 [id number] [facility] 2021-04-05 14:15:00 2021-04-05 14:15:00 Outpatient R LIBERTAD BACON [facility] [id number] [facility] 2021-04-05 00:00:00 2021-04-05 00:00:00 Travel 1.2.840.1 [id number] 3.104.2.7 .[id number] .8 1.2.840.114 350.1.13.10 4.2.7.3.698 [id number] [facility] 2021-03-29 12:56:20 2021-03-29 13:26:57 Routine Visit Libertad Bacon [facility] 1.2.840.114 350.1.13.10 4.2.7.2.686 [id number] 2021-03-29 12:56:20 2021-03-29 13:26:57 Routine Visit Libertad Bacon 1.2.840.1 [id number] 3.104.2.7 .3.388645 .8 [id number] [facility] 2021-03-29 13:00:00 2021-03-29 13:00:00 Outpatient R LIBERTAD BACON [facility] [id number] [facility] 2021-03-29 00:00:00 2021-03-29 00:00:00 Travel 1.2.840.1 [id number] 3.104.2.7 .3.689715 .8 1.2.840.114 350.1.13.10 4.2.7.3.698 [id number] [facility] 2021-03-27 00:00:00 2021-03-27 00:00:00 Travel 1.2.840.1 [id number] 3.104.2.7 .3.743852 .8 1.2.840.114 350.1.13.10 4.2.7.3.698 [id number] [facility] 2021-03-22 15:00:00 2021-03-22 15:00:00 Outpatient R LIBERTAD BACON [facility] [id number] [facility] 2021-03-15 13:06:32 2021-03-15 13:45:27 Routine Visit Libertad Bacon [facility] 1.2.840.114 350.1.13.10 4.2.7.2.686 [id number] 2021-03-15 13:06:32 2021-03-15 13:45:27 Routine Visit Libertad Bacon 1.2.840.1 [id number] 3.104.2.7 .3.008272 .8 [id number] [facility] 2021-03-15 13:00:00 2021-03-15 13:00:00 Outpatient R LIBERTAD BACON [facility] [id number] [facility] 2021-03-15 00:00:00 2021-03-15 00:00:00 Telephone Libertad Bacon [facility] 1.2.840.114 350.1.13.10 4.2.7.2.686 [id number] 2021-03-15 00:00:00 2021-03-15 00:00:00 Telephone Libertad Bacon 1.2.840.1 [id number] 3.104.2.7 .3.794211 .8 [id number] [facility] 2021-03-15 00:00:00 2021-03-15 00:00:00 Travel 1.2.840.1 13491.1.1 3.104.2.7 .3.640598 .8 1.2.840.114 350.1.13.10 4.2.7.3.698 [id number] [facility] 2021-03-08 12:47:55 2021-03-08 13:16:26 Routine Visit Libertad Bacon 1.2.840.1 [id number] 3.104.2.7 .3.275926 .8 [id number] [facility] 2021-03-08 12:45:00 2021-03-08 12:45:00 Outpatient R LIBERTAD BACON [facility] [id number] [facility] 2021-03-08 00:00:00 2021-03-08 00:00:00 Travel 1.2.840.1 [id number] 3.104.2.7 .3.983858 .8 1.2.840.114 350.1.13.10 4.2.7.3.698 [id number] [facility] 2021-02-15 12:48:13 2021-02-15 13:26:32 Routine Visit Libertad Bacon 1.2.840.1 [id number] 3.104.2.7 .3.647733 .8 [id number] [facility] 2021-02-15 12:45:00 2021-02-15 12:45:00 Outpatient R LIBERTAD BACON [facility] [id number] [facility] 2021-02-15 00:00:00 2021-02-15 00:00:00 Travel 1.2.840.1 [id number] 3.104.2.7 .3.077750 .8 1.2.840.114 350.1.13.10 4.2.7.3.698 [id number] [facility] 2021-02-08 13:00:00 2021-02-08 13:00:00 Outpatient R LIBERTAD BACON [facility] [id number] [facility] 2021-01-25 09:30:30 2021-01-25 10:29:38 Routine Visit Libertad Bacon [facility] 1..840.114 350.1.13.10 4.2.7.2.686 [id number] [facility] 2021-01-25 09:30:00 2021-01-25 09:30:00 Outpatient R LIBERTAD BACON [facility] [id number] [facility] 2021-01-11 10:53:27 2021-01-11 11:36:00 Routine Visit Libertad Bacon [facility] 1.2.840.114 350.1.13.10 4.2.7.2.686 [id number] [facility] 2021-01-11 11:00:00 2021-01-11 11:00:00 Outpatient R LIBERTAD BACON [facility] [id number] [facility] 2020-12-27 00:00:00 2020-12-27 00:00:00 Telephone Libertad Bacon [employer] [facility] 1..840.114 350.1.13.10 4.2.7.2.686 [id number] [facility] 2020-12-21 00:00:00 2020-12-21 00:00:00 Orders Only Doctor Unassigned, [place] [facility] 1.2.840.114 350.1.13.10 4.2.7.2.686 [id number] [facility] 2020-12-14 09:47:51 2020-12-14 10:56:01 Routine Visit Libertad Bacon [facility] [employer] 1.2.840.114 350.1.13.10 4.2.7.2.686 [id number] [facility] 2020-12-14 09:45:00 2020-12-14 09:45:00 Outpatient R LIBERTAD BACON [facility] [id number] [facility] 2020-11-19 09:56:50 2020-11-19 11:27:45 Ear Flap Binder Visit Ultrasound, Libertad Arguello George [facility] [employer] [facility] 1.2.840.114 350.1.13.10 4.2.7.2.686 [id number] [facility] 2020-11-19 09:08:12 2020-11-19 09:40:42 Routine Visit Libertad Bacon [facility] [employer] 1.2.840.114 350.1.13.10 4.2.7.2.686 [id number] [facility] 2020-11-19 09:15:00 2020-11-19 09:15:00 Outpatient R LIBERTAD BACON [facility] [id number] [facility] 2020-11-19 00:00:00 2020-11-19 00:00:00 Orders Only Doctor Unassigned, [place] [facility] 1.0.114 350.1.13.10 4.2.7.2.686 [id number] [facility] 2020-11-19 00:00:00 2020-11-19 00:00:00 Abstract Libertad Bacon [facility] [facility] 1.840.114 350.1.13.10 4.2.7.2.686 [id number] [facility] 2020-11-13 08:15:00 2020-11-13 08:15:00 Outpatient R LIBERTAD BACON [facility] [id number] [facility] 2020-11-06 13:15:00 2020-11-06 13:15:00 Outpatient R LIBERTAD BACON [facility] [id number] [facility] 2020-11-06 10:45:00 2020-11-06 10:45:00 Outpatient R LIBERTAD BACON [facility] [id number] [facility] 2020-10-10 09:45:00 2020-10-10 09:45:00 Outpatient R LIBERTAD BACON [facility] [id number] [facility] 2020-10-09 10:35:23 2020-10-09 10:50:23 Routine Visit Libertad Bacon [facility] .114 350.1.13.10 4.2.7.2.686 [id number] [facility] 2020-10-09 10:45:00 2020-10-09 10:45:00 Outpatient R LIBERTAD BACON [facility] [id number] [facility] 2020-09-27 00:00:00 2020-09-27 00:00:00 Orders Only Doctor Unassigned, [place] [facility] 1.84.114 350.1.13.10 4.2.7.2.686 [id number] [facility] 2020-09-26 00:00:00 2020-09-26 00:00:00 Abstract Libertad Bacon [facility] 1.2.840.114 350.1.13.10 4.2.7.2.686 [id number] [facility] 2020-09-26 00:00:00 2020-09-26 00:00:00 Abstract Libertad Bacon [facility] 1.2.840.114 350.1.13.10 4.2.7.2.686 [id number] [facility] 2020-09-24 14:44:26 2020-09-24 14:55:44 Ear Flap Binder Visit Lab, [facility] Marshall Maria Isabel [facility] 1.0.114 350.1.13.10 4.2.7.2.686 [id number] [facility] 2020-09-24 13:17:42 2020-09-24 14:32:26 Ear Flap Binder Visit 3, [facility] Room Marshall Maria Isabel [facility] 1.0.114 350.1.13.10 4.2.7.2.686 [id number] [facility] 2020-09-24 13:00:00 2020-09-24 13:00:00 Outpatient [facility] [id number] [facility] 2020-09-17 10:37:50 2020-09-17 11:36:49 Ear Flap Binder Visit 1, [facility] Room Ranjith Krause [facility] 1..114 350.1.13.10 4.2.7.2.686 [id number] [facility] 2020-09-17 10:30:00 2020-09-17 10:30:00 Outpatient [facility] [id number] [facility] 2020-09-17 00:00:00 2020-09-17 00:00:00 Telephone Arleen Libertad Pratt [facility] 1.2.840.114 350.1.13.10 4.2.7.2.686 [id number] [facility] 2020-09-17 00:00:00 2020-09-17 00:00:00 Abstract Samantha Baconmarv Pratt [facility] 1.2.840.114 350.1.13.10 4.2.7.2.686 [id number] [facility] 2020-09-13 13:26:47 2020-09-14 09:39:46 Initial Visit Libertad Bacon [facility] 1.2.840.114 350.1.13.10 4.2.7.2.686 [id number] [facility] 2020-09-14 00:00:00 2020-09-14 00:00:00 Telephone ChelleerrolVitaliyLibertad C [facility] 1.2.840.114 350.1.13.10 4.2.7.2.686 [id number] [facility] 2020-09-14 00:00:00 2020-09-14 00:00:00 Telephone Libertad Bacon [facility] 1.2.840.114 350.1.13.10 4.2.7.2.686 [id number] [facility] 2020-09-14 00:00:00 2020-09-14 00:00:00 Telephone Libertad Bacon [facility] 1.2.840.114 350.1.13.10 4.2.7.2.686 [id number] [facility] 2020-09-13 13:30:00 2020-09-13 13:30:00 Outpatient R LIBERTAD BACON [facility] [id number] [facility] 2020-09-13 00:00:00 2020-09-13 00:00:00 Orders Only Doctor Unassigned, [place] [facility] 1.2.840.114 350.1.13.10 4.2.7.2.686 [id number] [facility] Results Test Description Test Time Test Comments Results Result Co mments Source Preet SolitarioVAGINAL PATHOGENS DNA [id number] 00:00:00* Test Item Value Reference Range Interpretation Comme nts THALIA SPECIES (test code = 42225) POSITIVE G. VAGINALIS (test code = 35402) NEGATIVE T. VAGINALIS (test code = 73232) NEGATIVE Preet SolitarioCULTURE, [id number] 14:54:07SPECIMEN NUMBER: [id number] CULTURE, URINE SPECIMEN NUMBER: [id number] SPECIMEN COMMENT: URINE SOURCE: URINE REPORT STATUS: FINAL ISOLATE NUMBER 1: ORGANISM: 03/02/2023 10-50,000 CFU/ML STAPHYLOCOCCUS AUREUS IDENTIFICATION: STAPHYLOCOCCUS AUREUS STAPH. AUREUS AMOXICILLIN/CA SENSITIVE <=4/2CEFAZOLIN SENSITIVE <=4NITROFURANTOIN SENSITIVE <=32OXACILLIN SENSITIVE 1RIFAMPIN SENSITIVE <=1TETRACYCLINE SENSITIVE <=1TRIMETH/SULFA SENSITIVE *1 Note 1: <=0.5/9.5VANCOMYCIN SENSITIVE 2 NOTE: NUMBERS DISPLAYED REPRESENT MINIMUM INHIBITORY CONCENTRATION (ALEXA) WHICH IS EXPRESSED IN MCG/ML. [facility] has important pathology staff changes effective 01/14/2023. New pathology staff will provide uninterrupted, excellent patient care and clinical consultation. See URL: [email or web address]. UNLESS OTHERWISE INDICATED, ALL TESTING PERFORMED AT [facility] [address] [place] [address] TREE TRIMMER: LISBET PERSAUD M.D. CLIA NUMBER [id number] [place]. [id number], [id number] 00:00:00* Test Item Value Reference Range Interpretation Comme nts CULTURE, URINE (test code = 73250) SPECIMEN NUMBER: [id number] Preet Rod AustinCT/NG, NAAT, [id number] 12:53:39* Test Item Value Reference Range Interpretation Comme nts GONORRHEA, NAAT (test code = 60153) NEGATIVE NEGATIVE IMPORTANT NO SYEDA: SEE ANNOUNCEMENT AT [email or web address] Note: Assay methodology is nucleic acid amplification by chamber magistrate mediated amplification (TMA) utilizing the [employer] Combo 2 Assay. CHLAMYDIA, NAAT (test code = 57380) NEGATIVE NEGATIVE IMPORTANT NO SYEDA: SEE ANNOUNCEMENT AT [email or web address] kSARIA Note: Assay methodology is nucleic acid amplification by chamber magistrate mediated amplification (TMA) utilizing the [employer] Combo 2 Assay. UNLESS OTHERWISE INDICATED, ALL TESTING PERFORMED [facility] [address] [place] [address] TREE TRIMMER: ELLE GERARDO M.D. CLIA NUMBER [id number] [place]. [id number] CULTURE, [id number] 11:51:43SPECIMEN NUMBER: [id number] CULTURE, URINE SPECIMEN NUMBER: [id number] SPECIMEN COMMENT: URINE SOURCE: URINE REPORT STATUS: FINAL ISOLATE NUMBER 1: ORGANISM: 06/23/2022 >100,000 CFU/ML GRAM NEGATIVE BACILLI IDENTIFICATION: 06/24/2022 ESCHERICHIA COLI E. COLI AMOXICILLIN/CA SENSITIVE <=8/4AMPICILLIN SENSITIVE <=8CEFAZOLIN SENSITIVE <=2CEFTRIAXONE SENSITIVE <=1CIPROFLOXACIN SENSITIVE <=1LEVOFLOXACIN SENSITIVE <=2NITROFURANTOIN SENSITIVE <=32PIP/TAZOBAC SENSITIVE <=16TETRACYCLINE SENSITIVE <=4TOBRAMYCIN SENSITIVE <=4TRIMETH/SULFA SENSITIVE <=2/38 NOTE: NUMBERS DISPLAYED REPRESENT MINIMUM INHIBITORY CONCENTRATION (ALEXA) WHICH IS EXPRESSED IN MCG/ML.GC AND CHLAMYDIA, AMPLIFIED, [id number] 00:00:00* Test Item Value Reference Range Interpretation Comme nts GONORRHEA, NAAT (test code = 06951) NEGATIVE CHLAMYDIA, NAAT (test code = 65905) NEGATIVE Preet SolitarioCULTURE, [id number] 00:00:00* Test Item Value Reference Range Interpretation Comme nts CULTURE, URINE (test code = 02522) SPECIMEN NUMBER: [id number] Preet SolitarioSARS-CoV-2 (COVID-19), RT-PCR/[id number] 16:30:16* Test Item Value Reference Range Interpretation Comments SARS-CoV-2 INTERPRETATION (test code = 14822) POSITIVE SEE NOTE A SARS-CoV-2 RNA DETECTEDPositive results are indicative of the presence of SARS-CoV-2 RNA;clinical correlation with patient history and other diagnosticinformation is necessary to determine patient infection status.Positive results do not rule out bacterial infection or co-infectionwith other viruses. Positive and negative predictive values oftesting are highly dependent on prevalence. SOURCE (test code = 91887) NASOPHARYNGEAL Note: Methodolog y is Jessica Michael Real-Time RT-PCR. The expected result or reference range is NEGATIVE (Not Detected). For more information regarding COVID-19 testing to include clinicalinformation, methodology detail, intended use, FDA authorization andrecommended fact sheets for patients or healthcare providers, see NewAdvebs Announcement: SARS-CoV-2 (COVID-19) by NAAT at URL below (note,fact sheets are provided by method given in report:[email or web address] Alternatively, see downloadable PDF fact sheet at:[email or web address] UNLESS OTHERWISE INDICATED, ALL TESTING PERFORMED [facility] [address] [place] [address] TREE TRIMMER: ELLE GERARDO M.D. CLIA NUMBER [id number] [place]. [id number] SARS-CoV-2 (COVID-19) by RT-PCR (HIGH RISK)2021-11-24 00:00:00* Test Item Value Reference Range Interpretation Comme nts SARS-CoV-2 INTERPRETATION (test code = 87813) POSITIVE SOURCE (test code = 00052) NASOPHARYNGEAL Peret SolitarioGC AND CHLAMYDIA, AMPLIFIED, [id number] 00:00:00* Test Item Value Reference Range Interpretation Comme nts GONORRHEA, NAAT (test code = 59664) NEGATIVE CHLAMYDIA, NAAT (test code = 59542) NEGATIVE Preet SolitarioHIV AB/AG COMBO RFLX [id number] 00:00:00* Test Item Value Reference Range Interpretation Comme nts HIV 1/2 4TH GEN, RFLX CONF ( test code = 3514) NON-REACTIVE Preet [id number] 00:00:00* Test Item Value Reference Range Interpretation Comme nts RPR RESULT (test code = 3501) NON-REACTIVE RPR TITER (test code = 3500) NOT INDIC. TITER Preet SolitarioACUTE HEPATITIS [id number] 00:00:00* Test Item Value Reference Range Interpretation Comme nts HEPATITIS A IgM (test code = 69848) NON-REACTIVE HEPATITIS B CORE IgM (test c ode = 4644) NON-REACTIVE HEPATITIS B SURF AG (test co de = 2739) NON-REACTIVE HEPATITIS C ANTIBODY (test c ode = 4675) NON-REACTIVE INTERPRETATION HEPATITIS A: (test code = 2552) (NOTE) INTERPRETATION HEPATITIS B: (test code = 23877) (NOTE) INTERPRETATION HEPATITIS C: (test code = 09625) (NOTE) Preet SolitarioVAGINAL PATHOGENS DNA [id number] 00:00:00* Test Item Value Reference Range Interpretation Comme nts THALIA SPECIES (test code = 02211) POSITIVE G. VAGINALIS (test code = 54661) POSITIVE T. VAGINALIS (test code = 32731) NEGATIVE Preet SolitarioCULTURE, [id number] 00:00:00* Test Item Value Reference Range Interpretation Comme nts CULTURE, URINE (test code = 76302) SPECIMEN NUMBER: [id number] Preet Rod AustinVAGINAL PATHOGENS DNA [id number] 00:00:00* Test Item Value Reference Range Interpretation Comme nts THALIA SPECIES (test code = 30582) NEGATIVE G. VAGINALIS (test code = 74090) POSITIVE T. VAGINALIS (test code = 87464) NEGATIVE Preet SolitarioCOMPREHENSIVE METABOLIC [id number] 00:00:00* Test Item Value Reference Range Interpretation Comme nts GLUCOSE (test code = 2217) 93 MG/DL BUN (test code = 2208) 21 MG/DL CREATININE (test code = 2214) 0.78 MG/DL eGFR AMER. (test cod e = 49856) 123 ML/MIN/1.73 eGFR NON- AMER. (test code = 34051) 106 ML/MIN/1.73 CALC BUN/CREAT (test code = 2235) 27 RATIO SODIUM (test code = 2231) 144 MEQ/L POTASSIUM (test code = 2228) 4.4 MEQ/L CHLORIDE (test code = 2215) 104 MEQ/L CARBON DIOXIDE (test code = 2206) 24 MEQ/L CALCIUM (test code = 2209) 9.6 MG/DL PROTEIN, TOTAL (test code = 2229) 8.2 G/DL ALBUMIN (test code = 2201) 4.4 G/DL CALC GLOBULIN (test code = 2240) 3.8 G/DL CALC A/G RATIO (test code = 2234) 1.2 RATIO BILIRUBIN, TOTAL (test code = 2207) 0.3 MG/DL ALKALINE PHOSPHATASE (test code = 2204) 130 U/L AST (test code = 2218) 17 U/L ALT (test code = 2219) 21 U/L Preet Rod AltafCULTURE, [id number] 00:00:00* Test Item Value Reference Range Interpretation Comme nts CULTURE, URINE (test code = 10168) SPECIMEN NUMBER: [id number] Preet Rod [facility] W/AUTO [id number] 00:00:00* Test Item Value Reference Range Interpretation Comme nts WBC (test code = 1001) 12.5 K/UL [...] = 1013) 0.3 % IMMATURE GRANULOCYTES (test code = 1036) 0.4 % NUCLEATED RBCS (test code = 1065) 0.0 /100WBC'S PLATELET COUNT (test code = 1015) 450 K/UL ABSOLUTE NEUTROPHILS (test c ode = 1066) 9.13 K/UL ABSOLUTE LYMPHOCYTES (test c ode = 1067) 2.78 K/UL ABSOLUTE MONOCYTES (test cod e = 1068) 0.41 K/UL ABSOLUTE EOSINOPHILS (test c ode = 1040) 0.13 K/UL ABSOLUTE BASOPHILS (test cod e = 1069) 0.04 K/UL ABS IMMATURE GRANULOCYTES (t est code = 1020) 0.05 K/UL ABS NUCLEATED RBCS (test cod e = 78999) 0.00 K/UL Preet SolitarioCOMPREHENSIVE METABOLIC [id number] 00:00:00* Test Item Value Reference Range Interpretation Comme nts GLUCOSE (test code = 2217) 75 MG/DL BUN (test code = 2208) 12 MG/DL CREATININE (test code = 2214) 0.56 MG/DL eGFR AMER. (test cod e = 78528) 154 ML/MIN/1.73 eGFR NON- AMER. (test code = 24955) 133 ML/MIN/1.73 CALC BUN/CREAT (test code = 2235) 21 RATIO SODIUM (test code = 2231) 141 MEQ/L POTASSIUM (test code = 2228) 4.3 MEQ/L CHLORIDE (test code = 2215) 103 MEQ/L CARBON DIOXIDE (test code = 2206) 23 MEQ/L CALCIUM (test code = 2209) 10.1 MG/DL PROTEIN, TOTAL (test code = 2229) 7.9 G/DL ALBUMIN (test code = 2201) 4.6 G/DL CALC GLOBULIN (test code = 2240) 3.3 G/DL CALC A/G RATIO (test code = 2234) 1.4 RATIO BILIRUBIN, TOTAL (test code = 2207) 0.4 MG/DL ALKALINE PHOSPHATASE (test code = 2204) 92 U/L AST (test code = 2218) 15 U/L ALT (test code = 2219) 14 U/L Preet SolitarioLIPID [id number] 00:00:00* Test Item Value Reference Range Interpretation Comme nts CHOLESTEROL (test code = 2210) 152 MG/DL TRIGLYCERIDES (test code = 2232) 86 MG/DL HDL CHOLESTEROL (test code = 2220) 37 MG/DL CALC LDL CHOL (test code = 2237) 98 MG/DL RISK RATIO LDL/HDL (test cod e = 2238) 2.64 RATIO Preet Marcel [id number] 00:00:00* Test Item Value Reference Range Interpretation Comme nts LIPASE (test code = 2058) 21 U/L Preet [id number] 00:00:00* Test Item Value Reference Range Interpretation Comme nts AMYLASE (test code = 2205) 53 U/L Preet Solitario
[2024-12-10] MEDS ORDERED: IBUPROFEN 400 MG TAB ONE (19:01)
--- NOTE | 2024-12-10 19:41 | RAD REPORT ---
Exam:Knee Left 3 View HISTORY: Left knee pain FINDINGS: No fracture or dislocation seen
--- NOTE | 2024-12-10 20:42 | EDPHYS ---
Physician Documentation [facility] Name: Vira Silva Age: 29 yrs Sex: Female : 1995 Arrival Date: 12/10/2024 Time: 18:23 Bed 9 Private MD: ED Physician Gallo Paredes HPI: 12/10 19:00 This 29 yrs old Female presents to ER via Wheelchair with complaints of Knee cp Pain, Knee Injury. 19:00 The patient presents with an injury, pain, that is acute. The complaints affect the cp left knee. Context: resulted from fall directly onto left knee. 19:00 Onset: The symptoms/episode began/occurred 2 day(s) ago. cp 19:00 Associated signs and symptoms: The patient has no apparent associated signs or cp symptoms. Treatment prior to arrival includes: no previous treatment. Historical: - Allergies: 18:35 No Known Allergies; ko1 - PMHx: 18:35 GALLSTONES; ko1 - PSHx: 18:35 Cholecystectomy; OVARY ABSCESS DRAIN (ys); ko1 - Immunization history:: Adult Immunizations unknown. - Infectious Disease History:: Denies. - Social history:: Smoking status: Patient denies any tobacco usage or history of. ROS: 19:05 MS/extremity: Positive for pain, tenderness, of the anterior left knee, Negative for cp decreased range of motion, deformity, paresthesias, 19:05 Eyes: Negative for injury, pain, redness, and discharge, cp 19:05 Constitutional: Negative for body aches, chills, fever, 19:05 Neck: Negative for pain with movement, pain at rest, 19:05 Back: Negative for pain at rest, pain with movement, 19:05 All other systems are negative, Exam: 19:10 Constitutional: The patient appears in no acute distress, alert, awake, well developed, cp well nourished, obese, 19:10 Head/Face: Normocephalic, atraumatic. cp 19:10 Neck: ROM/movement: is normal, is supple, without pain, no range of motions limitations, 19:10 Chest/axilla: Inspection: normal, 19:10 Cardiovascular: Rate: normal, 19:10 Respiratory: the patient does not display signs of respiratory distress, Respirations: normal, no use of accessory muscles, no retractions, labored breathing, is not present, Breath sounds: are clear throughout, no decreased breath sounds, 19:10 Abdomen/GI: Exam negative for discomfort, distension, guarding, Inspection: abdomen appears normal, 19:10 Back: pain, is absent, ROM is normal, 19:10 Musculoskeletal/extremity: Extremities: noted in the left knee: tenderness and pain to lower patellar, pain with passive ROM, no joint line tenderness, full passive ROM, Vital Signs: 18:32 BP 113 / 83; Pulse 86; Resp 16; Temp 98.3; Pulse Ox 99% ; ko1 20:57 BP 120 / 82; Pulse 80; Resp 16; Pulse Ox 99% on R/A; Pain 4/10; br2 20:57 Pain Scale: Adult br2 MDM: 18:39 Medical Screening Exam initiated cp 20:00 Differential diagnosis: dislocation, closed fracture, contusion, sprain, ligament cp injury. 20:40 Data reviewed: vital signs, nurses notes, radiologic studies, plain films, and as a cp result, I will discharge patient. 20:40 Independent interpretation of the following test(s) in the Emergency Department X-Ray: cp My interpretation is images of left knee negative for fracture. Counseling: I had a detailed discussion with the patient and/or guardian regarding the historical points, exam findings, and any diagnostic results supporting the discharge/admit diagnosis, radiology results, to return to the emergency department if symptoms worsen or persist or if there are any questions or concerns that arise at home. Response to treatment: the patient's symptoms have mildly improved after treatment, and as a result, I will discharge patient. 12/10 18:59 Order name: XRAY Knee LEFT 3 view; Complete Time: 20:39 cp 12/10 20:39 Interpretation: Report reviewed. cp 12/10 20:39 Order name: Dominic wrap-joint; Complete Time: 20:57 cp 12/10 20:39 Order name: Crutches; Complete Time: 20:57 cp Administered Medications: 19:09 Drug: Ibuprofen PO 800 mg PO once Route: PO; br2 19:40 Follow up: Response: No adverse reaction br2 Disposition Summary: 12/10/24 20:41 Discharge Ordered Notes: Location: Home cp Problem: new cp Symptoms: have improved cp Condition: Stable cp Diagnosis - Pain in left knee - from fall cp Followup: cp - With: Eran Ho MD - When: 5 - 6 days - Reason: pain continues Discharge Instructions: - Discharge Summary Sheet cp - Elastic Bandage and RICE Therapy cp - How to Use a Knee Brace cp - Acute Knee Pain, Adult cp Forms: - Medication Reconciliation Form cp - Antibiotic Education cp - Prescription Opioid Use cp - Patient Portal Instructions cp - Leadership Thank You Letter cp Prescriptions: - Naprosyn 500 mg Oral Tablet - take 1 tablet ORAL route 2 times per day take with food; 30 tablet; Refills: 0, cp Product Selection Permitted Addendum: 12/13/2024 08:57 Co-signature as Attending Physician, Gallo Paredes MD I reviewed the patient's care r t provided by the Advanced Practice Provider and agree with the diagnosis and treatment plan. Signatures: Dispatcher [employer] Sanjay Gaitan PA PA cp Petra Torrez, RN RN ko1 Gallo Paredes MD MD rt Chastity Matthews RN RN br2
--- NOTE | 2024-12-10 20:42 | ER ---
Nurse's Notes [facility] Name: Vira Silva Age: 29 yrs Sex: Female : 1995 Arrival Date: 12/10/2024 Time: 18:23 Bed 9 Private MD: Diagnosis: Pain in left knee-from fall Presentation: 12/10 18:32 Chief complaint: Patient states: fell on concrete on , hit left knee, I can ko1 bend it but when i stand and it goes straight it feels like its going to bend the wrong way. Coronavirus screen: At this time, the client does not indicate any symptoms associated with coronavirus-19. Ebola Screen: No symptoms or risks identified at this time. Initial Sepsis Screen: Does the patient meet any 2 criteria? No. Patient's initial sepsis screen is negative. Does the patient have a suspected source of infection? No. Patient's initial sepsis screen is negative. Risk Assessment: Do you want to hurt yourself or someone else? Patient reports no desire to harm self or others. Onset of symptoms is unknown. 18:32 Method Of Arrival: Wheelchair ko1 18:32 Acuity: SERGIO 4 ko1 Triage Assessment: 18:35 General: Appears uncomfortable, Behavior is calm, cooperative, appropriate for age. ko1 Pain: Complains of pain in left knee. Musculoskeletal: Reports pain in left knee. Historical: - Allergies: 18:35 No Known Allergies; ko1 - PMHx: 18:35 GALLSTONES; ko1 - PSHx: 18:35 Cholecystectomy; OVARY ABSCESS DRAIN (ys); ko1 - Immunization history:: Adult Immunizations unknown. - Infectious Disease History:: Denies. - Social history:: Smoking status: Patient denies any tobacco usage or history of. Screenin:[address] [facility] ED Fall Risk Assessment (Adult) History of falling in the last 3 months, hb including since admission No falls in past 3 months (0 pts) Confusion or Disorientation No (0 pts) Intoxicated or Sedated No (0 pts) Impaired Gait No (0 pts) Mobility Assist Device Used No (0 pt) Altered Elimination No (0 pt) Score/Fall Risk Level 0 - 2 = Low Risk Oriented to surroundings, Maintained a safe environment, Educated pt \T\ family on fall prevention, incl call for assistance when getting out of bed. Abuse screen: Denies threats or abuse. Denies injuries from another. Nutritional screening: No deficits noted. Tuberculosis screening: No symptoms or risk factors identified. Assessment: 18:58 General: Appears in no apparent distress. Behavior is calm, cooperative. Neuro: GCS 15. hb Cardiovascular: Patient's skin is warm and dry. Respiratory: Respiratory effort is even, unlabored, Respiratory pattern is regular, symmetrical. 19:18 Reassessment: Patient and/or family updated on plan of care and expected duration. Pain br2 level reassessed. Patient is alert, oriented x 3, equal unlabored respirations, skin warm/dry/pink. General: Appears in no apparent distress. uncomfortable, Behavior is calm, cooperative. Pain: Complains of pain in left knee Pain does not radiate. Pain currently is 7 out of 10 on a pain scale. 20:14 Reassessment: Patient states feeling better. Patient states symptoms have improved. br2 20:59 Reassessment: WRAPPED LEFT KNEE WITH JACQUELINE BANDAGE, TEACHING ON USE OF CRUTCHES. br2 Vital Signs: 18:32 BP 113 / 83; Pulse 86; Resp 16; Temp 98.3; Pulse Ox 99% ; ko1 20:57 BP 120 / 82; Pulse 80; Resp 16; Pulse Ox 99% on R/A; Pain 4/10; br2 20:57 Pain Scale: Adult br2 ED Course: 18:26 Patient arrived in ED. mr 18:35 Triage completed. ko1 18:35 Arm band placed on right wrist. Patient placed in an exam room, on a stretcher, Patient ko1 notified of wait time. 18:39 Sanjay Roblero PA is PHCP. cp 18:39 Gallo Paredes MD is Attending Physician. cp 18:59 Patient has correct armband on for positive identification. Provided Education on: use hb of call light. 18:59 No provider procedures requiring assistance completed. Patient did not have IV access hb during this emergency room visit. 19:04 Chastity Matthews RN is Primary Nurse. br2 19:09 XRAY Knee LEFT 3 view In Process Unspecified. EDMS 20:39 Eran Ho MD is Referral Physician. cp Administered Medications: 19:09 Drug: Ibuprofen PO 800 mg PO once Route: PO; br2 19:40 Follow up: Response: No adverse reaction br2 Medication: 18:59 VIS not applicable for this client. hb Outcome: 20:41 Discharge ordered by . cp 21:00 Discharged to home via wheelchair, br2 21:00 Condition: improved 21:00 Discharge instructions given to patient, Instructed on discharge instructions, follow up and referral plans. Demonstrated understanding of instructions, follow-up care, 21:01 Patient left the ED. br2 Signatures: Dispatcher [employer] EDMS Jil Mcneil, Reg Reg mr Sanjay Roblero, Kelly Jade cp, RN RN hb Petra Torrez RN RN ko1 Chastity Matthews RN RN br2
[2024-12-10 23:42] VITALS: TEMP 98.3; O2SAT 99
[2024-12-10 23:43] VITALS: BP 120/82
== END 2024-12-10 21:01 | disposition home or self-care (01) ==
LOC: ER 18:23
DX: M25.562 Pain in left knee (principal); W18.30XA Fall on same level, unspecified, initial encounter
CPT/HCPCS: 99283